=== PATIENT | female | born 1935 | race Caucasian/White ===

== ENCOUNTER → 2016-03-03 | Outpatient (CLI) | payer OTHER ==
--- NOTE | 2016-03-03 15:45 | CT ---
EXAMINATION TYPE: CT brain wo con DATE OF EXAM: 03/03/2016 2:44 PM COMPARISON: NONE HISTORY: 80-year-old female with frequent falls TECHNIQUE: Examination was done in axial plane without intravenous contrast. Coronal and sagittal reconstructio ns performed. CT DLP: 1091 mGycm Automated exposure control for dose reduction was used. FINDINGS: There is no evidence of acute intracranial hemorrhage, acute ischemic changes, mass, mass-effect, or extra-axial fluid collection. There is no effacement of cerebral sulci or basal subarachnoid cister ns. There is no midline shift. Deleon-white matter distinction is preserved. There appears to be some chronic right parietal calvarial deformity probably on a postsurgical basis. Normal variant persistent cavum septum pellucidum. There is mild ventricular prominence from mild tay tral cerebral volume loss and moderate patchy and confluent white matter hypodensities in both cerebr al hemispheres. More prominent hypodensity in the right occipital lobe benign basal ganglia calcifica tions are noted. Evidence of prior sinonasal surgery with moderate mucosal thickening throughout the left ethmoid air cells, left maxillary sinus, and within air-fluid level in the left maxillary sinus. Visualized orbit s and globes are intact. Minimal partial opacification of the inferior left mastoid air cells. IMPRESSION: 1. No acute intracranial abnormality seen. Mild atrophy and moderate patchy and confluent changes of chronic small vessel ischemic disease. The 2 Some encephalomalacia within the right occipital lobe boles ggests sequela of prior traumatic or vascular insult. 3. Some deformity to the right parietal calvarium could be on a posttraumatic or postsurgical basis. Clinically correlate. 4. Moderate ethmoid and left maxillary sinus disease. Correlate for superimposed acute sinusitis give n air-fluid level. 5. Subtle opacification in the inferior left mastoid air cells could represent retained secretions. C orrelate for any pain in this area to exclude mastoiditis.
== END | disposition home or self-care (01) ==
LOC: RADCTMAIN 13:55
PROVIDERS: ATTEND Psychiatry & Neurology Neurology
DX: G31.9 Degenerative disease of nervous system, unspecified (principal); I67.82 Cerebral ischemia
CPT/HCPCS: 70450

== ENCOUNTER → 2016-09-24 | Outpatient (CLI) | payer OTHER ==
[2016-09-24 16:58] LABS: CH 29.1; CHCM 32.5; HCT 40.6 % (34.0-46.0); HDW 2.34; HGB 13.5 gm/dL (11.4-16.0); MCH 29.9 pg (25.0-35.0); MCHC 33.2 g/dL (31.0-37.0); MCV 89.9 fL (80.0-100.0); Mean Platelet Volume 7.3; RBC 4.52 m/uL (3.80-5.40); RDW 12.5 % (11.5-15.5); WBC 8.8 k/uL (3.8-10.6)
[2016-09-24 17:08] LABS: Anion Gap 12 mmol/L; Blood Urea Nitrogen 21 mg/dL (7-17); Carbon Dioxide 28 mmol/L (22-30); Chloride 105 mmol/L (98-107); Non-African American GFR(MDRD) 60 (>60 ml/min/1.73 sqM); Potassium 4.6 mmol/L (3.5-5.1); Sodium 145 mmol/L (137-145)
== END | disposition home or self-care (01) ==
LOC: LABPAT 16:12
PROVIDERS: ATTEND Internal Medicine Cardiovascular Disease
DX: Z01.812 Encounter for preprocedural laboratory examination (principal); I44.2 Atrioventricular block, complete
CPT/HCPCS: 80051; 82565; 84520; 85027

== ENCOUNTER 2016-09-27 13:51 | Day surgery (SDC) | payer OTHER ==
[2016-09-27 11:06] VITALS: RESP 18
--- NOTE | 2016-09-27 13:36 | P.PCN ---
Date of Procedure: 09/27/16 Preoperative Diagnosis: Battery depletion Postoperative Diagnosis: The same Procedure(s) Performed: Generator replacement Implants: Indications for Procedure: Operative Findings: Description of Procedure: HISTORY: This 81-year-old female was noted to have evidence of battery depletion on recent evaluation and patient has reached WINNIE. Patient is advised to have generator change. CONSENT: I have discussed the risks and benefits as related to the above mentioned procedure and both sedation/analgesia as well as necessary blood product administration. The patient has indicated understanding and acceptance of the risks of the procedure discussed. PROCEDURE: Patient was brought to the lab in a fasting state. Patient was given IV Versed and fentanyl for sedation. The skin over the existing pulse generator was infiltrated with lidocaine. An incision was made in the skin and was deepened until the pectoral fascia was exposed. Hemostasis was obtained. The existing pulse generator was pulled out of the pocket. The leads were disconnected and were checked for thresholds. Conscious Sedation: Versed : 0 mg Fentanyl : 25 g Duration : 27 minutes THRESHOLDS: ATRIAL: The minimal patient threshold is a 0.7 V at pulse width of 0.4 ms with impedance of 389 ohms P-wave:, 2.1 mV VENTRICULAR: 0.9 V at a pulse width of 0.4 ms with impedance of 6 and 40 ohms R-wave: 16.9 mV THE LEADS: ATRIAL: This is manufactured by [employer] model number is 5076. Serial number is [id number] VENTRICULAR: This is manufactured by [employer]. Model number is 5076. Serial number is [id number] THE EXPLANTED DEVICE: This is manufactured by [employer]. Model number is capital VDER 01 and the serial number is [id number] THE NEW DEVICE: . This is manufactured by [employer]. Model number is L101. Serial number is [id number] The leads were then connected to a new pulse generator. Pacemaker seems to function normally. The pocket was irrigated with antibiotics. The pocket was closed in the usual fashion. Pectoral fascia was closed with 2-0 Prolene, the subcutaneous tissue was closed with 3-0 Prolene and the skin was closed with 4- 0 Prolene. Patient tolerated the procedure well . Patient will be monitored on the telemetry unit for 2-3 hours. If stable patient be discharged home later today. PLAN: Patient will be monitored for the next several hours. If stable patient be discharged home. She'll continue prophylactic antibiotics and home medications. She'll keep the dressing dry for the one week. She will report if she had any significant pain, swelling, fever or chills. follow-up in the office in one week FALLOW UP: One week with Dr. Dia and also in the device clinic.
[~2016-09-27 13:51] MED LIST: ACETAMINOPHEN TAB 325 MG TAB PO PRN; HYDROcodone/APAP 5-325MG 1 EACH TAB PO PRN; LIDOCAINE 1% (PF) 10MG/ML VIAL SQ ONE; SODIUM CHLORIDE 0.9% 1,000 ML IV SCH; ceFAZolin 1,000 MG in SODIUM CHLORIDE 0.9% IRRIGATIO 250 ML IRRIGATION ONE; ceFAZolin 2 GM in SODIUM CHLORIDE 0.9% 100 ML IVPB ONE; fentaNYL (PF) 50 MCG/ML 2 ML AMP IVP ONE
[2016-09-27 14:43] VITALS: TEMP 97.7
[2016-09-27 17:40] VITALS: BP 138/70; PULSE 57
--- NOTE | 2016-09-30 08:00 | CDI ---
Documentation Clarification OP Dear Dr. Dia, Please provide clarification regarding the sedation provided. The Procedure note just states that Versed and Fentynal wer given. Please clarify if Moderate /Conscious sedation or GA/Unconscious sedation was provided to the patient. PLEASE RESPOND TO THIS QUERY BY DICTATING AN ADDENDUM TO YOUR PROCEDURE NOTE. Thank you for your assistance. Marta Soriano [facility] If you have any questions, please contact Cutting Room Supervisor, Nika Burton at . [facility]
== END 2016-09-27 18:50 | disposition home or self-care (01) ==
LOC: CATHEP 13:51 → 3OBS 13:52 → CATHEP 18:50
PROVIDERS: ATTEND Internal Medicine Cardiovascular Disease
DX: Z45.010 Encounter for checking and testing of cardiac pacemaker pulse generator [battery] (principal); I44.2 Atrioventricular block, complete; E78.5 Hyperlipidemia, unspecified; I10 Essential (primary) hypertension; Z79.82 Long term (current) use of aspirin; Z79.51 Long term (current) use of inhaled steroids; Z79.899 Other long term (current) drug therapy; Z91.018 Allergy to other foods; Z91.09 Other allergy status, other than to drugs and biological substances
CPT/HCPCS: 33228

== ENCOUNTER → 2016-11-11 | Outpatient (CLI) | payer OTHER ==
--- NOTE | 2016-11-12 10:55 | MM ---
Reason for exam: screening (asymptomatic). Last mammogram was performed 1 year and 2 months ago. History: Patient is postmenopausal and history of other cancer. Physical Findings: A clinical breast exam by your physician is recommended on an annual basis and results should be correlated with mammographic findings. MG Screening Mammo w CAD Bilateral CC and MLO view(s) were taken. Prior study comparison: September 15, 2015, bilateral MG 3d screening mammo w/cad. September 13, 2014, mammogram, performed at [facility]. There are scattered fibroglandular densities. No significant changes when compared with prior studies. ASSESSMENT: Benign, BI-RAD 2 RECOMMENDATION: Routine screening mammogram of both breasts in 1 year.
== END | disposition home or self-care (01) ==
LOC: RADMAMWWP 11:59
PROVIDERS: ATTEND Family Medicine
DX: Z12.31 Encounter for screening mammogram for malignant neoplasm of breast (principal)

== ENCOUNTER → 2016-11-11 | Outpatient (CLI) | payer OTHER ==
--- NOTE | 2016-11-11 16:22 | BD ---
EXAMINATION TYPE: MG DEXA axial skeleton. DATE OF EXAM: 11/11/2016 COMPARISON: NONE CLINICAL HISTORY: 81-year-old female osteoporosis Height: 5 FT 4 IN Weight: 172 FRAX RISK QUESTIONS: Alcohol (3 or more units per day): NO Family History (Parent hip fracture): NO Glucocorticoids (More than 3mos): NO (Ex: prednisone, prednisolone, methylprednisolone, dexamethasone, and hydrocortisone). History of Fracture in Adulthood: YES Secondary Osteoporosis: 1. Type 1 Diabetes: NO 2. Hyperthyroidism: NO 3. Menopause before 45: YES 4. Malnutrition: NO 5. Chronic liver disease: NO Rheumatoid Arthritis: NO Current Tobacco Use: NO RISK FACTORS HISTORY OF: Surgery to Spine/Hip(right/left)/Wrist (right/left): LUMBAR SURG When: 1982 Postmenopausal woman: PART HYST AGE 34 Lost more than 2 inches in height since high school: YES MEDICATIONS: Additional Medications: BLOOD PRESSURE MEDS X 2 , OMEPRAZOLE,BABY ASPIRIN,CALCIUM, VIT D, Additional History: BLADDER CANCER, BRAIN CANCER EXAM MEASUREMENTS: Bone mineral densitometry was performed using the [employer] System. Bone mineral density as measured about the Lumbar spine is: ----- L1-L4(G/cm2): LUMBAR SURG Bone mineral density about the R hip (g/cm2): 0.863 Bone mineral density about the L hip (g/cm2): 0.852 T Score values are as follows: -----R Neck: -1.3 -----L Neck: -1.3 -----R Total: -0.7 -----L Total: -1.3 BASELINE IMPRESSION: Osteopenia (T Score between -2.5 and -1 as noted by T score values There is slightly increased risk of fracture and the patient may be considered for treatment. Re-Scre en 2-5 years. NOTE: T-SCORE=SD OF THE YOUNG ADULT MEAN.
== END | disposition home or self-care (01) ==
LOC: RADBDWWP 12:05
PROVIDERS: ATTEND Family Medicine
DX: M85.88 Other specified disorders of bone density and structure, other site (principal)
CPT/HCPCS: 77080

== ENCOUNTER → 2019-02-01 | Outpatient (CLI) | payer OTHER ==
--- NOTE | 2019-02-02 15:02 | MM ---
Reason for exam: screening (asymptomatic). Last mammogram was performed 1 year and 1 month ago. History: Patient is postmenopausal and history of other cancer. Physical Findings: A clinical breast exam by your physician is recommended on an annual basis and results should be correlated with mammographic findings. MG 3D Screening Mammo W/Cad Bilateral CC and MLO view(s) were taken. Prior study comparison: January 12, 2018, bilateral MG screening mammo w CAD. November 11, 2016, bilateral MG screening mammo w CAD. The breast tissue is heterogeneously dense. This may lower the sensitivity of mammography. Focal asymmetry upper outer right breast posterior third position. ASSESSMENT: Incomplete: need additional imaging evaluation, BI-RAD 0 RECOMMENDATION: Special view mammogram of the right breast. If lesion persists on supplemental views, image directed ultrasound is recommended. [facility] will attempt to contact patient to return for supplemental views and ultrasound if indicated.
== END | disposition home or self-care (01) ==
LOC: RADMAMWWP 10:18
DX: Z12.31 Encounter for screening mammogram for malignant neoplasm of breast (principal)
CPT/HCPCS: 77063; 77067

== ENCOUNTER → 2019-02-16 | Outpatient (CLI) | payer OTHER ==
--- NOTE | 2019-02-19 08:45 | MM ---
Reason for exam: additional evaluation requested from abnormal screening. Last mammogram was performed less than 1 month ago. History: Patient is postmenopausal and history of other cancer. Physical Findings: Nurse did not find any significant physical abnormalities on exam. MG 3D Work Up W/Cad RT Spot compression CC, spot compression MLO, and ML view(s) were taken of the right breast. Prior study comparison: February 01, 2019, bilateral MG 3d screening mammo w/cad. January 12, 2018, bilateral MG screening mammo w CAD. There are scattered fibroglandular densities. No persisting abnormality on spot 3D views. These results were verbally communicated with the patient and result sheet given to the patient on 02/16/19. ASSESSMENT: Negative, BI-RAD 1 RECOMMENDATION: Return to routine screening mammogram schedule for both breasts.
== END | disposition home or self-care (01) ==
LOC: RADMAMWWP 13:51
DX: R92.8 Other abnormal and inconclusive findings on diagnostic imaging of breast (principal)
CPT/HCPCS: 77061; 77065

== ENCOUNTER → 2020-05-13 | Outpatient (CLI) | payer OTHER ==
--- NOTE | 2020-05-15 12:31 | MM ---
Reason for exam: screening (asymptomatic). Last mammogram was performed 1 year and 3 months ago. History: Patient is postmenopausal and history of other cancer. Physical Findings: A clinical breast exam by your physician is recommended on an annual basis and results should be correlated with mammographic findings. MG 3D Screening Mammo W/Cad Bilateral CC and MLO view(s) were taken. Prior study comparison: February 16, 2019, right breast MG 3d work up w/cad RT. February 01, 2019, bilateral MG 3d screening mammo w/cad. No significant changes when compared with prior studies. ASSESSMENT: Benign, BI-RAD 2 RECOMMENDATION: Routine screening mammogram of both breasts in 1 year.
== END | disposition home or self-care (01) ==
LOC: RADMAMWWP 12:30
DX: Z12.31 Encounter for screening mammogram for malignant neoplasm of breast (principal)
CPT/HCPCS: 77063; 77067

== ENCOUNTER 2020-06-26 13:05 | Emergency (ER) | payer OTHER ==
[2020-06-26 13:17] VITALS: BP 151/71; PULSE 68; RESP 18; TEMP 97.6
--- NOTE | 2020-06-26 14:38 | CT ---
EXAMINATION TYPE: CT brain amy wo con DATE OF EXAM: 06/26/2020 COMPARISON: CT brain 03/03/2016 HISTORY: Fall, right periorbital injury. CT DLP: 1027.9 mGycm Automated exposure control for dose reduction was used. There is cerebral cortical atrophy. There is no mass effect nor midline shift. There is no sign of in tracranial hemorrhage. 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 There is hypodensity right medial occipital lobe consistent with old infarct and encephaloma lacia. There is patchy hypodensity throughout the periventricular white matter. There is mucosal thickening in the maxillary ethmoid frontal and sphenoid sinuses. Cervical vertebra have normal alignment. There is no evidence of a fracture. There is mild cervical d isc space narrowing. Facet joints are intact. There is multilevel mild facet arthropathy. There is no rmal aeration of the mastoid sinuses. Skull base is intact. IMPRESSION: Cerebral atrophy and chronic small vessel ischemia. Old right occipital lobe infarct. No acute intrac ranial abnormality. No significant change. Mild spondylotic changes in the cervical spine. No fracture. Pansinusitis that appears slightly worse than old exam.
--- NOTE | 2020-06-26 14:44 | CT ---
EXAMINATION TYPE: CT facial bones wo con DATE OF EXAM: 06/26/2020 COMPARISON: None HISTORY: Fall, right periorbital injury. CT DLP: mGycm Automated exposure control for dose reduction was used. Images obtained from the bottom of the mandible to the top of the frontal sinuses without contrast. There is comminuted fractures of the nasal bone which is deviated slightly to the left side. There is some loss of bone on the anterior right side of the nasal bone in this is unchanged compared to old brain CT scan of 03/03/2016. Fractures could also be old. There is extensive mucosal thickening in the paranasal sinuses. There is significant opacification ri ght maxillary sinus. There is previous surgery and osteotomy of the medial wall of the maxillary sinu ses. There is intact zygomatic arches. I see no evidence of a blowout fracture. Orbital margins are i ntact. I see no sign of a fracture of the maxilla. The mandibular ring is intact. Temporomandibular joints appear intact. There is no evidence of orbita l mass. The globes are symmetric. IMPRESSION: There is pansinusitis that is increased compared to CT scan of 03/03/2016. Nasal bone fracture is probably not changed compared to the old CT scan which only includes partial v isualization of the nasal bone. No evidence of orbital fracture.
--- NOTE | 2020-06-26 14:49 | XR ---
EXAMINATION TYPE: XR ribs LT w pa chest xray DATE OF EXAM: 06/26/2020 COMPARISON: 06/21/1949 HISTORY: Pain TECHNIQUE: Single view of the chest 4 views of the ribs are submitted. FINDINGS: The lungs are clear. No Evidence for pneumothorax. No evidence for focal contusion. Medi astinal structures are midline. Evaluation of the ribs fails to demonstrate evidence for displaced r ib fracture or secondary sign of rib fracture. IMPRESSION: Negative study
--- NOTE | 2020-06-26 14:50 | XR ---
EXAMINATION TYPE: XR hand complete LT DATE OF EXAM: 06/26/2020 CLINICAL HISTORY: pain TECHNIQUE: Frontal, lateral and oblique images of the left hand are obtained. COMPARISON: None. FINDINGS: There is no acute fracture/dislocation evident. The joint spaces appear within normal limi ts. The overlying soft tissue appears unremarkable. IMPRESSION: There is no acute fracture or dislocation. ICD 10 NO FRACTURE, INITIAL EVALUATION
--- NOTE | 2020-06-26 14:52 | XR ---
EXAMINATION TYPE: XR foot complete LT DATE OF EXAM: 06/26/2020 CLINICAL HISTORY: pain TECHNIQUE: Frontal, lateral and oblique images of the left foot are obtained. COMPARISON: None. FINDINGS: There is cortical lucency overlying the neck region of the proximal phalanx left great toe. Nondisplaced fractures difficult to exclude. The joint spaces appear within normal limits. The ove rlying soft tissue appears unremarkable. IMPRESSION: There is cortical lucency overlying the neck region of the proximal phalanx left great toe. Nondispla nilsa fractures difficult to exclude.
--- NOTE | 2020-06-26 15:18 | ED ---
Fall HPI - General Chief Complaint: Fall Stated Complaint: fall Time Seen by Provider: 06/26/20 13:28 Source: patient Mode of arrival: ambulatory - History of Present Illness Initial Comments: Patient is an 85-year-old female presenting to emergency Department with complaints of some pain after she fell this morning. She states that about 8 AM this morning she tripped over her feet and fell forward landing mostly on her left side also hitting the right side of her face. She denies loss of consciousness, she is not on blood thinners. She is complaining of pain around her right eye, her left finger, left side of her chest as well as her left big toe. Into her doctor's office however was unable to so she decided to come into the ER for further evaluation. She states her pain is minimal about a 3/10, she did not take anything for pain yet. She denies any abdominal pain, no nausea or vomiting, no lightheadedness or dizziness. She denies any headaches other than around her left eye. She has no further complaints at this time. Upon arrival to the ER, her vitals are stable. - Related Data Home Medications Medication Instructions Recorded Confirmed Ammonium Lactate Cream [Lac-Hydrin 1 applic TOPICAL DAILY 09/27/16 09/27/16 12% Cream] Aspirin [Adult Low Dose Aspirin EC] 81 mg PO DAILY 09/27/16 09/27/16 Atorvastatin [Lipitor] 40 mg PO HS 09/27/16 09/27/16 Calcium Carbonate 500 mg PO DAILY 09/27/16 09/27/16 Cholecalciferol [Vitamin D3] 1,000 unit PO DAILY 09/27/16 09/27/16 Diltiazem HCl [Diltiazem ER] 180 mg PO Q24HR 09/27/16 09/27/16 FLUoxetine HCL [Sarafem] 20 mg PO DAILY 09/27/16 09/27/16 Pantoprazole Sodium 40 mg PO BID 09/27/16 09/27/16 Propranolol HCl 20 mg PO BID 09/27/16 09/27/16 diazePAM [Diazepam] 10 mg PO DIRECTED PRN 09/27/16 09/27/16 Previous Rx's Medication Instructions Recorded Cephalexin [Keflex] 500 mg PO Q8HR #10 cap 09/27/16 Allergies Allergy/AdvReac Type Severity Reaction Status Date / Time Fish Containing Products Allergy Unknown Verified 06/26/20 13:17 Iodine and Iodide Containing Allergy Unknown Verified 06/26/20 13:17 Produc Review of Systems ROS Statement: Those systems with pertinent positive or pertinent negative responses have been documented in the HPI. ROS Other: All systems not noted in ROS Statement are negative. Past Medical History Past Medical History: Cancer Additional Past Medical History / Comment(s): brain and bladder CA History of Any Multi-Drug Resistant Organisms: None Reported Past Surgical History: Pacemaker Smoking Status: Never smoker Past Alcohol Use History: None Reported Past Drug Use History: None Reported General Exam - General Exam Comments Initial Comments: GENERAL: Patient is well-developed and well-nourished. Patient is nontoxic and in no acute distress. HEAD: Atraumatic, normocephalic. There are no hematomas, no signs of basilar skull fracture. EYES: Pupils equal round and reactive to light, extraocular movements intact, sclera anicteric, conjunctiva are normal. Eyelids were unremarkable. Patient has some mild bruising and mild swelling noted around her right thigh, some mild tenderness on inferior orbital bone ENT: TMs normal, nares patent, oropharynx clear without exudates. Moist mucous membranes. NECK: Normal range of motion, supple without lymphadenopathy or JVD. No midline tenderness. LUNGS: Unlabored respirations. Breath sounds clear to auscultation bilaterally and equal. No wheezes rales or rhonchi. HEART: Regular rate and rhythm without murmurs, rubs or gallops. ABDOMEN: Soft, nontender, normoactive bowel sounds. No guarding, no rebound. No masses appreciated. : Deferred MUSCULOSKELETAL: Normal extremities with adequate strength and normal range of motion. No clubbing or cyanosis. Patient has pain with palpation of the left great toe, she has bruising and swelling to this area, she does have active range of motion, neurovascular intact. She also has some bruising noted to the left breast, some mild tenderness with palpation left side of the ribs. NEUROLOGICAL: Patient is alert and oriented x 3. Motor and sensory are also intact. Cranial nerves II through XII grossly intact. Symmetrical smile. Normal speech, normal gait. PSYCH: Normal mood, normal affect. SKIN: Warm, Dry, normal turgor, no rashes. Patient has a small superficial abrasion noted to the left index finger, no active bleeding, no sutures indicated. Limitations: no limitations Course Vital Signs 06/26/20 13:13 Temperature 97.6 F Pulse Rate 68 Respiratory 18 Rate Blood Pressure 151/71 O2 Sat by Pulse 100 Oximetry Procedures - Orthopedic Splinting/Casting Injury #1 Side: left Lower Extremity Injury Location: toe Lower Extremity Immobilizer: post-op shoe Medical Decision Making - Medical Decision Making Patient is an 85-year-old female here after a fall at her place for a BM this morning. No loss of consciousness, she is not on blood thinners. She hit the right side of her eye, complaining of left sided chest pain, left index finger pain and pain of the left great toe. CT of the brain and C-spine showed no acute fractures, CT of the facial bones shows an old nasal bone fracture, no fracture of the orbits. X-rays of the left hand is normal, chest x-ray relaxers are also normal. X-rays of the left foot show a cortical lucency over the neck region and the proximal phalanx of the left great toe, nondisplaced fracture is difficult to exclude. I will send patient home and a surgical boot. She will follow up with orthopedics through the [facility]. She inclined anything for pain today. I recommended Tylenol for any discomfort at home. Patient is stable for discharge. Patient is in agreement with this plan of care. Return parameters were discussed with the patient and they verbalized understanding. Case discussed with Dr. Ferraro. Disposition Clinical Impression: Fall, Closed fracture of left great toe Disposition: HOME SELF-CARE Condition: Stable Instructions (If sedation given, give patient instructions): Toe Fracture (ED) Additional Instructions: Please return to the Emergency Department if symptoms worsen or any other concerns. Recommend surgical boot as discussed. Please follow up with orthopedics to the [facility]. May take Tylenol for any discomfort. May also apply ice to the area for pain and swelling. Is patient prescribed a controlled substance at d/c from ED?: No Referrals: [facility],Clinic [Primary Care Provider] - 1-2 days Time of Disposition: 15:17
== END 2020-06-26 15:32 | disposition home or self-care (01) ==
LOC: EC 13:05
DX: S92.412A Displaced fracture of proximal phalanx of left great toe, initial encounter for closed fracture (principal); S20.02XA Contusion of left breast, initial encounter; R51.9 Headache, unspecified; M79.645 Pain in left finger(s); Z79.82 Long term (current) use of aspirin; W01.10XA Fall on same level from slipping, tripping and stumbling with subsequent striking against unspecified object, initial encounter
CPT/HCPCS: 70450; 70486; 72125; 99284

== ENCOUNTER 2021-02-14 16:30 | Emergency (ER) | payer OTHER ==
[2021-02-14 17:36] VITALS: RESP 18
[2021-02-14] MEDS ORDERED: ONDANSETRON 4 MG/2 ML VIAL IVP STA (18:05)
[2021-02-14] MEDS ORDERED: TRANEXAMIC ACID 1,000 MG/10 ML VIAL IRRIGATION ONE (18:05)
[2021-02-14] MEDS ORDERED: SODIUM CHLORIDE 0.9% 1,000 ML IV STA (18:05)
--- NOTE | 2021-02-14 18:06 | ED ---
ENT HPI - General Chief complaint: ENT Stated complaint: bloody nose, vomitting blood Time Seen by Provider: 02/14/21 17:33 Source: patient Mode of arrival: ambulatory Limitations: no limitations - History of Present Illness Initial comments: 85 she'll female presents to the emergency departments with reported nausea, vomiting and dizziness after having a nosebleed all day. Reports that her nose began bleeding around 11:00 this morning. She does take a baby aspirin. States that she attempted to get it to stop with direct pressure however was unsu ccessful. She did end up swallowing a portion of the blood and had an upset stomach. She then ended up vomiting in the waiting room. Patient does not take any other blood thinners. Denies any nasal trauma. She denies any chest pain or abdominal pain. Does have a history of peptic ulcer however this was 30 years ago. She denies any abdominal pain. No other alleviating, precipitating or modifying factors - Related Data Home Medications Medication Instructions Recorded Confirmed Ammonium Lactate Cream [Lac-Hydrin 1 applic TOPICAL DAILY 09/27/16 09/27/16 12% Cream] Aspirin [Adult Low Dose Aspirin EC] 81 mg PO DAILY 09/27/16 09/27/16 Atorvastatin [Lipitor] 40 mg PO HS 09/27/16 09/27/16 Calcium Carbonate 500 mg PO DAILY 09/27/16 09/27/16 Cholecalciferol [Vitamin D3] 1,000 unit PO DAILY 09/27/16 09/27/16 Diltiazem HCl [Diltiazem ER] 180 mg PO Q24HR 09/27/16 09/27/16 FLUoxetine HCL [Sarafem] 20 mg PO DAILY 09/27/16 09/27/16 Pantoprazole Sodium 40 mg PO BID 09/27/16 09/27/16 Propranolol HCl 20 mg PO BID 09/27/16 09/27/16 diazePAM [Diazepam] 10 mg PO DIRECTED PRN 09/27/16 09/27/16 Previous Rx's Medication Instructions Recorded Cephalexin [Keflex] 500 mg PO Q8HR #10 cap 09/27/16 Cephalexin [Keflex] 500 mg PO Q6HR 1 Days #12 cap 02/14/21 Allergies Allergy/AdvReac Type Severity Reaction Status Date / Time Fish Containing Products Allergy Unknown Verified 06/26/20 13:17 Iodine and Iodide Containing Allergy Unknown Verified 06/26/20 13:17 Produc Review of Systems ROS Statement: Those systems with pertinent positive or pertinent negative responses have been documented in the HPI. ROS Other: All systems not noted in ROS Statement are negative. Past Medical History Past Medical History: Cancer Additional Past Medical History / Comment(s): brain and bladder CA History of Any Multi-Drug Resistant Organisms: None Reported Past Surgical History: Pacemaker Past Psychological History: No Psychological Hx Reported Smoking Status: Never smoker Past Alcohol Use History: None Reported Past Drug Use History: None Reported General Exam Limitations: no limitations General appearance: alert, in no apparent distress Head exam: Present: atraumatic, normocephalic, normal inspection Eye exam: Present: normal appearance, PERRL, EOMI. Absent: scleral icterus, conjunctival injection, periorbital swelling ENT exam: Present: other (epistaxsis left nare - red, abradded nasal septum with pinpoint areas of active blood oozing. No masses. No septal hematoma. No posterior nasal bleeding. No blood in the posterior pharynx) Neck exam: Present: normal inspection. Absent: tenderness, meningismus, lym phadenopathy Respiratory exam: Present: normal lung sounds bilaterally. Absent: respiratory distress, wheezes, rales, rhonchi, stridor Cardiovascular Exam: Present: regular rate, normal rhythm, normal heart sounds. Absent: systolic murmur, diastolic murmur, rubs, gallop, clicks GI/Abdominal exam: Present: soft, normal bowel sounds. Absent: distended, tenderness, guarding, rebound, rigid Extremities exam: Present: normal inspection, full ROM, normal capillary refill. Absent: tenderness, pedal edema, joint swelling, calf tenderness Back exam: Present: normal inspection Neurological exam: Present: alert, oriented X3, CN II-XII intact Psychiatric exam: Present: normal affect, normal mood Skin exam: Present: warm, dry, intact, normal color. Absent: rash Course Vital Signs 02/14/21 02/14/21 02/14/21 17:32 19:25 20:40 Temperature 98.6 F 98.8 F Pulse Rate 64 62 78 Respiratory 18 18 18 Rate Blood Pressure 96/63 118/77 124/82 O2 Sat by Pulse 97 94 L 94 L Oximetry Medical Decision Making - Medical Decision Making Upon arrival patient was placed into room 3. A thorough history and physical exam is performed. Patient has some oozing from the left nare. Laboratory studies are conducted as the patient does have lower blood pressures and is reporting that she feels dizzy. Hemoglobin is 11.3. I have a previous value from 2017 which was 13.5 but nothing in between. Patient was given a liter bolus of normal saline and formal grams of Zofran. I also ordered TX a however this does take over an hour to come up from pharmacy. It is placed on a cotton ball and this is placed in the patient's left nare for 15 minutes. The ball then removed and the patient continues to have some oozing. Because this the patient's nose is packed with an 8 cm Merocel. This was coated in bacitracin. Patient does not have any identifiable signs of a posterior nasal bleed. No bleeding inside the patient's mouth. I believe the patient is throwing up blood as she does have that identifiable epistaxis and she admits to swallowing some of the clots. Patient will be discharged home and is instructed to keep the packing in place for the next 48-72 hours. She needs to follow up with the ENT to have it removed. She will be placed on Keflex while the packing is in place. Instructed not to blow her nose. Return to the emergency room for any new or worsening symptoms. Patient was in agreement with the treatment plan and discharged home in stable condition - Lab Data Result diagrams: 02/14/21 18:11 02/14/21 18:11 Lab Results 02/14/21 02/14/21 02/14/21 Range/Units 18:11 18:11 18:11 WBC 11.8 H (3.8-10.6) k/uL RBC 3.71 L (3.80-5.40) m/uL Hgb 11.3 L (11.4-16.0) gm/dL Hct 34.3 (34.0-46.0) % MCV 92.5 (80.0-100.0) fL MCH 30.4 (25.0-35.0) pg MCHC 32.9 (31.0-37.0) g/dL RDW 12.2 (11.5-15.5) % Plt Count 280 (150-450) k/uL MPV 8.0 Neutrophils % 80 % Lymphocytes % 14 % Monocytes % 4 % Eosinophils % 2 % Basophils % 1 % Neutrophils # 9.4 H (1.3-7.7) k/uL Lymphocytes # 1.6 (1.0-4.8) k/uL Monocytes # 0.5 (0-1.0) k/uL Eosinophils # 0.2 (0-0.7) k/uL Basophils # 0.1 (0-0.2) k/uL PT 10.7 (9.0-12.0) sec INR 1.0 (<1.2) APTT 20.1 L (22.0-30.0) sec Sodium 139 (137-145) mmol/L Potassium 4.8 (3.5-5.1) mmol/L Chloride 104 (98-107) mmol/L Carbon Dioxide 24 (22-30) mmol/L Anion Gap 11 mmol/L BUN 27 H (7-17) mg/dL Creatinine 1.16 H (0.52-1.04) mg/dL Est GFR (CKD-EPI)AfAm 50 (>60 ml/min/1.73 sqM) Est GFR (CKD-EPI)NonAf 43 (>60 ml/min/1.73 sqM) Glucose 161 H (74-99) mg/dL Calcium 9.3 (8.4-10.2) mg/dL Total Bilirubin 0.7 (0.2-1.3) mg/dL AST 22 (14-36) U/L ALT 12 (4-34) U/L Alkaline Phosphatase 100 (38-126) U/L Total Protein 6.5 (6.3-8.2) g/dL Albumin 3.4 L (3.5-5.0) g/dL Disposition Clinical Impression: Nosebleed, Pre-syncope Disposition: HOME SELF-CARE Instructions (If sedation given, give patient instructions): Nosebleed (ED) Additional Instructions: Please follow-up with the ENT to have your nasal packing removed in 48-72 hours. You should be on antibiotics while this packing is in place. Return to the emergency room for any new or worsening symptoms Prescriptions: Cephalexin [Keflex] 500 mg PO Q6HR 1 Days #12 cap Is patient prescribed a controlled substance at d/c from ED?: No Referrals: [facility],Clinic [Primary Care Provider] - 1-2 days Agus Moore MD [STAFF PHYSICIAN] - 1-2 days Time of Disposition: 20:35
[2021-02-14 18:23] LABS: Basophils # (A) 0.1 k/uL (0-0.2); Basophils % (A) 1 %; Eosinophils # (A) 0.2 k/uL (0-0.7); Eosinophils % (A) 2 %; HCT 34.3 % (34.0-46.0); HGB 11.3 gm/dL (11.4-16.0); Lymphocytes # (A) 1.6 k/uL (1.0-4.8); Lymphocytes % (A) 14 %; MCH 30.4 pg (25.0-35.0); MCHC 32.9 g/dL (31.0-37.0); MCV 92.5 fL (80.0-100.0); Monocytes # (A) 0.5 k/uL (0-1.0); Monocytes % (A) 4 %; Neutrophils # (A) 9.4 k/uL (1.3-7.7); Neutrophils % (A) 80 %; Platelet Count 280 k/uL (150-450); RBC 3.71 m/uL (3.80-5.40); RDW 12.2 % (11.5-15.5); WBC 11.8 k/uL (3.8-10.6)
[2021-02-14 18:41] LABS: Albumin 3.4 g/dL (3.5-5.0); Calcium 9.3 mg/dL (8.4-10.2); Potassium 4.8 mmol/L (3.5-5.1); Total Bilirubin 0.7 mg/dL (0.2-1.3); Total Protein 6.5 g/dL (6.3-8.2)
[2021-02-14 19:09] LABS: Prothrombin Time 10.7 sec (9.0-12.0)
[2021-02-14 19:17] LABS: Partial Thromboplastin Time 20.1 sec (22.0-30.0)
[2021-02-14 19:37] VITALS: TEMP 98.8
[2021-02-14] MEDS ORDERED: BACITRACIN OINT 1 EACH PACKET TOPICAL ONE (20:11)
[2021-02-14 21:01] VITALS: BP 124/82; PULSE 78
== END 2021-02-14 20:42 | disposition home or self-care (01) ==
LOC: EC 16:30
DX: R04.0 Epistaxis (principal); R55 Syncope and collapse; R11.2 Nausea with vomiting, unspecified; Z91.013 Allergy to seafood; Z88.8 Allergy status to other drugs, medicaments and biological substances; Z79.82 Long term (current) use of aspirin
CPT/HCPCS: 36415; 80053; 85025; 85610; 85730; 99284; 96374; 96361; J2405

== ENCOUNTER 2021-06-05 10:53 | Emergency (ER) | payer OTHER ==
[2021-06-05 11:52] VITALS: TEMP 98.2
--- NOTE | 2021-06-05 12:36 | ED ---
General Adult HPI - General Chief complaint: Dizziness Stated complaint: Fall/Dizziness Time Seen by Provider: 06/05/21 12:04 Source: patient, family Mode of arrival: ambulatory Limitations: no limitations - History of Present Illness Initial comments: Dictation was produced using [employer] dictation software. please excuse any grammatical, word or spelling errors. Chief Complaint: 86-year-old female with past medical history of brain and bladder cancer presents emergency department for left-sided hip pain, frequent falls and episodes of vertigo History of Present Illness: Which is a 86-year-old female last several days she's been having worsening symptoms of frequent falls, left hip pain vertigo. Patient states she's been diagnosed with vertigo several years ago. Patient denies any numbness tingling weakness paresthesias to the extremities. She does complain of some mild left-sided hip pain. Patient states she feels a little dizzy. She does have paroxysms of vertigo whenever she lies her head back. Denies any vertiginous symptoms at the moment however he does complain of some mild dizziness. Denies any pain complex. No constitutional symptoms. The ROS documented in this emergency department record has been reviewed and confirmed by me. Those systems with pertinent positive or negative responses have been documented in the HPI. All other systems are other negative and/or noncontributory. PHYSICAL EXAM: General Impression: Alert and oriented x3, not in acute distress HEENT: Normocephalic atraumatic, extra-ocular movements intact, pupils equal and reactive to light bilaterally, mucous membranes moist. Cardiovascular: Heart regular rate and rhythm Chest: Able to complete full sentences, no retractions, no tachypnea Abdomen: abdomen soft, non-tender, non-distended, no organomegaly Musculoskeletal: Pulses present and equal in all extremities, no peripheral edema Motor: no focal deficits noted Neurological: CN II-XII grossly intact, no focal motor or sensory deficits noted Skin: Intact with no visualized rashes Psych: Normal affect and mood ED course: 86-year-old female presents to the emergency department for multiple falls, paroxysms of vertigo, left hip pain and dizziness. Vital signs upon arrival are within acceptable limits. Laboratory evaluation obtained. CBC, coag panel, metabolic panel is unremarkable. Urinalysis is negative. Imaging studies were obtained. Computed tomography scan of the head and C-spine shows no acute processes. 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 Chest x-ray is nonacute. Patient observed in emergency department for approximately 4 hours and 43 minutes. She is reevaluated at bedside at 3:30 PM on be stable medical condit ion. Patient's daughters at the bedside. Patient's daughter reports that she was at home however does not want to be placed in a senior living. Patient was given the option to be admitted however she refused. She lives by herself. She does have family. Daughter was told to follow-up with patient's primary care doctor to have home health care nursing arranged or to inquire about perhaps short-term rehab. EKG interpretation: Ventricular rate 60, atrial pacemaker, ME interval 150, QS 152, QTc 505. No ME prolongation, no QTC prolongation, no ST or T-wave changes noted. No old EKG for comparison. Overall, this EKG is unremarkable - Related Data Home Medications Medication Instructions Recorded Confirmed Ammonium Lactate Cream [Lac-Hydrin 1 applic TOPICAL DAILY 09/27/16 09/27/16 12% Cream] Aspirin [Adult Low Dose Aspirin EC] 81 mg PO DAILY 09/27/16 09/27/16 Atorvastatin [Lipitor] 40 mg PO HS 09/27/16 09/27/16 Calcium Carbonate 500 mg PO DAILY 09/27/16 09/27/16 Cholecalciferol [Vitamin D3] 1,000 unit PO DAILY 09/27/16 09/27/16 Diltiazem HCl [Diltiazem ER] 180 mg PO Q24HR 09/27/16 09/27/16 FLUoxetine HCL [Sarafem] 20 mg PO DAILY 09/27/16 09/27/16 Pantoprazole Sodium 40 mg PO BID 09/27/16 09/27/16 Propranolol HCl 20 mg PO BID 09/27/16 09/27/16 diazePAM 10 mg PO DIRECTED PRN 09/27/16 09/27/16 Previous Rx's Medication Instructions Recorded Cephalexin [Keflex] 500 mg PO Q8HR #10 cap 09/27/16 Cephalexin [Keflex] 500 mg PO Q6HR 1 Days #12 cap 02/14/21 Allergies Allergy/AdvReac Type Severity Reaction Status Date / Time Fish Containing Products Allergy Unknown Verified 06/26/20 13:17 Iodine and Iodide Containing Allergy Unknown Verified 06/05/21 11:52 Produc Review of Systems ROS Statement: Those systems with pertinent positive or pertinent negative responses have been documented in the HPI. ROS Other: All systems not noted in ROS Statement are negative. Past Medical History Past Medical History: Cancer Additional Past Medical History / Comment(s): brain and bladder CA History of Any Multi-Drug Resistant Organisms: None Reported Past Surgical History: Pacemaker Past Psychological History: No Psychological Hx Reported Smoking Status: Never smoker Past Alcohol Use History: None Reported Past Drug Use History: None Reported General Exam Limitations: no limitations Course Vital Signs 06/05/21 11:50 Temperature 98.2 F Pulse Rate 95 Respiratory 20 Rate Blood Pressure 124/81 O2 Sat by Pulse 97 Oximetry Medical Decision Making - Lab Data Result diagrams: 06/05/21 13:05 06/05/21 13:05 Lab Results 06/05/21 06/05/21 06/05/21 Range/Units 13:05 13:05 13:05 WBC 7.6 (3.8-10.6) k/uL RBC 4.28 (3.80-5.40) m/uL Hgb 12.5 (11.4-16.0) gm/dL Hct 38.3 (34.0-46.0) % MCV 89.3 (80.0-100.0) fL MCH 29.2 (25.0-35.0) pg MCHC 32.6 (31.0-37.0) g/dL RDW 13.3 (11.5-15.5) % Plt Count 302 (150-450) k/uL MPV 7.3 Neutrophils % 62 % Lymphocytes % 22 % Monocytes % 5 % Eosinophils % 6 % Basophils % 1 % Neutrophils # 4.7 (1.3-7.7) k/uL Lymphocytes # 1.7 (1.0-4.8) k/uL Monocytes # 0.4 (0-1.0) k/uL Eosinophils # 0.5 (0-0.7) k/uL Basophils # 0.1 (0-0.2) k/uL PT 10.4 (9.0-12.0) sec INR 0.9 (<1.2) APTT 21.1 L (22.0-30.0) sec Sodium (137-145) mmol/L Potassium (3.5-5.1) mmol/L Chloride (98-107) mmol/L Carbon Dioxide (22-30) mmol/L Anion Gap mmol/L BUN (7-17) mg/dL Creatinine (0.52-1.04) mg/dL Est GFR (CKD-EPI)AfAm (>60 ml/min/1.73 sqM) Est GFR (CKD-EPI)NonAf (>60 ml/min/1.73 sqM) Glucose (74-99) mg/dL Calcium (8.4-10.2) mg/dL Magnesium (1.6-2.3) mg/dL Total Bilirubin (0.2-1.3) mg/dL AST (14-36) U/L ALT (4-34) U/L Alkaline Phosphatase (38-126) U/L Total Protein (6.3-8.2) g/dL Albumin (3.5-5.0) g/dL Urine Color Urine Appearance (Clear) Urine pH (5.0-8.0) Ur Specific [place] (1.001-1.035) Urine Protein (Negative) Urine Glucose (UA) (Negative) Urine Ketones (Negative) Urine Blood (Negative) Urine Nitrite (Negative) Urine Bilirubin (Negative) Urine Urobilinogen (<2.0) mg/dL Ur Leukocyte Esterase (Negative) Urine RBC (0-5) /hpf Urine WBC (0-5) /hpf Ur Squamous Epith Cells (0-4) /hpf Hyaline Casts (0-2) /lpf Urine Mucus (None) /hpf Blood Type O Negative Blood Type Confirm Blood Type Recheck No Previous Record Bld Type Recheck Status CABO Indicated Antibody Screen NEGATIVE Spec Expiration Date 06/08/2021 - 230406/05/21 06/05/21 06/05/21 Range/Units 13:05 13:05 13:51 WBC (3.8-10.6) k/uL RBC (3.80-5.40) m/uL Hgb (11.4-16.0) gm/dL Hct (34.0-46.0) % MCV (80.0-100.0) fL MCH (25.0-35.0) pg MCHC (31.0-37.0) g/dL RDW (11.5-15.5) % Plt Count (150-450) k/uL MPV Neutrophils % % Lymphocytes % % Monocytes % % Eosinophils % % Basophils % % Neutrophils # (1.3-7.7) k/uL Lymphocytes # (1.0-4.8) k/uL Monocytes # (0-1.0) k/uL Eosinophils # (0-0.7) k/uL Basophils # (0-0.2) k/uL PT (9.0-12.0) sec INR (<1.2) APTT (22.0-30.0) sec Sodium 141 (137-145) mmol/L Potassium 4.4 (3.5-5.1) mmol/L Chloride 103 (98-107) mmol/L Carbon Dioxide 28 (22-30) mmol/L Anion Gap 10 mmol/L BUN 15 (7-17) mg/dL Creatinine 0.91 (0.52-1.04) mg/dL Est GFR (CKD-EPI)AfAm 66 (>60 ml/min/1.73 sqM) Est GFR (CKD-EPI)NonAf 57 (>60 ml/min/1.73 sqM) Glucose 129 H (74-99) mg/dL Calcium 9.3 (8.4-10.2) mg/dL Magnesium 1.8 (1.6-2.3) mg/dL Total Bilirubin 0.8 (0.2-1.3) mg/dL AST 24 (14-36) U/L ALT 12 (4-34) U/L Alkaline Phosphatase 108 (38-126) U/L Total Protein 7.6 (6.3-8.2) g/dL Albumin 3.8 (3.5-5.0) g/dL Urine Color Yellow Urine Appearance Clear (Clear) Urine pH 5.0 (5.0-8.0) Ur Specific [place] 1.022 (1.001-1.035) Urine Protein Trace H (Negative) Urine Glucose (UA) Negative (Negative) Urine Ketones Negative (Negative) Urine Blood Trace H (Negative) Urine Nitrite Negative (Negative) Urine Bilirubin Negative (Negative) Urine Urobilinogen <2.0 (<2.0) mg/dL Ur Leukocyte Esterase Trace H (Negative) Urine RBC 2 (0-5) /hpf Urine WBC 3 (0-5) /hpf Ur Squamous Epith Cells 2 (0-4) /hpf Hyaline Casts 3 H (0-2) /lpf Urine Mucus Few H (None) /hpf Blood Type Blood Type Confirm O Negative Blood Type Recheck Bld Type Recheck Status Antibody Screen Spec Expiration Date Disposition Clinical Impression: Dizziness Disposition: HOME SELF-CARE Condition: Fair Instructions (If sedation given, give patient instructions): Dizziness (ED), Fall Prevention for Older Adults (ED) Is patient prescribed a controlled substance at d/c from ED?: No Referrals: Alen Em DO [Primary Care Provider] - 1-2 days
--- NOTE | 2021-06-05 12:57 | XR ---
EXAMINATION TYPE: XR chest 2V DATE OF EXAM: 06/05/2021 COMPARISON: NONE TECHNIQUE: PA and lateral views submitted. HISTORY: Pain FINDINGS: The lungs are clear and there is no pneumothorax, pleural effusion, or focal pneumonia. Cardiac marialuisa ce seen. Heart size normal. Patient rotated with biapical pleural thickening and arthropathy of the s houlders. Diffuse osteopenia. Ectasia of the aorta. Hyperinflation suggests COPD and there is degener ative changes of the spine. IMPRESSION: 1. No definite acute process. Correlate for COPD.
--- NOTE | 2021-06-05 13:01 | XR ---
EXAMINATION TYPE: XR Hip LT and AP Pelvis DATE OF EXAM: 06/05/2021 COMPARISON: NONE HISTORY: Pain TECHNIQUE: A single AP view of the pelvis is obtained. Two views of the left hip are obtained. FINDINGS: There is degenerative change lower lumbar spine. Calcifications are seen which are likely vascular. SI joints symmetric. There is narrowing of the hip joints bilaterally with mild diffuse ost eopenia. No definite acute fracture. IMPRESSION: 1. Arthropathy of the hips. 2. No acute fracture.
[2021-06-05 13:23] LABS: Basophils # (A) 0.1 k/uL (0-0.2); Basophils % (A) 1 %; Eosinophils # (A) 0.5 k/uL (0-0.7); Eosinophils % (A) 6 %; HCT 38.3 % (34.0-46.0); HGB 12.5 gm/dL (11.4-16.0); Lymphocytes # (A) 1.7 k/uL (1.0-4.8); Lymphocytes % (A) 22 %; MCH 29.2 pg (25.0-35.0); MCHC 32.6 g/dL (31.0-37.0); MCV 89.3 fL (80.0-100.0); Mean Platelet Volume 7.3; Monocytes # (A) 0.4 k/uL (0-1.0); Monocytes % (A) 5 %; Neutrophils # (A) 4.7 k/uL (1.3-7.7); Neutrophils % (A) 62 %; Platelet Count 302 k/uL (150-450); RBC 4.28 m/uL (3.80-5.40); RDW 13.3 % (11.5-15.5); WBC 7.6 k/uL (3.8-10.6)
[2021-06-05 13:34] LABS: Albumin 3.8 g/dL (3.5-5.0); Calcium 9.3 mg/dL (8.4-10.2); Magnesium 1.8 mg/dL (1.6-2.3); Potassium 4.4 mmol/L (3.5-5.1); Total Bilirubin 0.8 mg/dL (0.2-1.3); Total Protein 7.6 g/dL (6.3-8.2)
[2021-06-05 13:45] LABS: INR 0.9 (<1.2); Prothrombin Time 10.4 sec (9.0-12.0)
[2021-06-05 13:52] LABS: Partial Thromboplastin Time 21.1 sec (22.0-30.0)
--- NOTE | 2021-06-05 14:13 | CT ---
EXAMINATION TYPE: CT brain cspine wo con DATE OF EXAM: 06/05/2021 COMPARISON: CT dated 06/26/2020 HISTORY: Frequent falls, trauma and pain CT DLP: 85683.4 mGycm Automated exposure control for dose reduction was used. TECHNIQUE: CT scan of the head and cervical spine are performed without contrast. FINDINGS: There is no acute intracranial hemorrhage, mass effect, or midline shift identified. The ventricles and sulci are stable in size. The globes are intact and the visualized sinuses are showi ng inflammatory change similar to prior consistent with pansinusitis. Craniotomy change is stable. Wh ite matter low-attenuation is again seen, there is cortical atrophy, cerebral vascular calcifications are noted Cervical spine is visualized in its entirety from C1 through upper thoracic levels and demonstrates s atisfactory alignment without evidence of acute fracture or dislocation. Prevertebral soft tissue ap pears within normal limits. The C1-C2 articulation is unremarkable. Interstitial changes are present in the upper lobes. Multilevel facet arthropathy again noted, degenerative disc changes, multilevel foraminal encroachment again seen IMPRESSION: 1. There is no acute fracture or dislocation evident in the cervical spine. 2. No acute intracranial hemorrhage, mass effect, or midline shift is seen.
[2021-06-05] MEDS ORDERED: METOCLOPRAMIDE 5 MG/ML 2 ML VIAL IVP STA (14:27)
[2021-06-05] MEDS ORDERED: MECLIZINE 12.5 MG TAB PO STA (14:27)
[2021-06-05 15:14] LABS: Appearance,Urine Clear (Clear); Bilirubin,Urine Negative (Negative); Blood,Urine Trace (Negative); Color,Urine Yellow; Glucose,Urine (UA) Negative (Negative); Hyaline Casts,Urine 3 /lpf (0-2); Ketones,Urine Negative (Negative); Leukocyte Esterase,Urine Trace (Negative); Mucus,Urine Few /hpf; Nitrite,Urine Negative (Negative); Protein,Urine Trace (Negative); RBC,Urine 2 /hpf (0-5); Specific Gravity,Urine 1.022 (1.001-1.035); Squamous Epithelial Cell,Urine 2 /hpf (0-4); Urobilinogen,Urine <2.0 mg/dL (<2.0); WBC,Urine 3 /hpf (0-5)
[2021-06-05 16:15] VITALS: BP 120/78; PULSE 80; RESP 18
== END 2021-06-05 16:00 | disposition home or self-care (01) ==
LOC: EC 10:53
DX: R42 Dizziness and giddiness (principal); Z79.82 Long term (current) use of aspirin; Z95.0 Presence of cardiac pacemaker; Z85.51 Personal history of malignant neoplasm of bladder
CPT/HCPCS: 99284; 96374; 36415; 93005; 86900; 86901; 80053; 83735; 85025; 85610; 85730; 86850; 81001; 73502; 71046; 72125; 70450; J2765

== ENCOUNTER 2021-07-17 12:28 | Inpatient (IN) | payer OTHER, MEDICARE ==
--- NOTE | 2021-07-17 12:57 | ED ---
General Adult HPI - General Chief complaint: Fall Stated complaint: Fall Time Seen by Provider: 07/17/21 12:30 Source: patient, EMS, RN notes reviewed, old records reviewed Mode of arrival: EMS Limitations: no limitations - History of Present Illness Initial comments: This is an 86-year-old female presents emergency Department complaining that she tripped over walker fell onto her left side. Patient complains of left hip pain. Patient states she hit her head on the way down and denies any neck pain. Patient however was given [address] of f[address] on the way and so her history is somewhat unreliable at this time. Patient did not lose consciousness was not days per patient denies any back pain. Patient denies any abdominal pain. Patient denies any upper extremity pain. Patient's only complaint is left hip pain. - Related Data Home Medications Medication Instructions Recorded Confirmed Ammonium Lactate Cream [Lac-Hydrin 1 applic TOPICAL DAILY 09/27/16 07/17/21 12% Cream] Atorvastatin [Lipitor] 20 mg PO HS 09/27/16 07/17/21 Calcium Carbonate 2,000 mg PO DAILY 09/27/16 07/17/21 Diltiazem HCl [Diltiazem ER] 180 mg PO DAILY 09/27/16 07/17/21 FLUoxetine HCL [Sarafem] 40 mg PO DAILY 09/27/16 07/17/21 Pantoprazole Sodium 40 mg PO BID 09/27/16 07/17/21 Propranolol HCl 20 mg PO BID 09/27/16 07/17/21 Cholecalciferol [Vitamin D3 (25 50 mcg PO DAILY 07/17/21 07/17/21 Mcg = 1000 Iu)] Lidocaine 5% Patch [Lidoderm] 1 patch TOPICAL DAILY 07/17/21 07/17/21 Meclizine [Antivert] 12.5 mg PO BID PRN 07/17/21 07/17/21 Allergies Allergy/AdvReac Type Severity Reaction Status Date / Time Fish Containing Products Allergy Unknown Verified 07/17/21 13:56 Iodine and Iodide Containing Allergy Unknown Verified 07/17/21 13:56 Produc Review of Systems ROS Statement: Those systems with pertinent positive or pertinent negative responses have been documented in the HPI. ROS Other: All systems not noted in ROS Statement are negative. Past Medical History Past Medical History: Cancer Additional Past Medical History / Comment(s): brain and bladder CA History of Any Multi-Drug Resistant Organisms: None Reported Past Surgical History: Pacemaker Past Psychological History: No Psychological Hx Reported Smoking Status: Never smoker Past Alcohol Use History: None Reported Past Drug Use History: None Reported General Exam - General Exam Comments Initial Comments: GENERAL: Patient is well-developed and well-nourished. Patient is nontoxic and well- hydrated and is in mild distress. ENT: Neck is soft and supple. No significant lymphadenopathy is noted. Oropharynx is clear. Moist mucous membranes. Neck has full range of motion without eliciting any pain. EYES: The sclera were anicteric and conjunctiva were pink and moist. Extraocular movements were intact and pupils were equal round and reactive to light. Eyelids were unremarkable. PULMONARY: Unlabored respirations. Good breath sounds bilaterally. No audible rales rhonchi or wheezing was noted. CARDIOVASCULAR: There is a regular rate and rhythm without any murmurs gallops or rubs. ABDOMEN: Soft and nontender with normal bowel sounds. SKIN: Skin is clear with no lesions or rashes and otherwise unremarkable. NEUROLOGIC: Patient is alert and oriented x3. Cranial nerves II through XII are grossly intact. Motor and sensory are also intact. Normal speech, volume and content. Symmetrical smile. MUSCULOSKELETAL: Patient has left lateral hip pain especially with flexion and external rotation. LYMPHATICS: No significant lymphadenopathy is noted PSYCHIATRIC: Normal psychiatric evaluation. Limitations: no limitations Course Vital Signs 07/17/21 07/17/21 12:31 12:36 Temperature 98.6 F Pulse Rate 61 Respiratory 18 Rate Blood Pressure 174/91 O2 Sat by Pulse 88 L 97 Oximetry Medical Decision Making - Medical Decision Making Patient's CT of the brain and C-spine showed no acute normalities. Patient's x-ray of the hip shows a nondisplaced intertrochanteric hip fracture on the left. I spoke with Dr. Cruz he agreed to admit the patient admitted the patient I wrote admitting orders. EKG shows paced rhythm at 81 bpm NM interval is 177 QRS is 174 QT interval 491 QTC is 528. Patient's EKG shows no ST segment elevation or depression. Patient has frequent PVCs. Disposition Clinical Impression: Fall, Intertrochanteric fracture of left hip Disposition: ADMITTED IP TO THIS [facility] Time of Disposition: 13:58
--- NOTE | 2021-07-17 13:19 | CT ---
EXAMINATION TYPE: CT brain cspine wo con DATE OF EXAM: 07/17/2021 COMPARISON: CT brain and cervical spine June 05, 2021 HISTORY: Trauma Fall injury with headache and neck pain. CT DLP: 1409.7 mGycm. Automated Exposure Control for Dose Reduction was Utilized. TECHNIQUE: CT scan of the head and cervical spine are performed without contrast. FINDINGS: There is no acute intracranial hemorrhage or midline shift identified. Mild to moderate v entricular and sulcal prominence with septum pellucidum vergae. Moderate to severe low attenuation i n the deep and periventricular white matter redemonstrated. The globes are intact and the visualized sinuses are clear. Persistent thickening of the calvarium along the right parietal level superiorly. Visualized paranasal sinuses redemonstrate opacification throughout the ethmoid sinuses bilaterally a nd mucosal thickening and dependent fluid in the left maxillary sinus. Globes are intact bilaterally. Osseous structures are demineralized. Cervical spine is visualized in its entirety from C1 through up per thoracic levels and demonstrates satisfactory alignment without evidence of acute fracture or dis location. Prevertebral soft tissue appears within normal limits. The C1-C2 articulation is within n ormal limits on the coronal images. Vertebral body heights are maintained. Mild to moderate disc spa ce narrowing C6-C7 level. Posterior disc herniation C4-C5 level effaces the anterior thecal sac. Spin al canal grossly preserved. Review of axial images redemonstrate multilevel uncovertebral and facet d egenerative changes causing multilevel bilateral neural foraminal narrowing. There is partial visuali zation of left sided pacemaker leads. There is 1.0 cm hypodense right thyroid nodule anteriorly coron al image 19. Consider thyroid ultrasound follow-up if this is not known finding. Lung apices show no pneumothorax. IMPRESSION: 1. There is no acute fracture or dislocation evident in the cervical spine. 2. No acute intracranial hemorrhage or midline shift is seen. [id number] diffuse cerebral atrop hy and moderate to advanced chronic small vessel ischemic changes redemonstrated. Acute on chronic pa ranasal sinus disease redemonstrated.
--- NOTE | 2021-07-17 13:51 | XR ---
EXAMINATION TYPE: XR Hip LT and AP Pelvis DATE OF EXAM: 07/17/2021 COMPARISON: Prior pelvic and left hip x-ray June 05, 2021 HISTORY: Pain from fall injury. TECHNIQUE: A single AP view of the pelvis is obtained. Two views of the left hip are obtained. FINDINGS: Seen best on frog leg image there is acute nondisplaced intertrochanteric fracture through the left proximal femur. No hip joint dislocation. Mild to moderate joint space loss redemonstrated. Remainder of pelvis shows no additional acute displaced fracture. Pubic symphysis remains intact. He aling fracture of the left inferior pelvic ramus is noted with new callus formation. Scattered bilate ral pelvic phleboliths including larger phleboliths left lower abdomen just above the sacrum. IMPRESSION: There is acute nondisplaced intertrochanteric fracture of the left proximal femur.
[2021-07-17] MEDS ORDERED: SODIUM CHLORIDE 0.9% 1,000 ML IV ONE (14:09)
--- NOTE | 2021-07-17 14:15 | XR ---
EXAMINATION TYPE: XR chest 1V DATE OF EXAM: 07/17/2021 COMPARISON: Chest x-ray 06/05/2021 HISTORY: Difficulty breathing TECHNIQUE: Single frontal view of the chest is obtained. FINDINGS: There is no focal air space opacity, pleural effusion, or pneumothorax seen. Patient is ro tated. There is a generator in left pectoral region, leads are present in the right atrium and ventri josue. Cardiac mediastinal silhouette is stable accounting for differences in technique. There are over lying artifacts. Suspect eventration of the left hemidiaphragm. The osseous structures are intact. IMPRESSION: Rotated exam. No acute abnormalities evident, follow-up as indicated
[2021-07-17 14:55] LABS: Basophils # (A) 0.1 k/uL (0-0.2); Basophils % (A) 0 %; Eosinophils # (A) 0.4 k/uL (0-0.7); Eosinophils % (A) 2 %; HCT 36.7 % (34.0-46.0); HGB 11.6 gm/dL (11.4-16.0); Lymphocytes # (A) 1.3 k/uL (1.0-4.8); Lymphocytes % (A) 8 %; MCH 28.4 pg (25.0-35.0); MCHC 31.7 g/dL (31.0-37.0); MCV 89.7 fL (80.0-100.0); Mean Platelet Volume 7.7; Monocytes # (A) 0.6 k/uL (0-1.0); Monocytes % (A) 4 %; Neutrophils # (A) 13.3 k/uL (1.3-7.7); Neutrophils % (A) 85 %; Platelet Count 271 k/uL (150-450); RBC 4.09 m/uL (3.80-5.40); WBC 15.7 k/uL (3.8-10.6)
[2021-07-17 15:14] LABS: Prothrombin Time 10.7 sec (9.0-12.0)
[2021-07-17 15:16] LABS: Albumin 3.7 g/dL (3.5-5.0); Calcium 9.1 mg/dL (8.4-10.2); Total Bilirubin 0.5 mg/dL (0.2-1.3); Total Protein 7.1 g/dL (6.3-8.2)
[2021-07-17 15:56] LABS: Partial Thromboplastin Time 21.4 sec (22.0-30.0)
--- NOTE | 2021-07-17 16:55 | P.HPOR ---
History of Present Illness H&P Date: 07/17/21 This is an 86-year-old female who is admitted after a fall at home. Patient is seen and evaluated at bedside today in the emergency room. Patient states that she tripped and fell and hit her head. Patient's family is present at bedside today and states that the patient has difficulty ambulating and has been working with in home physical therapy for upper body strength and ambulation. Patient's past medical history significant for brain and bladder cancer. Patient has a pacemaker. Patient denies any fever/chills, numbness, weakness, tingling, abdominal pain, shortness of breath or chest pain. Review of Systems See HPI. Past Medical History Past Medical History: Cancer Additional Past Medical History / Comment(s): brain and bladder CA History of Any Multi-Drug Resistant Organisms: None Reported Past Surgical History: Pacemaker Past Psychological History: No Psychological Hx Reported Smoking Status: Never smoker Past Alcohol Use History: None Reported Past Drug Use History: None Reported Medications and Allergies Home Medications Medication Instructions Recorded Confirmed Type Ammonium Lactate Cream [Lac-Hydrin 1 applic TOPICAL DAILY 09/27/16 07/17/21 His tory 12% Cream] Atorvastatin [Lipitor] 20 mg PO HS 09/27/16 07/17/21 History Calcium Carbonate 2,000 mg PO DAILY 09/27/16 07/17/21 History Diltiazem HCl [Diltiazem ER] 180 mg PO DAILY 09/27/16 07/17/21 History FLUoxetine HCL [Sarafem] 40 mg PO DAILY 09/27/16 07/17/21 History Pantoprazole Sodium 40 mg PO BID 09/27/16 07/17/21 History Propranolol HCl 20 mg PO BID 09/27/16 07/17/21 History Cholecalciferol [Vitamin D3 (25 50 mcg PO DAILY 07/17/21 07/17/21 History Mcg = 1000 Iu)] Lidocaine 5% Patch [Lidoderm] 1 patch TOPICAL DAILY 07/17/21 07/17/21 History Meclizine [Antivert] 12.5 mg PO BID PRN 07/17/21 07/17/21 History Allergies Allergy/AdvReac Type Severity Reaction Status Date / Time Fish Containing Products Allergy Unknown Verified 07/17/21 13:56 Iodine and Iodide Containing Allergy Unknown Verified 07/17/21 13:56 Produc Physical Examination On exam patient is resting comfortably in bed in no acute distress. Patient is alert and oriented. Head is normocephalic and atraumatic. Patient freely moves the head and neck without pain or difficulty. On exam of the left lower extremity there is mild shortening and external rotation. There is minimal soft tissue swelling. Patient has limited range of motion secondary to pain. Calf is soft and nontender to palpation. Sensation intact. Dorsalis pedis pulse is 2+. Neurovascular status and circulatory status are intact. Exams of bilateral upper extremities and the right lower extremity are within normal limits. Results X-rays of the left hip and pelvis reveal an intertrochanteric fracture of the left femur. - Labs Labs: Abnormal Lab Results - Last 24 Hours (Table) 07/17/21 07/17/21 07/17/21 Range/Units 13:53 13:53 13:53 WBC 15.7 H (3.8-10.6) k/uL Neutrophils # 13.3 H (1.3-7.7) k/uL APTT 21.4 L (22.0-30.0) sec Glucose 182 H (74-99) mg/dL Alkaline Phosphatase 161 H (38-126) U/L H & H 07/17/21 Range/Units 13:53 Hgb 11.6 (11.4-16.0) gm/dL Hct 36.7 (34.0-46.0) % Coagulation 07/17/21 Range/Units 13:53 INR 1.0 (<1.2) Result Diagrams: 07/17/21 13:53 07/17/21 13:53 Assessment and Plan (1) Fall Current Visit: Yes Status: Acute Code(s): W19.XXXA - UNSPECIFIED FALL, INITIAL ENCOUNTER SNOMED Code(s): 5988579 (2) Intertrochanteric fracture of left hip Current Visit: Yes Status: Acute Code(s): S72.142A - DISPLACED INTERTROCHANTERIC FRACTURE OF LEFT FEMUR, INIT SNOMED Code(s): 940059099 Plan: 1. Patient is to be NPO after midnight. 2. Continue pain control and bed rest. 3. Appreciate input from medicine. 4. X-rays are reviewed and reveal an intertrochanteric fracture of the left femur. Options are discussed with the patient and family at bedside today. Planning for closed reduction and intramedullary rodding of the left femur on 07/18/2021 pending medical clearance and patient consent.
[2021-07-17] MEDS: HYDROmorphone 0.5 MG/0.5 ML SYRINGE IVP PRN ×2 (17:00→20:56)
[2021-07-17] MEDS ORDERED: ONDANSETRON 4 MG/2 ML VIAL IVP PRN (17:19)
[2021-07-17] MEDS ORDERED: HYDROcodone/APAP 5-325MG 1 EACH TAB PO PRN (18:18)
[2021-07-17] MEDS ORDERED: bisacodyL 5 MG TABLET.DR PO PRN (18:18)
[2021-07-17] MEDS ORDERED: ACETAMINOPHEN TAB 325 MG TAB PO PRN (18:18)
[2021-07-17] MEDS ORDERED: MELATONIN 3 MG TABLET PO PRN (18:18)
[2021-07-17] MEDS ORDERED: MORPHINE SULFATE 2 MG/ML SYRINGE IVP PRN (18:18)
[2021-07-17] MEDS ORDERED: NALOXONE 0.4 MG/ML 1 ML VIAL IV PRN (18:18)
--- NOTE | 2021-07-17 18:23 | P.CONS ---
History of Present Illness - Reason for Consult Consult date: 07/17/21 pre-op Requesting physician: Alen Cruz - Chief Complaint left hip pain - History of Present Illness Patient is an 86-year-old female with known hypertension, dy slipidemia, status post permanent pacemaker, benign brain tumor status post resection and bladder cancer who presented after a fall at home. In the ER she underwent an extensive evaluation. She was found to have an intertrochanteric left femur fracture and plan is for closed reduction and intramedullary lisa of left femur 07/18/21. We're asked to consult for preop clearance. Patient seen and examined at bedside. She complains of pain in her left hip. She reports that she was walking and then tripped over the wheel of her walker was unable to get up and called for her daughter. She denies any lightheadedness, dizziness, chest pain, or shortness of breath associated with the event. She did not have a syncopal event. In her typical state of health but has been getting physical therapy due to multiple falls in the past. She does her own dressing, bathing, self-care. She does all of her own cooking. She has some help with cleaning because other items by herself. She uses a cane or walker. She has not had any recent hospitalizations. Pertinent positives and negatives as discussed in HPI, a complete review of systems was performed and all other systems are negative. General: non toxic, no distress, appears younger than stated age Derm: warm, dry Head: atraumatic, normocephalic, symmetric Eyes: EOMI, no lid lag, anicteric sclera, pupils equal round reactive to light ENT: Nose and ears atraumatic, no thrush, no pharyngeal erythema Neck: No thyromegaly, no cervical lymphadenopathy, trachea midline, supple Mouth: no lip lesion, mucus membranes moist Cardiovascular: S1S2 reg, no murmur, positive posterior tibial pulse bilateral, no edema, capillary refill less than 2 seconds Lungs: clear to ascultation bilateral, no ronchi, no rales, no wheeze, no accessory muscle use Abdominal: soft, nontender to palpation, no guarding, no appreciable organomegaly, normal bowel sounds Ext: no gross muscle atrophy, muscle strength muscle strength 4 out of 5 in bilateral upper extremities, not tested in bilateral lower cavity secondary to fracture no contractures Neuro: CN II-XII grossly intact, poor finger to nose right, light touch intact in all 4 extremities Psych: Alert, oriented, appropriate affect Assessment/plan: Left femur fracture Surgical risk stratification using NSQIP score - Jazmyn is at below average risk for most complications compaired to like age patients, including cardiac, , VTE, and is at average risk for UTI and SNF on discharge - Medically optimized for discharge, no further testing need at this point in time - pain control - DVT prophylaxis per ortho Hypertension - follow BP - cardizem, propranolol 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 Do not hesitate to contact us with questions. Someone can be reached from the [facility] [place] [facility] [place] hospital[place] group all hours of the day at [phone] or via [employer]. Past Medical History Past Medical History: Cancer, Hyperlipidemia, Hypertension, Myocardial Infarction (MD) Additional Past Medical History / Comment(s): brain CA, bladder CA, heart block History of Any Multi-Drug Resistant Organisms: None Reported Past Surgical History: Back Surgery, Hysterectomy, Pacemaker Additional Past Surgical History / Comment(s): ablation Past Anesthesia/Blood Transfusion Reactions: No Reported Reaction Type of Cardiac Device: Unknown Device Placement Date:: 2007 Past Psychological History: No Psychological Hx Reported Smoking Status: Never smoker Past Alcohol Use History: None Reported Past Drug Use History: None Reported - Past Family History Mother Family Medical History: Myocardial Infarction (MD) Father Family Medical History: Cancer Medications and Allergies Home Medications Medication Instructions Recorded Confirmed Type Ammonium Lactate Cream [Lac-Hydrin 1 applic TOPICAL DAILY 09/27/16 07/17/21 History 12% Cream] Atorvastatin [Lipitor] 20 mg PO HS 09/27/16 07/17/21 History Calcium Carbonate 2,000 mg PO DAILY 09/27/16 07/17/21 History Diltiazem HCl [Diltiazem ER] 180 mg PO DAILY 09/27/16 07/17/21 History FLUoxetine HCL [Sarafem] 40 mg PO DAILY 09/27/16 07/17/21 History Pantoprazole Sodium 40 mg PO BID 09/27/16 07/17/21 History Propranolol HCl 20 mg PO BID 09/27/16 07/17/21 History Cholecalciferol [Vitamin D3 (25 50 mcg PO DAILY 07/17/21 07/17/21 History Mcg = 1000 Iu)] Lidocaine 5% Patch [Lidoderm] 1 patch TOPICAL DAILY 07/17/21 07/17/21 History Meclizine [Antivert] 12.5 mg PO BID PRN 07/17/21 07/17/21 History Allergies Allergy/AdvReac Type Severity Reaction Status Date / Time Fish Containing Products Allergy Unknown Verified 07/17/21 13:56 Iodine and Iodide Containing Allergy Unknown Verified 07/17/21 13:56 Produc Physical Exam Osteopathic Statement: *. No significant issues noted on an osteopathic structural exam other than those noted in the History and Physical/Consult. Vitals: Vital Signs Temp Pulse Resp BP Pulse Ox 07/17/21 16:58 60 18 142/77 96 07/17/21 14:36 97.7 F 63 16 135/78 96 07/17/21 12:36 97 07/17/21 12:31 98.6 F 61 18 174/91 88 L Intake and Output 07/17/21 07/17/21 07/17/21 06:59 14:59 22:59 Output Total 0 Balance 0 Output: Urine 0 Other: Weight 70.307 kg 70.307 kg Results CBC & Chem 7: 07/17/21 13:53 07/17/21 13:53 Labs: Abnormal Lab Results - Last 24 Hours (Table) 07/17/21 07/17/21 07/17/21 Range/Units 13:53 13:53 13:53 WBC 15.7 H (3.8-10.6) k/uL Neutrophils # 13.3 H (1.3-7.7) k/uL APTT 21.4 L (22.0-30.0) sec Glucose 182 H (74-99) mg/dL Alkaline Phosphatase 161 H (38-126) U/L
[2021-07-17] MEDS: SODIUM CHLORIDE 0.9% 1,000 ML IV SCH (20:55)
[2021-07-17] MEDS: ATORVASTATIN 20 MG TAB PO SCH (20:56)
[2021-07-17] MEDS: PANTOPRAZOLE 40 MG TABLET PO SCH (20:56)
[2021-07-17] MEDS: PROPRANOLOL 20 MG TAB PO SCH (21:49)
[2021-07-18 04:54] LABS: HCT 35.4 % (34.0-46.0); HGB 11.3 gm/dL (11.4-16.0); MCH 28.8 pg (25.0-35.0); MCHC 31.9 g/dL (31.0-37.0); MCV 90.4 fL (80.0-100.0); Mean Platelet Volume 7.9; Platelet Count 234 k/uL (150-450); RBC 3.92 m/uL (3.80-5.40); RDW 13.2 % (11.5-15.5); WBC 10.2 k/uL (3.8-10.6)
[2021-07-18 05:25] LABS: African American GFR (CKD) 79 (>60 ml/min/1.73 sqM); Anion Gap 9 mmol/L; Blood Urea Nitrogen 13 mg/dL (7-17); Calcium 8.7 mg/dL (8.4-10.2); Carbon Dioxide 26 mmol/L (22-30); Chloride 100 mmol/L (98-107); Glucose 126 mg/dL (74-99); Magnesium 1.6 mg/dL (1.6-2.3); Non-African American GFR(CKD) 69 (>60 ml/min/1.73 sqM); Potassium 3.8 mmol/L (3.5-5.1); Sodium 135 mmol/L (137-145)
[2021-07-18] MEDS ORDERED: LACTATED RINGERS 1,000 ML IV ONE (09:11)
[2021-07-18] MEDS ORDERED: SODIUM CHLORIDE 0.9% 100 ML with ceFAZolin 1 GM IV ONE ×2 (09:20)
[2021-07-18] MEDS ORDERED: NALOXONE 0.4 MG/ML 1 ML VIAL IV PRN (10:09)
[2021-07-18] MEDS ORDERED: HYDROmorphone 0.5 MG/0.5 ML SYRINGE IVP PRN ×3 (10:09)
[2021-07-18] MEDS ORDERED: MAGNESIUM HYDROXIDE 2,400 MG/10 ML CUP PO PRN (10:09)
--- NOTE | 2021-07-18 10:17 | P.OP ---
Date of Procedure: 07/18/21 Preoperative Diagnosis: Intertrochanteric fracture left hip Postoperative Diagnosis: Intertrochanteric fracture left hip Procedure(s) Performed: Closed intramedullary nailing left hip Implants: [employer] Intertan nail 125, 11.5 mm x 18 cm. [employer] Intertan integrated-interlocking lag screw, 95 mm lag screw, 90 mm compression screw. [employer] L-P screw, 5.0 mm x 30 mm. Anesthesia: spinal Surgeon: Alen Cruz Estimated Blood Loss (ml): 100 Pathology: none sent Condition: stable Disposition: PACU Indications for Procedure: This is an 86-year-old female who sustained a ground-level fall at home. X-rays demonstrate an intertrochanteric fracture of her left hip. After discussing the surgical and nonsurgical treatment options with her and her family at length, I recommended a close intramedullary nailing of her left hip. Informed consent was obtained. Operative Findings: The operative findings are consistent with a minimally displaced intertrochanter ic fracture of the left hip Description of Procedure: The patient was seen in the preoperative area, consent was reviewed, and the operative site was marked with a skin marker. The surgical procedure was discussed at length with both the patient and the family at the bedside. All questions were answered to the best of my ability. The patient was brought to the operating room and placed on the fracture table. Anesthesia was administered by the anesthesia department. 2 g of Ancef were administered intravenously. The patient was placed supine on the fracture table with the fractured extremity in traction boot. The other extremity was placed in a well leg blanchard and the bony prominences were well padded. A universal timeout was then performed which confirmed the patient's name, surgical site, ALLERGIES, and consent. Fracture reduction was performed with a traction and abduction maneuver which was confirmed with fluoroscopy, both AP and lateral views.. After reduction was performed, the extremity was then prepped with ChloraPrep solution and draped in the usual sterile fashion. Utilizing fluoroscopy to identify the tip of the greater trochanter, a 3 cm longitudinal incision was made just proximal to the greater trochanter. Incision was carried through the fascia to the tip of the greater trochanter. Utilizing a curved awl, the entry point was created at the tip of the greater trochanter and centralized in the AP and lateral planes. These locations were confirmed by fluoroscopy. A guidewire was then inserted down the medullary canal. Sequentially reaming of the femur was performed to 13 mm distally and 17 mm proximally with the channel reamer. After reaming, appropriate size nail was inserted over the guidewire. The nail was inserted to the appropriate depth and the guidewire was removed. Placement of the lisa was confirmed with both AP and lateral fluoroscopic views. The lag screw drill sleeve was placed in the jig and a small skin incision was made on the lateral aspect of the leg and the lag screw drill sleeve was locked into the guide. The 3.2 mm guide pin sleeve was inserted through the lag screw drill sleeve down to bone. A 3.2 mm distally threaded guidewire was inserted through the guide pin sleeve. The guidewire was inserted in the desired position in the femoral head, both anterior and posterior. The lag screw length cage was inserted over the guidepin to the back of the lag screw drill sleeve. Lag screw length was then measured from the cage. Next, the 7.0 mm compression screw starter drill was inserted in the lag screw drill sleeve beneath the guidepin. The compression screw starter drill was advanced under power until it abutted the back and of the lag screw drill sleeve. The 7.0 mm compression screw drill was inserted through the lag screw drill sleeve into the hole created by the compression screw starter drill. This was advanced under fluoroscopy to a depth 5 mm less and the measurement taken for the guidepin. The compression screw drill was removed and the antirotation bar was inserted into the same hole. The 3.2 mm guide pin sleeve was then removed from the drill guide. The lag screw drill was then inserted to a depth that was measured by the lag screw gauge. This was done under fluoroscopy. The lag screw was inserted over the guidewire to the appropriate depth using flu oroscopy. Traction was then released. The antirotation bar was then removed and the compression screw was advanced through the lag screw drill sleeve beneath the lag screw. This was advanced to the appropriate compression was achieved. The proximal drill guide was then removed and the distal drill guide was then inserted in the jig. Skin incision was made down to bone and the distal drill guide was then placed. Distal hole was then drilled with a 4.0 mm drill and measured to the appropriate depth. Distal screw was then placed. The entire assembly was then removed and final fluoroscopic x-rays were obtained. The wounds were then irrigated copiously with saline solution. Fascia was closed with 0-Vicryl. Subcutaneous tissues were closed with 2-0 Vicryl and the skin was closed with ashley. Sterile dressings were applied. The patient was transported to the recovery room in stable condition.
--- NOTE | 2021-07-18 10:38 | XR ---
EXAMINATION TYPE: XR Hip Limited LT, FL guidance operating room DATE OF EXAM: 07/18/2021 10:18 AM INDICATION: Patient age:Female; 86 years old; Reason for study: closed reduction pinning left hip; PHH. COMPARISON: None. Intraoperative fluoroscopic services were provided for internal fixation of a left femur. Total fluor oscopy time 46.5 seconds with a total of 3 submitted images to PACS. Please see the operative note fo r further details.
[2021-07-18 12:58] LABS: Basophils # (A) 0.1 k/uL (0-0.2); Basophils % (A) 0 %; Eosinophils # (A) 0.5 k/uL (0-0.7); Eosinophils % (A) 3 %; HCT 35.6 % (34.0-46.0); HGB 11.2 gm/dL (11.4-16.0); Lymphocytes # (A) 1.1 k/uL (1.0-4.8); Lymphocytes % (A) 7 %; MCH 28.6 pg (25.0-35.0); MCHC 31.6 g/dL (31.0-37.0); MCV 90.3 fL (80.0-100.0); Mean Platelet Volume 7.6; Monocytes # (A) 0.5 k/uL (0-1.0); Monocytes % (A) 4 %; Neutrophils # (A) 12.3 k/uL (1.3-7.7); Neutrophils % (A) 85 %; Platelet Count 231 k/uL (150-450); RBC 3.93 m/uL (3.80-5.40); RDW 13.2 % (11.5-15.5); WBC 14.5 k/uL (3.8-10.6)
[2021-07-18] MEDS: DILTIAZEM CD 180 MG CAP.ER.24H PO SCH (14:06)
[2021-07-18] MEDS: SODIUM CHLORIDE 0.9% 1,000 ML IV SCH ×4 (14:06→21:35)
[2021-07-18] MEDS: FLUoxetine HCL 20 MG CAP PO SCH (14:06)
[2021-07-18] MEDS: PANTOPRAZOLE 40 MG TABLET PO SCH ×2 (14:06→19:31)
[2021-07-18] MEDS: CHOLECALCIFEROL 25 MCG (1000 IU) TABLET PO SCH (14:06)
[2021-07-18] MEDS: CALCIUM CARBONATE 500 MG CHEWABLE PO SCH (14:06)
[2021-07-18] MEDS: PROPRANOLOL 20 MG TAB PO SCH ×2 (14:07→19:31)
[2021-07-18] MEDS: HYDROmorphone 0.5 MG/0.5 ML SYRINGE IVP PRN (14:08)
--- NOTE | 2021-07-18 14:32 | P.PN ---
Subjective Progress Note Date: 07/18/21 (delayed charting seen at 1055) Principal diagnosis: left hip pain Patient is an 86-year-old female with known hypertension, dyslipidemia, status post permanent pacemaker, benign brain tumor status post resection and bladder cancer who presented after a fall at home. In the ER she underwent an extensive evaluation. She was found to have an intertrochanteric left femur fracture and plan is for closed reduction and intramedullary lisa of left femur 07/18/21. Patient seen and examined at bedside. SHe juet returned form OR and is sleepy. She has some post op nausea and foggy feeling, no chest pain, sob. Daughter at bedside and all questions answered. General: non toxic, no distress, appears at stated age Derm: warm, dry Head: atraumatic, normocephalic, symmetric Eyes: EOMI, no lid lag, anicteric sclera Mouth: no lip lesion, mucus membranes moist Cardiovascular: S1S2 reg, no murmur, positive posterior tibial pulse bilateral, Lungs: CTA bilateral, no rhonchi, no rales , no accessory muscle use Ext: no gross muscle atrophy, no edema, no contractures Neuro: CN II-XI grossly intact, no focal neuro deficits Psych: Lethargic, oriented, appropriate affect Assessmnet/Plan: Left femur fracture - mangement per ortho - pain control - DVT prophylaxis per ortho Hypertension - follow BP - cardizem, propranolol 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 Do not hesitate to contact us with questions. Someone can be reached from the [facility] hospitalist group all hours of the day at [phone] or via perfect serve. Objective - Vital Signs Vital signs: Vital Signs Temp 97.8 F 07/18/21 11:02 Pulse 61 07/18/21 12:51 Resp 17 07/18/21 11:02 BP 177/84 07/18/21 12:51 Pulse Ox 94 L 07/18/21 12:51 FiO2 Intake & Output 07/17/21 07/18/21 07/18/21 18:59 06:59 18:59 Intake Total 750 Output Total 0 500 100 Balance 0 -500 650 Weight 70.307 kg Intake: IV 750 Output: Urine 0 500 Estimated Blood Loss 100 Other: Voiding Method External Catheter External Catheter - Labs CBC & Chem 7: 07/18/21 12:03 07/18/21 04:31 Labs: Abnormal Lab Results - Last 24 Hours (Table) 07/17/21 07/17/21 07/17/21 Range/Units 13:53 13:53 13:53 WBC 15.7 H (3.8-10.6) k/uL Hgb (11.4-16.0) gm/dL Neutrophils # 13.3 H (1.3-7.7) k/uL APTT 21.4 L (22.0-30.0) sec Sodium (137-145) mmol/L Glucose 182 H (74-99) mg/dL Alkaline Phosphatase 161 H (38-126) U/L 07/18/21 07/18/21 07/18/21 Range/Units 04:31 04:31 12:03 WBC 14.5 H (3.8-10.6) k/uL Hgb 11.3 L 11.2 L (11.4-16.0) gm/dL Neutrophils # 12.3 H (1.3-7.7) k/uL APTT (22.0-30.0) sec Sodium 135 L (137-145) mmol/L Glucose 126 H (74-99) mg/dL Alkaline Phosphatase (38-126) U/L
[2021-07-18] MEDS: SENNOSIDES-DOCUSATE SODIUM 1 EACH TAB PO SCH (19:31)
[2021-07-18] MEDS: ATORVASTATIN 20 MG TAB PO SCH (19:31)
[2021-07-19 06:43] LABS: HCT 32.9 % (34.0-46.0); HGB 10.9 gm/dL (11.4-16.0); MCH 29.3 pg (25.0-35.0); MCV 88.9 fL (80.0-100.0); Mean Platelet Volume 7.6; Platelet Count 217 k/uL (150-450); RDW 13.7 % (11.5-15.5); WBC 10.5 k/uL (3.8-10.6)
[2021-07-19 06:55] LABS: African American GFR (CKD) 72 (>60 ml/min/1.73 sqM); Anion Gap 5 mmol/L; Blood Urea Nitrogen 15 mg/dL (7-17); Calcium 8.3 mg/dL (8.4-10.2); Carbon Dioxide 28 mmol/L (22-30); Chloride 98 mmol/L (98-107); Glucose 131 mg/dL (74-99); Non-African American GFR(CKD) 63 (>60 ml/min/1.73 sqM); Potassium 3.7 mmol/L (3.5-5.1); Sodium 131 mmol/L (137-145)
[2021-07-19] MEDS: CHOLECALCIFEROL 25 MCG (1000 IU) TABLET PO SCH (08:35)
[2021-07-19] MEDS: PANTOPRAZOLE 40 MG TABLET PO SCH ×2 (08:35→20:48)
[2021-07-19] MEDS: FLUoxetine HCL 20 MG CAP PO SCH (08:35)
[2021-07-19] MEDS: CALCIUM CARBONATE 500 MG CHEWABLE PO SCH (08:35)
[2021-07-19] MEDS: DILTIAZEM CD 180 MG CAP.ER.24H PO SCH (08:36)
[2021-07-19] MEDS: PROPRANOLOL 20 MG TAB PO SCH ×2 (08:36→20:48)
[2021-07-19] MEDS: SODIUM CHLORIDE 0.9% 1,000 ML IV SCH (08:41)
[2021-07-19] MEDS ORDERED: KETOROLAC 15 MG/ML 1 ML VIAL IVP PRN (10:05)
[2021-07-19] MEDS ORDERED: ONDANSETRON 4 MG TAB PO PRN (10:07)
--- NOTE | 2021-07-19 10:09 | P.PN ---
Subjective Progress Note Date: 07/19/21 Principal diagnosis: Intertrochanteric fracture left hip. Status post close reduction with insertion of intertrochanteric fracture left hip. This is a pleasant 86-year-old female who is status post close reduction and insertion of intertrochanteric nail left hip. Today is postoperative day #1. The patient had some confusion last evening and is still confused this morning. She pulled her own wills out last night. She has some urinary retention after removing her own catheter. Vital signs are stable. Objective - Vital Signs Vital signs: Vital Signs Temp 99.7 F H 07/19/21 08:00 Pulse 74 07/19/21 08:00 Resp 16 07/19/21 08:00 BP 153/83 07/19/21 08:00 Pulse Ox 96 07/19/21 08:00 FiO2 Intake & Output 07/18/21 07/19/21 07/19/21 18:59 06:59 18:59 Intake Total 750 Output Total 1200 300 Balance -450 -300 Intake: IV 750 Output: Urine 1100 300 Uretheral (Wills) 550 Estimated Blood Loss 100 Other: Voiding Method External Catheter Indwelling Catheter - Exam This is a pleasantly confused 86-year-old female in no acute distress. She is alert but disoriented. Exam of the left hip reveals that her dressing is clean, dry and intact. She has full foot and ankle motion without difficulty or pain. Neurovascular status to the left lower extremity is intact. - Labs CBC & Chem 7: 07/19/21 06:22 07/19/21 06:22 Labs: Abnormal Lab Results - Last 24 Hours (Table) 07/18/21 07/19/21 07/19/21 Range/Units 12:03 06:22 06:22 WBC 14.5 H (3.8-10.6) k/uL RBC 3.70 L (3.80-5.40) m/uL Hgb 11.2 L 10.9 L (11.4-16.0) gm/dL Hct 32.9 L (34.0-46.0) % Neutrophils # 12.3 H (1.3-7.7) k/uL Sodium 131 L (137-145) mmol/L Glucose 131 H (74-99) mg/dL Calcium 8.3 L (8.4-10.2) mg/dL Assessment and Plan (1) Status post hip surgery Current Visit: Yes Status: Acute Code(s): Z98.890 - OTHER SPECIFIED POSTPROCEDURAL STATES SNOMED Code(s): 805428630 (2) Fall Current Visit: Yes Status: Acute Code(s): W19.XXXA - UNSPECIFIED FALL, INITIAL ENCOUNTER SNOMED Code(s): 2530910 (3) Intertrochanteric fracture of left hip Current Visit: Yes Status: Acute Code(s): S72.142A - DISPLACED INTERTROCHANTERIC FRACTURE OF LEFT FEMUR, INIT SNOMED Code(s): 182099929 Plan: The clinical findings are discussed with the patient and nursing staff. Continue current care. Begin physical therapy.
[2021-07-19] MEDS ORDERED: SODIUM CHLORIDE 0.9% 1,000 ML IV SCH (10:15)
--- NOTE | 2021-07-19 11:28 | P.PN ---
Subjective Progress Note Date: 07/19/21 Principal diagnosis: left hip pain Patient is an 86-year-old female with known hypertension, dyslipidemia, status post permanent pacemaker, benign brain tumor status post resection and bladder cancer who presented after a fall at home. In the ER she underwent an extensive evaluation. She was found to have an intertrochanteric left femur fracture and plan is for closed reduction and intramedullary lisa of left femur 07/18/21. She was agitated overnight on 07/18 and removed 2 IVS and her wills. Patient seen and examined at bedside. Very confused last night. Pain is better, having some nuasea, we discussed that I recommend her IV to be reinserted as she has not ate or drank much and had little urine output overnight. General: non toxic, no distress, appears at stated age Derm: warm, dry Head: atraumatic, normocephalic, symmetric Eyes: EOMI, no lid lag, anicteric sclera Mouth: no lip lesion, mucus membranes moist Cardiovascular: S1S2 reg, no murmur, positive posterior tibial pulse bilateral, Lungs: CTA bilateral, no rhonchi, no rales , no accessory muscle use Ext: no gross muscle atrophy, no edema, no contractures Neuro: CN II-XI grossly intact, no focal neuro deficits Psych: Lethargic, oriented, appropriate affect Assessmnet/Plan: Left femur fracture - management per ortho - pain control - DVT prophylaxis per ortho Hypertension - follow BP - cardizem, propranolol Acute metabolic encephalopathy - tylenol - dilaudid discontinue - monitor for rentention - pt refusing to have IV restarted, encourage oral fluids 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 Do not hesitate to contact us with questions. Someone can be reached from the [facility] hospitalist group all hours of the day at [phone] or via perfect serve. Objective - Vital Signs Vital signs: Vital Signs Temp 99.7 F H 07/19/21 08:00 Pulse 74 07/19/21 08:00 Resp 16 07/19/21 08:00 BP 153/83 07/19/21 08:00 Pulse Ox 96 07/19/21 08:00 FiO2 Intake & Output 07/18/21 07/19/21 07/19/21 18:59 06:59 18:59 Intake Total 750 Output Total 1200 300 Balance -450 -300 Intake: IV 750 Output: Urine 1100 300 Uretheral (Wills) 550 Estimated Blood Loss 100 Other: Voiding Method External Catheter Indwelling Catheter - Labs CBC & Chem 7: 07/19/21 06:22 07/19/21 06:22 Labs: Abnormal Lab Results - Last 24 Hours (Table) 07/18/21 07/19/21 07/19/21 Range/Units 12:03 06:22 06:22 WBC 14.5 H (3.8-10.6) k/uL RBC 3.70 L (3.80-5.40) m/uL Hgb 11.2 L 10.9 L (11.4-16.0) gm/dL Hct 32.9 L (34.0-46.0) % Neutrophils # 12.3 H (1.3-7.7) k/uL Sodium 131 L (137-145) mmol/L Glucose 131 H (74-99) mg/dL Calcium 8.3 L (8.4-10.2) mg/dL
[2021-07-19] MEDS: ASPIRIN 325 MG TAB PO SCH ×2 (17:22→20:48)
[2021-07-19] MEDS: ATORVASTATIN 20 MG TAB PO SCH (20:48)
[2021-07-19] MEDS: SENNOSIDES-DOCUSATE SODIUM 1 EACH TAB PO SCH (20:49)
[2021-07-20 05:41] LABS: HCT 29.9 % (34.0-46.0); HGB 9.5 gm/dL (11.4-16.0); MCH 28.6 pg (25.0-35.0); MCHC 31.6 g/dL (31.0-37.0); MCV 90.4 fL (80.0-100.0); Mean Platelet Volume 8.2; Platelet Count 187 k/uL (150-450); RBC 3.31 m/uL (3.80-5.40); RDW 13.2 % (11.5-15.5); WBC 8.7 k/uL (3.8-10.6)
[2021-07-20 05:58] LABS: African American GFR (CKD) 61 (>60 ml/min/1.73 sqM); Anion Gap 4 mmol/L; Blood Urea Nitrogen 24 mg/dL (7-17); Calcium 7.9 mg/dL (8.4-10.2); Carbon Dioxide 28 mmol/L (22-30); Chloride 100 mmol/L (98-107); Glucose 105 mg/dL (74-99); Non-African American GFR(CKD) 53 (>60 ml/min/1.73 sqM); Potassium 3.9 mmol/L (3.5-5.1); Sodium 132 mmol/L (137-145)
[2021-07-20] MEDS: DILTIAZEM CD 180 MG CAP.ER.24H PO SCH (07:34)
[2021-07-20] MEDS: CHOLECALCIFEROL 25 MCG (1000 IU) TABLET PO SCH (07:34)
[2021-07-20] MEDS: PANTOPRAZOLE 40 MG TABLET PO SCH ×2 (07:34→22:35)
[2021-07-20] MEDS: ASPIRIN 325 MG TAB PO SCH ×2 (07:34→22:35)
[2021-07-20] MEDS: FLUoxetine HCL 20 MG CAP PO SCH (07:35)
[2021-07-20] MEDS: CALCIUM CARBONATE 500 MG CHEWABLE PO SCH (07:35)
[2021-07-20] MEDS: PROPRANOLOL 20 MG TAB PO SCH ×2 (07:35→22:35)
[2021-07-20 12:24] LABS: Basophils % (A) 0 %; Eosinophils # (A) 0.4 k/uL (0-0.7); Eosinophils % (A) 4 %; HCT 32.3 % (34.0-46.0); HGB 10.2 gm/dL (11.4-16.0); Lymphocytes # (A) 1.1 k/uL (1.0-4.8); Lymphocytes % (A) 12 %; MCH 28.4 pg (25.0-35.0); MCHC 31.5 g/dL (31.0-37.0); MCV 90.2 fL (80.0-100.0); Mean Platelet Volume 8.1; Monocytes # (A) 0.5 k/uL (0-1.0); Monocytes % (A) 6 %; Neutrophils # (A) 7.1 k/uL (1.3-7.7); Neutrophils % (A) 77 %; Platelet Count 198 k/uL (150-450); RBC 3.58 m/uL (3.80-5.40); RDW 13.3 % (11.5-15.5); WBC 9.3 k/uL (3.8-10.6)
--- NOTE | 2021-07-20 13:05 | P.PN ---
Subjective Progress Note Date: 07/20/21 Hospital course: Patient is a very pleasant 86-year-old female with a past medical history of hypertension, dyslipidemia, status post permanent pacemaker, benign brain tumor status post resection and bladder cancer who presented to the ER on 07/17/21 after a fall at home. In the ER she underwent an extensive evaluation. She was found to have an intertrochanteric left femur fracture underwent closed reduction and intramedullary nailing of left hip on 07/18/21. She was agitated overnight on 07/18 and removed 2 IVS and her wills. Patient's mentation has since improved since discontinuation of Dilaudid and she is currently awaiting placement in SNF, [facility]. Physical examination: General: non toxic, no distress, appears at stated age Derm: warm, dry Head: atraumatic, normocephalic, symmetric Eyes: EOMI, no lid lag, anicteric sclera Mouth: no lip lesion, mucus membranes moist Cardiovascular: S1S2 reg, no murmur, positive posterior tibial pulse bilateral, Lungs: CTA bilateral, no rhonchi, no rales , no accessory muscle use Abdominal: soft, nontender to palpation, no guarding, no appreciable organome sixto Ext: no gross muscle atrophy, no edema, no contractures Neuro: CN II-XI grossly intact, no focal neuro deficits Psych: Alert, oriented, appropriate affect Assessmnet and plan of care: Left femur fracture, status post closed reduction and intramedullary nailing on 07/18/21 - management per primary admitting orthopedic team including DVT prophylaxis, p ain management, weightbearing, and PT/OT - pain control - DVT prophylaxis per ortho, aspirin Acute postoperative blood loss anemia - no indication for transfusion, hemoglobin stable this morning and 10.2. - follow CBC Hypertension - follow BP - cardizem, propranolol Acute metabolic encephalopathy - tylenol - dilaudid discontinued due to confusion - monitor for rentention - pt refusing to have IV restarted, encourage oral fluids 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 Do not hesitate to contact us with questions. Someone can be reached from the [facility] hospitalist group all hours of the day at [phone] or via perfect serve. Objective - Vital Signs Vital signs: Vital Signs Temp 98 F 07/20/21 06:51 Pulse 60 07/20/21 06:51 Resp 18 07/20/21 06:51 BP 138/80 07/20/21 06:51 Pulse Ox 90 L 07/20/21 06:51 FiO2 Intake & Output 07/19/21 07/20/21 07/20/21 18:59 06:59 18:59 Output Total 100 Balance -100 Output: Urine 100 - Labs CBC & Chem 7: 07/20/21 04:50 07/20/21 04:50 Labs: Abnormal Lab Results - Last 24 Hours (Table) 07/20/21 07/20/21 Range/Units 04:50 04:50 RBC 3.31 L (3.80-5.40) m/uL Hgb 9.5 L (11.4-16.0) gm/dL Hct 29.9 L (34.0-46.0) % Sodium 132 L (137-145) mmol/L BUN 24 H (7-17) mg/dL Glucose 105 H (74-99) mg/dL Calcium 7.9 L (8.4-10.2) mg/dL
--- NOTE | 2021-07-20 20:31 | P.PN ---
Subjective Progress Note Date: 07/20/21 Principal diagnosis: Left hip fracture This is a pleasant 86-year-old female who is status post close reduction and insertion of intertrochanteric nail left hip. Today is postoperative day #2. She has no new complaints today and appears to be doing well. Vital signs are stable. Objective - Vital Signs Vital signs: Vital Signs Temp 98 F 07/20/21 06:51 Pulse 60 07/20/21 06:51 Resp 18 07/20/21 06:51 BP 138/80 07/20/21 06:51 Pulse Ox 90 L 07/20/21 06:51 FiO2 Intake & Output 07/19/21 07/20/21 07/20/21 18:59 06:59 18:59 Output Total 100 Balance -100 Output: Urine 100 Other: Voiding Method Toilet Incontinent # Voids 1 - Exam Inspection reveals a benign surgical wound. There is no active bleeding or drainage. Neurovascular status is intact throughout the lower extremity with motor and sensation fully intact. Calf is soft and nontender. 2+ dorsalis pedis pulse and less than 2 second cap refill is present. - Constitutional General appearance: Present: no acute distress - Labs CBC & Chem 7: 07/20/21 11:52 07/20/21 04:50 Labs: Abnormal Lab Results - Last 24 Hours (Table) 07/20/21 07/20/21 07/20/21 Range/Units 04:50 04:50 11:52 RBC 3.31 L 3.58 L (3.80-5.40) m/uL Hgb 9.5 L 10.2 L (11.4-16.0) gm/dL Hct 29.9 L 32.3 L (34.0-46.0) % Sodium 132 L (137-145) mmol/L BUN 24 H (7-17) mg/dL Glucose 105 H (74-99) mg/dL Calcium 7.9 L (8.4-10.2) mg/dL Assessment and Plan (1) Intertrochanteric fracture of left hip Narrative/Plan: She will continue with routine postop orthopedic protocol including pain management, wound care, PT, DVT prophylaxis and medical management. Expect that she will transfer to [facility] in next 1-2 days Current Visit: Yes Status: Acute Code(s): S72.142A - DISPLACED INTER TROCHANTERIC FRACTURE OF LEFT FEMUR, INIT SNOMED Code(s): 963785195 Time with Patient: Less than 30
[2021-07-20] MEDS: ATORVASTATIN 20 MG TAB PO SCH (22:35)
[2021-07-20] MEDS: SENNOSIDES-DOCUSATE SODIUM 1 EACH TAB PO SCH (22:35)
[2021-07-21] MEDS: ASPIRIN 325 MG TAB PO SCH (08:28)
[2021-07-21] MEDS: CHOLECALCIFEROL 25 MCG (1000 IU) TABLET PO SCH (08:29)
[2021-07-21] MEDS: PROPRANOLOL 20 MG TAB PO SCH (08:29)
[2021-07-21] MEDS: PANTOPRAZOLE 40 MG TABLET PO SCH (08:29)
[2021-07-21] MEDS: FLUoxetine HCL 20 MG CAP PO SCH (08:29)
[2021-07-21] MEDS: DILTIAZEM CD 180 MG CAP.ER.24H PO SCH (08:29)
[2021-07-21] MEDS: CALCIUM CARBONATE 500 MG CHEWABLE PO SCH (08:31)
--- NOTE | 2021-07-21 10:06 | P.DS ---
Providers Date of admission: 07/17/21 14:09 Expected date of discharge: 07/21/21 Attending physician: Alen Cruz Consults: 07/17/21 14:09 Consult Physician Urgent Consulting Provider: Jennie Amanda Consult Reason/Comments: Medical clearance for surgery Do you want consulting provider notified?: Yes Primary care physician: [facility] Course: This is an 86-year-old female who is admitted to [facility] on 07/17/21 after a ground-level fall and sustaining injury to the left hip. X-rays in the emergency department revealed a left intertrochanteric hip fracture. She is admitted to our service for surgical intervention and care. Patient was taken to surgery for closed rintramedullary nailing left hip on 07/18/[address] Alen Cruz. The procedure was performed without complication or sequelae. The patient is doing fairly well postoperatively. Vital signs and labs are stable on postoperative day #3. Patient was examined bedside today. Patient states she is doing well and her hip pain is well-controlled. She has no verbalized complaints when asked besides mild nausea. She denies chest pain, shortness of breath, vomiting, fevers, chills. No additional complaints or concerns on the day of discharge. On examination, the patient is sitting up in bed. She is alert and orientated x3. On inspection of the left hip, the incision is healing well with no signs of infection. No drainage. There is mild swelling of the thigh, thigh is soft and compressible. Patient has good strength and ROM of the left ankle and toes. Motor and sensory function is intact of the left lower extremity. Dorsalis pedis pulse +2, left lower extremity is warm and well perfused. Calf is soft and non- tender. Patient is discharged to [facility] today, pending medical clearance today. Patient will follow-up in the office in two weeks. Please see med rec for accurate list of discharge medication. Plan - Discharge Summary Discharge Rx Participant: No New Discharge Prescriptions: No Action Calcium Carbonate 2,000 mg PO DAILY Propranolol HCl 20 mg PO BID Pantoprazole Sodium 40 mg PO BID FLUoxetine HCL [Sarafem] 40 mg PO DAILY Diltiazem HCl [Diltiazem ER] 180 mg PO DAILY Atorvastatin [Lipitor] 20 mg PO HS Ammonium Lactate Cream [Lac-Hydrin 12% Cream] 1 applic TOPICAL DAILY Meclizine [Antivert] 12.5 mg PO BID PRN PRN Reason: DIZZINESS Cholecalciferol [Vitamin D3 (25 Mcg = 1000 Iu)] 50 mcg PO DAILY Lidocaine 5% Patch [Lidoderm] 1 patch TOPICAL DAILY Discharge Medication List Ammonium Lactate Cream [Lac-Hydrin 12% Cream] 1 applic TOPICAL DAILY 09/27/16 [History] Atorvastatin [Lipitor] 20 mg PO HS 09/27/16 [History] Calcium Carbonate 2,000 mg PO DAILY 09/27/16 [History] Diltiazem HCl [Diltiazem ER] 180 mg PO DAILY 09/27/16 [History] FLUoxetine HCL [Sarafem] 40 mg PO DAILY 09/27/16 [History] Pantoprazole Sodium 40 mg PO BID 09/27/16 [History] Propranolol HCl 20 mg PO BID 09/27/16 [History] Cholecalciferol [Vitamin D3 (25 Mcg = 1000 Iu)] 50 mcg PO DAILY 07/17/21 [History] Lidocaine 5% Patch [Lidoderm] 1 patch TOPICAL DAILY 07/17/21 [History] Meclizine [Antivert] 12.5 mg PO BID PRN 07/17/21 [History] Follow up Appointment(s)/Referral(s): Davon Bah, [NON-STAFF] - As Needed Alen Em DO [Primary Care Provider] - 1-2 days
--- NOTE | 2021-07-21 11:31 | P.PN ---
Subjective Progress Note Date: 07/21/21 Hospital course: Patient is a very pleasant 86-year-old female with a past medical history of hypertension, dyslipidemia, status post permanent pacemaker, benign brain tumor status post resection and bladder cancer who presented to the ER on 07/17/21 after a fall at home. In the ER she underwent an extensive evaluation. She was found to have an intertrochanteric left femur fracture underwent closed reduction and intramedullary nailing of left hip on 07/18/21. She was agitated overnight on 07/18 and removed 2 IVS and her wills. Patient's mentation has since improved since discontinuation of Dilaudid and she is currently awaiting placement in SNF, [facility]. Physical examination: Patient is postoperative day 3. Patient has received insurance authorization, and orthopedic surgeries plan is for discharge to [facility]. Patient is hemodynamically stable. Current blood pressure 118/68, heart rate 57, respi ratory rate 20, and SpO2 of 97% on 2 L O2. Patient reports mild discomfort left hip but otherwise denies any complaints including headache, lightheadedness, dizziness, chest pain, palpitations, shortness of breath, cough, nausea, or vomiting. RN reports patient urinating without difficulties with no reported post void residual. Patient is medically stable for transfer to SNF at this time, updated patient's daughter via telephone of plans for discharge to senior living facility. General: non toxic, no distress, appears at stated age Derm: warm, dry Head: atraumatic, normocephalic, symmetric Eyes: EOMI, no lid lag, anicteric sclera Mouth: no lip lesion, mucus membranes moist Cardiovascular: S1S2 reg, no murmur, positive posterior tibial pulse bilateral, Lungs: CTA bilateral, no rhonchi, no rales , no accessory muscle use Abdominal: soft, nontender to palpation, no guarding, no appreciable organomegaly Ext: no gross muscle atrophy, no edema, no contractures Neuro: CN II-XI grossly intact, no focal neuro deficits Psych: Alert, oriented, appropriate affect Assessmnet and plan of care: Left femur fracture, status post closed reduction and intramedullary nailing on 07/18/21 - management per primary admitting orthopedic team including DVT prophylaxis, pain management, weightbearing, and PT/OT - pain control - DVT prophylaxis per ortho, aspirin Acute postoperative blood loss anemia - no indication for transfusion, hemoglobin stable this morning and 10.2. - follow CBC Hypertension - follow BP - cardizem, propranolol Acute metabolic encephalopathy - tylenol - dilaudid discontinued due to confusion - monitor for rentention - pt refusing to have IV restarted, encourage oral fluids Complete heart block - status post permanent pacemaker Dyslipidemia -Continue daily medication regimen with atorvastatin 20 mg nightly. Thank you for allowing us to participate in the care of this pleasant patient. Do not hesitate to contact us with questions. Someone can be reached from the [facility] hospitalist group all hours of the day at [phone] or via [employer]. I reviewed the documentation as provided by the OMID above, who is the original author of this note. I agree with the documented assessment and plan, with the following changes: none Objective - Vital Signs Vital signs: Vital Signs Temp 97.5 F L 07/21/21 08:00 Pulse 65 07/21/21 08:00 Resp 21 07/21/21 08:00 BP 157/81 07/21/21 08:00 Pulse Ox 91 L 07/21/21 08:00 FiO2 Intake & Output 07/20/21 07/21/21 07/21/21 18:59 06:59 18:59 Intake Total 632 Balance 632 Intake: IV 132 Sodium Chloride 0.9% 1, 132 000 ml @ 11 mls/hr IV . Q24H MAU Rx#:[id number] Oral 500 Other: Voiding Method Toilet Diaper Incontinent # Voids 1 1 - Labs CBC & Chem 7: 07/20/21 11:52 07/20/21 04:50 Labs: Abnormal Lab Results - Last 24 Hours (Table) 07/20/21 Range/Units 11:52 RBC 3.58 L (3.80-5.40) m/uL Hgb 10.2 L (11.4-16.0) gm/dL Hct 32.3 L (34.0-46.0) %
[2021-07-21 14:22] VITALS: BP 118/68; PULSE 57; RESP 20; TEMP 97.6
== END 2021-07-21 17:27 | DRG 480 ==
LOC: EC 12:28 → 4SSUR 14:09
PROVIDERS: ADMIT Orthopaedic Surgery; ATTEND Orthopaedic Surgery
PROC: 0QS736Z Reposition Left Upper Femur with Intramedullary Internal Fixation Device, Percutaneous Approach (ICD-10-PCS; principal; 2021-07-18 07:30)
DX: S72.145A Nondisplaced intertrochanteric fracture of left femur, initial encounter for closed fracture (principal); G93.41 Metabolic encephalopathy; I44.2 Atrioventricular block, complete; D62 Acute posthemorrhagic anemia; W01.0XXA Fall on same level from slipping, tripping and stumbling without subsequent striking against object, initial encounter; Z20.822 Contact with and (suspected) exposure to COVID-19; I10 Essential (primary) hypertension; E78.5 Hyperlipidemia, unspecified; R29.6 Repeated falls; Y93.01 Activity, walking, marching and hiking; Y92.009 Unspecified place in unspecified non-institutional (private) residence as the place of occurrence of the external cause; I25.2 Old myocardial infarction; Z85.51 Personal history of malignant neoplasm of bladder; Z86.011 Personal history of benign neoplasm of the brain; Z79.899 Other long term (current) drug therapy; Z90.710 Acquired absence of both cervix and uterus; Z95.0 Presence of cardiac pacemaker; Z91.81 History of falling; Z88.8 Allergy status to other drugs, medicaments and biological substances; Z82.49 Family history of ischemic heart disease and other diseases of the circulatory system
CPT/HCPCS: 70450; 71045; 72125; 73501; 73502; 80048; 80053; 83735; 85025; 85027; 85610; 85730; 87635; 93005; 94760; 96361; 96374; 99285

== ENCOUNTER 2021-10-03 21:04 | Emergency (ER) | payer OTHER ==
[2021-10-03 21:18] VITALS: BP 160/81; TEMP 97.9
[2021-10-03] MEDS ORDERED: TOPICAL SKIN ADHESIVE 1 EACH AMP TOPICAL ONE (21:57)
--- NOTE | 2021-10-03 21:59 | ED ---
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 Fall Witnessed: no Place Fall Occurred: home Loss of Consciousness: none Prolonged Down Time?: no Symptoms Prior to Fall: dizziness Location: head Severity: mild Severity scale (1-10): 0 Context: history of frequent falls Associated Symptoms: headache - Related Data Home Medications Medication Instructions Recorded Confirmed Ammonium Lactate Cream [Lac-Hydrin 1 applic TOPICAL DAILY 09/27/16 07/17/21 12% Cream] Atorvastatin [Lipitor] 20 mg PO HS 09/27/16 07/17/21 Calcium Carbonate 2,000 mg PO DAILY 09/27/16 07/17/21 FLUoxetine HCL [Sarafem] 40 mg PO DAILY 09/27/16 07/17/21 Pantoprazole Sodium 40 mg PO BID 09/27/16 07/17/21 Propranolol HCl 20 mg PO BID 09/27/16 07/17/21 dilTIAZem HCL [dilTIAZem HCL 24Hr 180 mg PO DAILY 09/27/16 07/17/21 ER (LA)] Cholecalciferol [Vitamin D3 (25 50 mcg PO DAILY 07/17/21 07/17/21 Mcg = 1000 Iu)] Lidocaine 5% Patch [Lidoderm 5% 1 patch TOPICAL DAILY 07/17/21 07/17/21 Patch] Meclizine [Antivert] 12.5 mg PO BID PRN 07/17/21 07/17/21 Previous Rx's Medication Instructions Recorded Acetaminophen Tab [Tylenol] 650 mg PO Q6HR PRN tab 07/21/21 Aspirin 325 mg PO BID 30 Days #60 tab 07/21/21 Melatonin 3 mg PO HS PRN tab 07/21/21 Allergies Allergy/AdvReac Type Severity Reaction Status Date / Time Fish Containing Products Allergy Unknown Verified 07/17/21 13:56 Iodine and Iodide Containing Allergy Unknown Verified 07/17/21 13:56 Produc Review of Systems ROS Statement: Those systems with pertinent positive or pertinent negative responses have been documented in the HPI. ROS Other: All systems not noted in ROS Statement are negative. Constitutional: Denies: fever, chills, weakness Eyes: Reports: eye pain Respiratory: Denies: cough, dyspnea Cardiovascular: Denies: chest pain, palpitations, syncope Gastrointestinal: Denies: abdominal pain, vomiting, diarrhea Neurological: Reports: headache, vertigo. Denies: weakness, numbness, paresthesias, confusion Hematological/Lymphatic: Denies: easy bleeding Past Medical History Past Medical History: Cancer, Hyperlipidemia, Hypertension, Myocardial Infarction (ID) Additional Past Medical History / Comment(s): brain CA, bladder CA, heart block History of Any Multi-Drug Resistant Organisms: None Reported Past Surgical History: Back Surgery, Hysterectomy, Pacemaker Additional Past Surgical History / Comment(s): ablation Past Anesthesia/Blood Transfusion Reactions: No Reported Reaction Type of Cardiac Device: Unknown Device Placement Date:: 2007 Past Psychological History: No Psychological Hx Reported Smoking Status: Never smoker Past Alcohol Use History: None Reported Past Drug Use History: None Reported - Past Family History Mother Family Medical History: Myocardial Infarction (ID) Father Family Medical History: Cancer Course Vital Signs 10/03/21 10/03/21 21:14 23:47 Temperature 97.9 F Pulse Rate 78 72 Respiratory 15 16 Rate Blood Pressure 160/81 O2 Sat by Pulse 98 Oximetry Procedures - Laceration Laceration #1 Consent Obtained: verbal consent Indication: laceration Site: scalp Description: linear Depth: simple, single layer Type of Sutures: other (Skin adhesive) Size of Sutures: other (Skin adhesive) Patient Tolerated Procedure: well, no complications Disposition Clinical Impression: Fall, Scalp laceration Disposition: HOME SELF-CARE Condition: Good Instructions (If sedation given, give patient instructions): Fall Prevention for Older Adults (ED), Skin Adhesive Care (ED) Is patient prescribed a controlled substance at d/c from ED?: No Referrals: Alen Em DO [Primary Care Provider] - 1-2 days
--- NOTE | 2021-10-03 22:48 | CT ---
EXAMINATION TYPE: CT brain amy wo con DATE OF EXAM: 10/03/2021 COMPARISON: 07/17/2021 HISTORY: fall CT DLP: 1381.6 mGycm Automated exposure control for dose reduction was used. There is cerebral cortical atrophy. There is no mass effect or midline shift. There is no evidence of intracranial hemorrhage. There is extensive white matter patchy hypodensity. The calvarium is intact . Skull base is intact. There is mucosal thickening in the maxillary sinuses. There is previous sinus surgery. There is some ethmoid and frontal sinus mucosal thickening. The skull base is intact. There is multilevel cervical spondylotic changes. There is disc space narrowing at C5-6 and C6-7. Fac et joints are intact. There is mild hypertrophic facet arthropathy. No subluxation. No compression fr acture. No cervical paraspinal mass. IMPRESSION: Mild cervical spondylotic changes. No fracture. No change compared to the old exam. Cerebral atrophy and extensive chronic small vessel ischemia. No acute intracranial abnormality. No c hange.
[2021-10-03] MEDS ORDERED: DIPH,PERTUS(ACELL)TETVAC-LF 0.5 ML VIAL IM ONE (23:24)
[2021-10-03 23:48] VITALS: PULSE 72; RESP 16
== END 2021-10-03 23:51 | disposition home or self-care (01) ==
LOC: EC 21:04
DX: S01.01XA Laceration without foreign body of scalp, initial encounter (principal); I10 Essential (primary) hypertension; I25.2 Old myocardial infarction; E78.5 Hyperlipidemia, unspecified; Z91.013 Allergy to seafood; Z91.041 Radiographic dye allergy status; Z79.899 Other long term (current) drug therapy; Z23 Encounter for immunization; W19.XXXA Unspecified fall, initial encounter; Y92.009 Unspecified place in unspecified non-institutional (private) residence as the place of occurrence of the external cause
CPT/HCPCS: 12001; 70450; 72125; 90471; 90715; 99284

== ENCOUNTER 2022-01-24 09:35 | Emergency (ER) | payer OTHER ==
[2022-01-24 09:42] VITALS: TEMP 98
[2022-01-24] MEDS ORDERED: IPRATROPIUM-ALBUTEROL 3 ML NEB INHALATION STA (10:10)
--- NOTE | 2022-01-24 10:12 | ED ---
General Adult HPI - General Chief complaint: Shortness of Breath Stated complaint: Pneumonia,JAVIER Time Seen by Provider: 01/24/22 09:52 Source: patient, RN notes reviewed Mode of arrival: ambulatory Limitations: no limitations - History of Present Illness Initial comments: Patient is a pleasant 86-year-old female presenting to the emergency Department with cough and dyspnea. Symptoms have been present over a week now. Patient did go to urgent care and was given antibiotics for possible pneumonia, no chest x-ray was done. Patient has continued symptoms. Cough does have occasional yellow sputum. Patient does have some mild leg swelling which is somewhat new for her. No calf pain. No history of chronic lung disease however did have asthma as a child. - Related Data Home Medications Medication Instructions Recorded Confirmed Ammonium Lactate Cream [Lac-Hydrin 1 applic TOPICAL DAILY 09/27/16 07/17/21 12% Cream] Atorvastatin [Lipitor] 20 mg PO HS 09/27/16 07/17/21 Calcium Carbonate 2,000 mg PO DAILY 09/27/16 07/17/21 FLUoxetine HCL [Sarafem] 40 mg PO DAILY 09/27/16 07/17/21 Pantoprazole Sodium 40 mg PO BID 09/27/16 07/17/21 Propranolol HCl 20 mg PO BID 09/27/16 07/17/21 dilTIAZem HCL [dilTIAZem HCL 24Hr 180 mg PO DAILY 09/27/16 07/17/21 ER ([place])] Cholecalciferol [Vitamin D3 (25 50 mcg PO DAILY 07/17/21 07/17/21 Mcg = 1000 Iu)] Lidocaine 5% Patch [Lidoderm 5% 1 patch TOPICAL DAILY 07/17/21 07/17/21 Patch] Meclizine [Antivert] 12.5 mg PO BID PRN 07/17/21 07/17/21 Previous Rx's Medication Instructions Recorded Acetaminophen Tab [Tylenol] 650 mg PO Q6HR PRN tab 07/21/21 Aspirin 325 mg PO BID 30 Days #60 tab 07/21/21 Melatonin 3 mg PO HS PRN tab 07/21/21 Albuterol Inhaler [Ventolin Hfa 2 puff INHALATION Q4HR PRN #1 each 01/24/22 Inhaler] predniSONE [Deltasone] 20 mg PO BID #8 tab 01/24/22 Allergies Allergy/AdvReac Type Severity Reaction Status Date / Time Fish Containing Products Allergy Unknown Verified 01/24/22 09:42 Iodine and Iodide Containing Allergy Unknown Verified 01/24/22 09:42 Produc Review of Systems ROS Statement: Those systems with pertinent positive or pertinent negative responses have been documented in the HPI. ROS Other: All systems not noted in ROS Statement are negative. Constitutional: Reports: fever (Her family told her she had low-grade fever) Eyes: Denies: eye pain ENT: Denies: ear pain Respiratory: Reports: as per HPI, cough, dyspnea Cardiovascular: Denies: chest pain Endocrine: Denies: fatigue Gastrointestinal: Denies: abdominal pain Genitourinary: Denies: dysuria Musculoskeletal: Denies: back pain Skin: Denies: rash Neurological: Denies: weakness Past Medical History Past Medical History: Cancer, Hyperlipidemia, Hypertension, Myocardial In farction ([place]) Additional Past Medical History / Comment(s): brain CA, bladder CA, heart block History of Any Multi-Drug Resistant Organisms: None Reported Past Surgical History: Back Surgery, Hysterectomy, Joint Replacement, Pacemaker Additional Past Surgical History / Comment(s): ablation Past Anesthesia/Blood Transfusion Reactions: No Reported Reaction Type of Cardiac Device: Unknown Device Placement Date:: 2007 Past Psychological History: No Psychological Hx Reported Smoking Status: Never smoker Past Alcohol Use History: None Reported Past Drug Use History: None Reported - Past Family History Mother Family Medical History: Myocardial Infarction ([place]) Father Family Medical History: Cancer General Exam Limitations: no limitations General appearance: alert, in no apparent distress Eye exam: Present: normal appearance Neck exam: Present: normal inspection Respiratory exam: Present: rhonchi Cardiovascular Exam: Present: regular rate, normal rhythm GI/Abdominal exam: Present: soft. Absent: tenderness Extremities exam: Present: pedal edema (+1 bilateral). Absent: calf tenderness Neurological exam: Present: alert Psychiatric exam: Present: normal affect, normal mood Skin exam: Present: normal color Course Vital Signs 01/24/22 01/24/22 01/24/22 09:39 09:48 11:15 Temperature 98 F Pulse Rate 60 70 Respiratory 18 22 Rate Blood Pressure 137/74 O2 Sat by Pulse 96 Oximetry 01/24/22 11:22 Temperature Pulse Rate 74 Respiratory Rate Blood Pressure O2 Sat by Pulse Oximetry EKG Findings - EKG Results: EKG: interpreted by ERMD (paced rhythm rate 65. Left axis. Wide-complex QRS. Nonspecific ST-T.) Medical Decision Making - Medical Decision Making patient reevaluated and resting comfortably in bed. Patient still has some rhonchi on exam. Patient and family updated on results and need for follow-up. - Lab Data Result diagrams: 01/24/22 10:19 01/24/22 10:19 Lab Results 01/24/22 01/24/22 01/24/22 Range/Units 10:19 10:19 10:19 WBC 8.4 (3.8-10.6) k/uL RBC 3.84 (3.80-5.40) m/uL Hgb 11.4 (11.4-16.0) gm/dL Hct 34.3 (34.0-46.0) % MCV 89.3 (80.0-100.0) fL MCH 29.6 (25.0-35.0) pg MCHC 33.2 (31.0-37.0) g/dL RDW 12.4 (11.5-15.5) % Plt Count 333 (150-450) k/uL MPV 8.5 Neutrophils % 66 % Lymphocytes % 21 % Monocytes % 5 % Eosinophils % 6 % Basophils % 1 % Neutrophils # 5.5 (1.3-7.7) k/uL Lymphocytes # 1.8 (1.0-4.8) k/uL Monocytes # 0.4 (0-1.0) k/uL Eosinophils # 0.5 (0-0.7) k/uL Basophils # 0.0 (0-0.2) k/uL PT 11.2 (9.0-12.0) sec INR 1.1 (<1.2) APTT 23.3 (22.0-30.0) sec D-Dimer 4.55 H (<0.60) mg/L FEU Sodium 141 (137-145) mmol/L Potassium 3.3 L (3.5-5.1) mmol/L Chloride 104 (98-107) mmol/L Carbon Dioxide 31 H (22-30) mmol/L Anion Gap 6 mmol/L BUN 14 (7-17) mg/dL Creatinine 0.77 (0.52-1.04) mg/dL Est GFR (CKD-EPI)AfAm 80 (>60 ml/min/1.73 sqM) Est GFR (CKD-EPI)NonAf 70 (>60 ml/min/1.73 sqM) Glucose 110 H (74-99) mg/dL Plasma Lactic Acid [place] (0.7-2.0) mmol/L Calcium 8.2 L (8.4-10.2) mg/dL Total Bilirubin 0.7 (0.2-1.3) mg/dL AST 25 (14-36) U/L ALT 14 (4-34) U/L Alkaline Phosphatase 121 (38-126) U/L Troponin I (0.000-0.034) ng/mL NT-Pro-B Natriuret Pep pg/mL Total Protein 6.4 (6.3-8.2) g/dL Albumin 3.0 L (3.5-5.0) g/dL Influenza Type A (PCR) (Not Detectd) Influenza Type B (PCR) (Not Detectd) RSV (PCR) (Not Detectd) SARS-CoV-2 (PCR) (Not Detectd) 01/24/22 01/24/22 01/24/22 Range/Units 10:19 10:19 10:19 WBC (3.8-10.6) k/uL RBC (3.80-5.40) m/uL Hgb (11.4-16.0) gm/dL Hct (34.0-46.0) % MCV (80.0-100.0) fL MCH (25.0-35.0) pg MCHC (31.0-37.0) g/dL RDW (11.5-15.5) % Plt Count (150-450) k/uL MPV Neutrophils % % Lymphocytes % % Monocytes % % Eosinophils % % Basophils % % Neutrophils # (1.3-7.7) k/uL Lymphocytes # (1.0-4.8) k/uL Monocytes # (0-1.0) k/uL Eosinophils # (0-0.7) k/uL Basophils # (0-0.2) k/uL PT (9.0-12.0) sec INR (<1.2) APTT (22.0-30.0) sec D-Dimer (<0.60) mg/L FEU Sodium (137-145) mmol/L Potassium (3.5-5.1) mmol/L Chloride (98-107) mmol/L Carbon Dioxide (22-30) mmol/L Anion Gap mmol/L BUN (7-17) mg/dL Creatinine (0.52-1.04) mg/dL Est GFR (CKD-EPI)AfAm (>60 ml/min/1.73 sqM) Est GFR (CKD-EPI)NonAf (>60 ml/min/1.73 sqM) Glucose (74-99) mg/dL Plasma Lactic Acid [place] 1.0 (0.7-2.0) mmol/L Calcium (8.4-10.2) mg/dL Total Bilirubin (0.2-1.3) mg/dL AST (14-36) U/L ALT (4-34) U/L Alkaline Phosphatase (38-126) U/L Troponin I <0.012 (0.000-0.034) ng/mL NT-Pro-B Natriuret Pep 1650 pg/mL Total Protein (6.3-8.2) g/dL Albumin (3.5-5.0) g/dL Influenza Type A (PCR) (Not Detectd) Influenza Type B (PCR) (Not Detectd) RSV (PCR) (Not Detectd) SARS-CoV-2 (PCR) (Not Detectd) 01/24/22 Range/Units 10:19 WBC (3.8-10.6) k/uL RBC (3.80-5.40) m/uL Hgb (11.4-16.0) gm/dL Hct (34.0-46.0) % MCV (80.0-100.0) fL MCH (25.0-35.0) pg MCHC (31.0-37.0) g/dL RDW (11.5-15.5) % Plt Count (150-450) k/uL MPV Neutrophils % % Lymphocytes % % Monocytes % % Eosinophils % % Basophils % % Neutrophils # (1.3-7.7) k/uL Lymphocytes # (1.0-4.8) k/uL Monocytes # (0-1.0) k/uL Eosinophils # (0-0.7) k/uL Basophils # (0-0.2) k/uL PT (9.0-12.0) sec INR (<1.2) APTT (22.0-30.0) sec D-Dimer (<0.60) mg/L FEU Sodium (137-145) mmol/L Potassium (3.5-5.1) mmol/L Chloride (98-107) mmol/L Carbon Dioxide (22-30) mmol/L Anion Gap mmol/L BUN (7-17) mg/dL Creatinine (0.52-1.04) mg/dL Est GFR (CKD-EPI)AfAm (>60 ml/min/1.73 sqM) Est GFR (CKD-EPI)NonAf (>60 ml/min/1.73 sqM) Glucose (74-99) mg/dL Plasma Lactic Acid [place] (0.7-2.0) mmol/L Calcium (8.4-10.2) mg/dL Total Bilirubin (0.2-1.3) mg/dL AST (14-36) U/L ALT (4-34) U/L Alkaline Phosphatase (38-126) U/L Troponin I (0.000-0.034) ng/mL NT-Pro-B Natriuret Pep pg/mL Total Protein (6.3-8.2) g/dL Albumin (3.5-5.0) g/dL Influenza Type A (PCR) Not Detected (Not Detectd) Influenza Type B (PCR) Not Detected (Not Detectd) RSV (PCR) Not Detected (Not Detectd) SARS-CoV-2 (PCR) Not Detected (Not Detectd) - Radiology Data Radiology results: report reviewed (CT angios negative for pulmonary embolism. Bronchitis.) Interpreted by me: Chest x-ray shows no acute process Disposition Clinical Impression: Bronchitis Disposition: HOME SELF-CARE Condition: Stable Instructions (If sedation given, give patient instructions): Acute Bronchitis (ED) Additional Instructions: please do follow-up with primary care physician in the next day or 2 for recheck. Return for difficulty breathing, fevers, worsening symptoms, or any other concerns. Prescriptions have been sent to pharmacy. Prescriptions: predniSONE [Deltasone] 20 mg PO BID #8 tab Albuterol Inhaler [Ventolin Hfa Inhaler] 2 puff INHALATION Q4HR PRN #1 each PRN Reason: Dyspnea Is patient prescribed a controlled substance at d/c from ED?: No Referrals: [facility] [Primary Care Provider] - 1-2 days Time of Disposition: 13:58
--- NOTE | 2022-01-24 10:33 | XR ---
EXAMINATION TYPE: XR chest 2V DATE OF EXAM: 01/24/2022 COMPARISON: 07/17/21 HISTORY: Shortness of breath TECHNIQUE: Frontal and lateral views of the chest are obtained. FINDINGS: Scattered senescent parenchymal changes noted. Hyperinflation compatible with COPD. No evidence for infiltrate. No evidence for atelectasis. Heart size is stable. Mediastinal structures are stable and grossly unremarkable. No evidence for hilar prominence. Degenerative changes dorsal spine. IMPRESSION: 1. No evidence for acute pulmonary disease.
[2022-01-24 11:30] LABS: Calcium 8.2 mg/dL (8.4-10.2); Potassium 3.3 mmol/L (3.5-5.1); Total Bilirubin 0.7 mg/dL (0.2-1.3); Total Protein 6.4 g/dL (6.3-8.2)
[2022-01-24 11:34] LABS: Basophils % (A) 1 %; Eosinophils # (A) 0.5 k/uL (0-0.7); Eosinophils % (A) 6 %; HCT 34.3 % (34.0-46.0); HGB 11.4 gm/dL (11.4-16.0); Lymphocytes # (A) 1.8 k/uL (1.0-4.8); Lymphocytes % (A) 21 %; MCH 29.6 pg (25.0-35.0); MCHC 33.2 g/dL (31.0-37.0); MCV 89.3 fL (80.0-100.0); Mean Platelet Volume 8.5; Monocytes # (A) 0.4 k/uL (0-1.0); Monocytes % (A) 5 %; Neutrophils # (A) 5.5 k/uL (1.3-7.7); Neutrophils % (A) 66 %; Platelet Count 333 k/uL (150-450); RBC 3.84 m/uL (3.80-5.40); RDW 12.4 % (11.5-15.5); WBC 8.4 k/uL (3.8-10.6)
[2022-01-24 11:55] LABS: INR 1.1 (<1.2); Partial Thromboplastin Time 23.3 sec (22.0-30.0); Prothrombin Time 11.2 sec (9.0-12.0)
[2022-01-24] MEDS ORDERED: FAMOTIDINE 20 MG/2 ML VIAL IV STA (12:27)
[2022-01-24] MEDS ORDERED: methylPREDNISolone SOD SUCCI 125 MG/2 ML VIAL IV STA (12:27)
[2022-01-24] MEDS ORDERED: diphenhydrAMINE 50 MG/ML 1 ML VIAL IVP STA (12:27)
--- NOTE | 2022-01-24 13:13 | CT ---
EXAMINATION TYPE: CT angio chest DATE OF EXAM: 01/24/2022 COMPARISON: None HISTORY: dyspnea CT DLP: 233.4 mGycm CONTRAST: CT chest with contrast and 3D reconstruction with MIP imaging is performed with IV Contrast, patient injected with 100ML mL of Isovue 370. Contrast-enhanced CT of the chest was performed through the course of the pulmonary arteries with vanessa g and mediastinal window settings submitted. 3D reconstruction with MIP imaging was also performed. PULMONARY ARTERIES: The pulmonary arteries and their major tributaries are patent. I do not see mony dence for sizable filling defect to suggest pulmonary embolic process. LUNGS: The lungs are clear and free of infiltrate. There is lower lobe bronchial wall thickening whic h can be seen in patients with bronchitis. No evidence for atelectasis. No pulmonary nodule or mass is detected. No pleural effusion. MEDIASTINUM: Thoracic aorta is of normal caliber,however, evaluation is limited given timing of the contrast bolus. If there is concern for thoracic aortic pathology consider TESSA. Correlate clinicall y . The heart is not enlarged. No evidence for mediastinal mass. No mediastinal lymph nodes greater than 1cm. HILAR STRUCTURES: No evidence for mass. No hilar lymph nodes greater than 1 cm. UPPER ABDOMEN: No significant abnormality is seen. IMPRESSION: 1. No evidence for Pulmonary embolism at this time. 2.There is lower lobe bronchial wall thickening which can be seen in patients with bronchitis.
[2022-01-24 14:18] VITALS: BP 128/76; PULSE 87; RESP 16
== END 2022-01-24 14:18 | disposition home or self-care (01) ==
LOC: EC 09:35
DX: J40 Bronchitis, not specified as acute or chronic (principal); E78.5 Hyperlipidemia, unspecified; I10 Essential (primary) hypertension; I25.2 Old myocardial infarction; Z79.899 Other long term (current) drug therapy; Z20.822 Contact with and (suspected) exposure to COVID-19; Z91.013 Allergy to seafood; Z88.8 Allergy status to other drugs, medicaments and biological substances
CPT/HCPCS: 99285; 96374; 96375 ×2; 36415; 94640; 93005; 85379; 83880; 80053; 83605; 84484; 85025; 85610; 85730; 87636; 71046; 71275; J1200; J2930; Q9967

== ENCOUNTER → 2023-01-18 | Outpatient (CLI) | payer OTHER ==
--- NOTE | 2023-01-20 12:04 | MM ---
Reason for Exam: Screening (asymptomatic). Last mammogram was performed 2 year(s) and 9 month(s) ago. Patient History: Menarche at age 14. First Full-Term at age 22. Hysterectomy at age 34. Postmenopausal. Prior Study Comparison: 02/01/2019 Bilateral Screening Mammogram, [facility]. 02/16/2019 Right Diagnostic Mammogram, [facility]. 05/13/2020 Bilateral Screening Mammogram, [facility]. Tissue Density: The breast tissue is heterogeneously dense. This may lower the sensitivity of mammography. Findings: Analyzed By CAD. There is no suspicious group of microcalcifications or new suspicious mass in either breast. Overall Assessment: Negative, BI-RAD 1 Management: Screening Mammogram of both breasts in 1 year. . Patient should continue monthly self-breast exams. A clinical breast exam by your physician is recommended on an annual basis. This exam should not preclude additional follow-up of suspicious palpable abnormalities. Note on Essie scores and lifetime risk: 1. A Essie score greater than 3% is considered moderate risk. If this is the case, consider specialist referral to assess eligibility for a risk reducing agent. 2. If overall lifetime risk for the development of breast cancer is 20% or higher, the patient may qualify for future screening with alternating mammogram and breast MRI. Electronically signed and approved by: Blade Urbina M.D. Radiologis
== END | disposition home or self-care (01) ==
LOC: RADMAMWWP 09:51
DX: Z12.31 Encounter for screening mammogram for malignant neoplasm of breast (principal); Z78.0 Asymptomatic menopausal state
CPT/HCPCS: 77063; 77067

== ENCOUNTER 2023-05-31 14:25 | Inpatient (IN) | payer OTHER, MEDICARE ==
--- NOTE | 2023-05-31 14:44 | ED ---
Nausea/Vomiting/Diarrhea HPI - General Source: patient, family, RN notes reviewed Mode of arrival: wheelchair Limitations: no limitations <Renuka Baltazar - Last Filed: 05/31/23 14:43> - History of Present Illness MD complaint: nausea, vomiting, diarrhea Onset/Timin -: days(s) Description of Vomiting: food contents Description of Diarrhea: water Associated Abdominal Pain: No Severity: moderate Severity scale (1-10): 0 Consistency: constant Improves with: none Worsens with: none Associated Symptoms: denies other symptoms <Tony Rdz - Last Filed: 06/05/23 20:18> - General Stated complaint: Vomitting, Diarrhea, dehydration Time Seen by Provider: 05/31/23 14:43 - History of Present Illness Initial comments: Quick note: 88-year-old female presenting to the ER with a chief complaint of diarrhea and vomiting. Family states this has been since , 05/26/23. Denies fevers or abdominal pain. (Renuka Baltazar) This patient is an 88-year-old woman with some underlying dementia who is brought by family to have evaluation of vomiting and diarrhea. The patient has been having symptoms since . The patient denies abdominal pains. She states she had probably over 5 episodes of vomiting and of diarrhea yesterday. The patient had not noticed any bloody or dark material. No fever or chills. (Tony Rdz) - Related Data Home Medications Medication Instructions Recorded Confirmed Ammonium Lactate Cream [Lac-Hydrin 1 applic TOPICAL DAILY 09/27/16 05/31/23 12% Cream] Atorvastatin [Lipitor] 20 mg PO HS 09/27/16 05/31/23 Calcium Carbonate 2,000 mg PO DAILY 09/27/16 05/31/23 Pantoprazole Sodium 40 mg PO BID 09/27/16 05/31/23 dilTIAZem HCL [dilTIAZem HCL 24Hr 180 mg PO DAILY 09/27/16 05/31/23 ER ([place])] Cholecalciferol [Vitamin D3 (25 50 mcg PO DAILY 07/17/21 05/31/23 Mcg = 1000 Iu)] Lidocaine 5% Patch [Lidoderm 5% 1 patch TOPICAL DAILY 07/17/21 05/31/23 Patch] Meclizine [Antivert] 12.5 mg PO BID PRN 07/17/21 05/31/23 FLUoxetine HCL [PROzac] 40 mg PO DAILY 05/31/23 05/31/23 Previous Rx's Medication Instructions Recorded Acetaminophen Tab [Tylenol] 650 mg PO Q6HR PRN tab 06/03/23 Allergies Allergy/AdvReac Type Severity Reaction Status Date / Time Fish Containing Products Allergy Unknown Verified 05/31/23 17:36 Iodine and Iodide Containing Allergy Unknown Verified 05/31/23 17:36 Produc Review of Systems ROS Other: All systems not noted in ROS Statement are negative. <Renuka Baltazar - Last Filed: 05/31/23 14:43> ROS Other: All systems not noted in ROS Statement are negative. Constitutional: Reports: weakness. Denies: fever, chills Respiratory: Denies: cough, dyspnea Cardiovascular: Denies: chest pain, palpitations Gastrointestinal: Reports: nausea, vomiting, diarrhea. Denies: abdominal pain, constipation, hematemesis, melena, hematochezia Genitourinary: Denies: dysuria, hematuria Musculoskeletal: Denies: back pain Skin: Denies: rash Neurological: Denies: headache, weakness <Tony Rdz - Last Filed: 06/05/23 20:18> ROS Statement: Those systems with pertinent positive or pertinent negative responses have been documented in the HPI. Past Medical History Past Medical History: Cancer, Hyperlipidemia, Hypertension, Myocardial Infarction ([place]) Additional Past Medical History / Comment(s): brain CA, bladder CA, heart block History of Any Multi-Drug Resistant Organisms: None Reported Past Surgical History: Back Surgery, Hysterectomy, Joint Replacement, Pacemaker Additional Past Surgical History / Comment(s): ablation Past Anesthesia/Blood Transfusion Reactions: No Reported Reaction Type of Cardiac Device: Unknown Device Placement Date:: 2007 Past Psychological History: No Psychological Hx Reported Smoking Status: Never smoker Past Alcohol Use History: None Reported Past Drug Use History: None Reported - Past Family History Mother Family Medical History: Myocardial Infarction ([place]) Father Family Medical History: Cancer <Renuka Baltazar - Last Filed: 05/31/23 14:43> General Exam <Renuka Baltazar - Last Filed: 05/31/23 14:43> General appearance: alert, in no apparent distress, cachectic Head exam: Present: atraumatic, normocephalic Eye exam: Present: normal appearance. Absent: scleral icterus, conjunctival injection ENT exam: Present: mucous membranes dry Neck exam: Present: normal inspection Respiratory exam: Present: normal lung sounds bilaterally. Absent: respiratory distress, wheezes, rales, rhonchi, stridor Cardiovascular Exam: Present: regular rate, normal rhythm, normal heart sounds. Absent: systolic murmur, diastolic murmur, rubs, gallop GI/Abdominal exam: Present: soft. Absent: distended, tenderness, guarding, rebound, mass Extremities exam: Present: normal inspection, normal capillary refill. Absent: pedal edema, calf tenderness Back exam: Present: normal inspection. Absent: CVA tenderness (R), CVA tenderness (L) Neurological exam: Present: alert Skin exam: Present: warm, dry, intact, normal color. Absent: rash <Tony Rdz - Last Filed: 06/05/23 20:18> - General Exam Comments Initial Comments: Visual Physical Exam General: Well-appearing, nontoxic, no acute distress. Head: Normocephalic, atraumatic Eyes: PERRLA, EOMI ENT: Airway patent Chest: Nonlabored breathing Skin: No visual rash, normal skin tone Neuro: Alert and oriented 3 Musculoskeletal: No gross abnormalities (StarihaRenuka) Course Vital Signs 05/31/23 05/31/23 05/31/23 15:17 16:52 20:17 Temperature 98.2 F Pulse Rate 81 78 86 Pulse Rate [ Pulse Oximetery ] Respiratory 16 20 18 Rate Blood Pressure 115/64 151/88 146/88 Blood Pressure [Left Arm] O2 Sat by Pulse 96 99 98 Oximetry 05/31/23 06/01/23 06/01/23 21:32 00:00 04:00 Temperature 98.0 F Pulse Rate 69 77 64 Pulse Rate [ Pulse Oximetery ] Respiratory 16 16 15 Rate Blood Pressure 138/92 126/88 151/76 Blood Pressure [Left Arm] O2 Sat by Pulse 96 97 96 Oximetry 06/01/23 06/01/23 06/01/23 06:02 07:54 09:15 Temperature Pulse Rate 64 71 Pulse Rate [ Pulse Oximetery ] Respiratory 18 18 Rate Blood Pressure 144/77 146/76 Blood Pressure [Left Arm] O2 Sat by Pulse 96 98 Oximetry 06/01/23 06/01/23 06/01/23 15:02 16:37 18:35 Temperature 98.7 F 98.1 F Pulse Rate 60 78 76 Pulse Rate [ Pulse Oximetery ] Respiratory 18 18 18 Rate Blood Pressure 131/70 131/73 131/75 Blood Pressure [Left Arm] O2 Sat by Pulse 94 L 96 98 Oximetry 06/01/23 06/02/23 06/02/23 23:57 00:08 00:12 Temperature 98.1 F 98.1 F Pulse Rate 65 Pulse Rate [ 72 72 Pulse Oximetery ] Respiratory 18 15 16 Rate Blood Pressure 120/69 Blood Pressure 156/89 156/89 [Left Arm] O2 Sat by Pulse 95 96 96 Oximetry Medical Decision Making <Renuka Baltazar - Last Filed: 05/31/23 14:43> - Lab Data Result diagrams: 06/02/23 07:24 06/02/23 07:24 <oTny Rdz - Last Filed: 06/05/23 20:18> - Medical Decision Making I performed the quick note portion of this chart. Electronically signed by Renuka Baltazar PA-C (Renuka Baltazar) Was pt. sent in by a medical professional or institution (KALIA Rutledge, PROFESSOR OF VOICE, urgent care, hospital, or assisted...) When possible be specific @ -[No] Did you speak to anyone other than the patient for history (EMS, parent, family, police, friend...)? What history was obtained from this source @ -[Patient's family did provide history Did you review nursing and triage notes (agree or disagree)? Why? @ -[I reviewed and agree with nursing and triage notes] Were old charts reviewed (outside hosp., previous admission, EMS record, old EKG, old radiological studies, urgent care reports/EKG's, assisted records)? Report findings @ -[No old charts were reviewed] Differential Diagnosis (chest pain, altered mental status, abdominal pain women, abdominal pain men, vaginal bleeding, weakness, fever, dyspnea, syncope, headache, dizziness, GI bleed, back pain, seizure, CVA, palpatations, mental health, musculoskeletal)? @ -[Differential Weakness: Hypoglycemia, shock, sepsis, hyponatremia, anemia, infection, [place], ETOH, adverse medicine reaction, overdose, stroke, this is not meant to be an all-inclusive list. EKG interpreted by me (3pts min.). @ -[As above] X-rays interpreted by me (1pt min.). @ -[None done] CT interpreted by me (1pt min.). @ -[None done] U/S interpreted by me (1pt. min.). @ -[None done] What testing was considered but not performed or refused? (CT, X-rays, U/S, labs)? Why? @ -[None] What meds were considered but not given or refused? Why? @ -[None] Did you discuss the management of the patient with other professionals (professionals i.e. DrSwati, PA, PROFESSOR OF VOICE, lab, RT, psych nurse, drug abuse social worker, investigator utility bill complaints, teacher, sales promotion officer, telephonic nurse case manager)? Give summary @ -[No] Was smoking cessation discussed for >3mins.? @ -[No] Was critical care preformed (if so, how long)? @ -[No] Were there social determinants of health that impacted care today? How? (Homelessness, low income, unemployed, alcoholism, drug addiction, transportation, low edu. Level, literacy, decrease access to med. care, long-term, rehab)? @ -[No] Was there de-escalation of care discussed even if they declined (Discuss DNR or withdrawal of care, Hospice)? DNR status @ -[No] What co-morbidities impacted this encounter? (DM, HTN, Smoking, COPD, CAD, Cancer, CVA, ARF, Chemo, Hep., AIDS, mental health diagnosis, sleep apnea, morbid obesity)? @ -[Hypertension, CAD, history of cancer Was patient admitted / discharged? Hospital course, mention meds given and route, prescriptions, significant lab abnormalities, going to OR and other pertinent info. @ -[Patient is an 88-year-old woman here with acute dehydration secondary to diarrhea. We did attempt to hydrate the patient and then see if she was able to ambulate and she promptly did fall. For this reason we will admit to have further hydration and possibility of requiring rehabilitation placement Undiagnosed new problem with uncertain prognosis? @ -[No] Drug Therapy requiring intensive monitoring for toxicity (Heparin, Nitro, Insulin, Cardizem)? @ -[No] Were any procedures done? @ -[No] Diagnosis/symptom? @ -[Acute generalized weakness Acute dehydration Acute, or Chronic, or Acute on Chronic? @ -[Acute Uncomplicated (without systemic symptoms) or Complicated (systemic symptoms)? @ -[Complicated by inability to ambulate Side effects of treatment? @ -[No] Exacerbation, Progression, or Severe Exacerbation? @ -[No] Poses a threat to life or bodily function? How? (Chest pain, [place], [place], pneumonia, PE, COPD, DKA, ARF, appy, cholecystitis, CVA, Diverticulitis, Homicidal, Suicidal, threat to staff... and all critical care pts) @ -[No] (Tony Rdz) - Lab Data Lab Results 05/31/23 05/31/23 05/31/23 Range/Units 15:14 15:14 15:14 WBC 7.7 (3.8-10.6) k/uL RBC 4.52 (3.80-5.40) m/uL Hgb 13.2 (11.4-16.0) gm/dL Hct 41.2 (34.0-46.0) % MCV 91.1 (80.0-100.0) fL MCH 29.1 (25.0-35.0) pg MCHC 31.9 (31.0-37.0) g/dL RDW 12.3 (11.5-15.5) % Plt Count 245 (150-450) k/uL MPV 7.9 Neutrophils % 69 % Lymphocytes % 19 % Monocytes % 7 % Eosinophils % 2 % Basophils % 1 % Neutrophils # 5.3 (1.3-7.7) k/uL Lymphocytes # 1.5 (1.0-4.8) k/uL Monocytes # 0.5 (0-1.0) k/uL Eosinophils # 0.2 (0-0.7) k/uL Basophils # 0.1 (0-0.2) k/uL Sodium 140 (137-145) mmol/L Potassium 4.1 (3.5-5.1) mmol/L Chloride 104 (98-107) mmol/L Carbon Dioxide 26 (22-30) mmol/L Anion Gap 10 mmol/L BUN 24 H (7-17) mg/dL Creatinine 1.13 H (0.52-1.04) mg/dL Est GFR (CKD-EPI)AfAm 50 (>60 ml/min/1.73 sqM) Est GFR (CKD-EPI)NonAf 43 (>60 ml/min/1.73 sqM) Glucose 111 H (74-99) mg/dL Plasma Lactic Acid [place] 1.5 (0.7-2.0) mmol/L Calcium 9.4 (8.4-10.2) mg/dL Total Bilirubin 0.5 (0.2-1.3) mg/dL AST 92 H (14-36) U/L ALT 48 H (4-34) U/L Alkaline Phosphatase 124 (38-126) U/L Total Protein 7.4 (6.3-8.2) g/dL Albumin 3.8 (3.5-5.0) g/dL Amylase 60 (30-110) U/L Lipase 79 (23-300) U/L Disposition <Renuka Baltazar - Last Filed: 05/31/23 14:43> Is patient prescribed a controlled substance at d/c from ED?: No <Tony Rdz - Last Filed: 06/05/23 20:18> Clinical Impression: Diarrhea, Dehydration, Inability to walk, Generalized weakness Disposition: ADMITTED IP TO THIS HOSP Condition: Fair
[2023-05-31 15:29] LABS: Basophils # (A) 0.1 k/uL (0-0.2); Basophils % (A) 1 %; Eosinophils # (A) 0.2 k/uL (0-0.7); Eosinophils % (A) 2 %; HCT 41.2 % (34.0-46.0); HGB 13.2 gm/dL (11.4-16.0); Lymphocytes # (A) 1.5 k/uL (1.0-4.8); Lymphocytes % (A) 19 %; MCH 29.1 pg (25.0-35.0); MCHC 31.9 g/dL (31.0-37.0); MCV 91.1 fL (80.0-100.0); Mean Platelet Volume 7.9; Monocytes # (A) 0.5 k/uL (0-1.0); Monocytes % (A) 7 %; Neutrophils # (A) 5.3 k/uL (1.3-7.7); Neutrophils % (A) 69 %; Platelet Count 245 k/uL (150-450); RBC 4.52 m/uL (3.80-5.40); RDW 12.3 % (11.5-15.5); WBC 7.7 k/uL (3.8-10.6)
[2023-05-31 15:40] LABS: ALT 48 U/L (4-34); AST 92 U/L (14-36); African American GFR (CKD) 50 (>60 ml/min/1.73 sqM); Albumin 3.8 g/dL (3.5-5.0); Alkaline Phosphatase 124 U/L (38-126); Amylase 60 U/L (30-110); Anion Gap 10 mmol/L; Blood Urea Nitrogen 24 mg/dL (7-17); Calcium 9.4 mg/dL (8.4-10.2); Carbon Dioxide 26 mmol/L (22-30); Chloride 104 mmol/L (98-107); Glucose 111 mg/dL (74-99); Lipase 79 U/L (23-300); Non-African American GFR(CKD) 43 (>60 ml/min/1.73 sqM); Potassium 4.1 mmol/L (3.5-5.1); Sodium 140 mmol/L (137-145); Total Bilirubin 0.5 mg/dL (0.2-1.3); Total Protein 7.4 g/dL (6.3-8.2)
[2023-05-31] MEDS: SODIUM CHLORIDE 0.9% 1,000 ML IV ONE (16:43)
[2023-05-31] MEDS: ONDANSETRON 4 MG/2 ML VIAL IVP STA (17:04)
[2023-05-31] MEDS ORDERED: NALOXONE 0.4 MG/ML 1 ML VIAL IV PRN (21:19)
[2023-05-31] MEDS: SODIUM CHLORIDE 0.9% 1,000 ML IV SCH (21:32)
--- NOTE | 2023-06-01 00:41 | P.HPIM ---
History of Present Illness H&P Date: 05/31/23 Chief Complaint: Nausea vomiting 88-year-old female with hypertension hyperlipidemia coronary artery disease Patient coming in for evaluation of diarrhea and vomiting that is been going on since last for about 5 days now patient denies any fevers or chills denies any abdominal pain nausea or vomiting denies any known sick contact denies recent travel or hospital stay denies any recent use of antibiotics. Denies anything similar happen before she has been visiting the bathroom multiple times throughout the day few days ago she lost her balance in the bathroom however she gets regular visiting nurse who can help her with her activities of daily living. Family brought her to the ED and discussed possible placement review of systems Pertinent positives as noted in HPI. All other systems were reviewed and are negative on exam Constitutional: No acute distress, conversant, pleasant Eyes: Anicteric sclerae, moist conjunctiva, Pupils equal round reactive to light ENMT: NC/AT Oropharynx clear, no erythema, or exudates Neck: Supple, no masses, or JVD No carotid bruits No thyromegaly Lungs: Clear to auscultation Clear to percussion Normal respiratory effort, no accessory muscle use Cardiovascular: Heart regular in rate and rhythm, Systolic murmur murmurs, gallops, or rubs No peripheral edema Abdominal: Soft Nontender, no guarding, rebound or rigidity Abdomen moving with respiration Normoactive bowel sounds Extremities: No digital cyanosis No clubbing Pedal pulses intact and symmetrical Radial pulses intact and symmetrical No calf tenderness Psychiatric: Alert and oriented to person, place bn Neuro Muscles Strength 5/5 in all 4 extremities Sensation to light touch grossly present throughout Cranial nerves II-XII grossly intact Past Medical History Past Medical History: Cancer, Hyperlipidemia, Hypertension, Myocardial Infarction ([place]) Additional Past Medical History / Comment(s): brain CA, bladder CA, heart block History of Any Multi-Drug Resistant Organisms: None Reported Past Surgical History: Back Surgery, Hysterectomy, Joint Replacement, Pacemaker Additional Past Surgical History / Comment(s): ablation Past Anesthesia/Blood Transfusion Reactions: No Reported Reaction Type of Cardiac Device: Unknown Device Placement Date:: 2007 Past Psychological History: No Psychological Hx Reported Smoking Status: Never smoker Past Alcohol Use History: None Reported Past Drug Use History: None Reported - Past Family History Mother Family Medical History: Myocardial Infarction ([place]) Father Family Medical History: Cancer Medications and Allergies Home Medications Medication Instructions Recorded Confirmed Type Ammonium Lactate Cream [Lac-Hydrin 1 applic TOPICAL DAILY 09/27/16 05/31/23 History 12% Cream] Atorvastatin [Lipitor] 20 mg PO HS 09/27/16 05/31/23 History Calcium Carbonate 2,000 mg PO DAILY 09/27/16 05/31/23 History Pantoprazole Sodium 40 mg PO BID 09/27/16 05/31/23 History dilTIAZem HCL [dilTIAZem HCL 24Hr 180 mg PO DAILY 09/27/16 05/31/23 History ER ([place])] Cholecalciferol [Vitamin D3 (25 50 mcg PO DAILY 07/17/21 05/31/23 History Mcg = 1000 Iu)] Lidocaine 5% Patch [Lidoderm 5% 1 patch TOPICAL DAILY 07/17/21 05/31/23 History Patch] Meclizine [Antivert] 12.5 mg PO BID PRN 07/17/21 05/31/23 History FLUoxetine HCL [PROzac] 40 mg PO DAILY 05/31/23 05/31/23 History Allergies Allergy/AdvReac Type Severity Reaction Status Date / Time Fish Containing Products Allergy Unknown Verified 05/31/23 17:36 Iodine and Iodide Containing Allergy Unknown Verified 05/31/23 17:36 Produc Physical Exam Vitals: Vital Signs Temp Pulse Resp BP Pulse Ox 05/31/23 21:32 69 16 138/92 96 05/31/23 20:17 86 18 146/88 98 05/31/23 16:52 78 20 151/88 99 05/31/23 15:17 98.2 F 81 16 115/64 96 Intake and Output 05/31/23 05/31/23 06/01/23 14:59 22:59 06:59 Other: Weight 55.792 kg Results CBC & Chem 7: 05/31/23 15:14 05/31/23 15:14 Labs: Abnormal Lab Results - Last 24 Hours (Table) 05/31/23 Range/Units 15:14 BUN 24 H (7-17) mg/dL Creatinine 1.13 H (0.52-1.04) mg/dL Glucose 111 H (74-99) mg/dL AST 92 H (14-36) U/L ALT 48 H (4-34) U/L Assessment and Plan Assessment: 88-year-old female with hypertension hyperlipidemia she gets a visiting nurse however she has been having repeated nausea vomiting over the past 5 days and getting worse for which her family brought her in for evaluation today with anticipated length of stay less than 2 midnights Generalized weakness with recurrent falls Fall precautions Neurochecks IV fluid hydration with normal saline status post 1 L bolus continue normal saline 75 cc/h Follow-up renal function patient requires saliva testing Monitor vital signs Monitor cardiac CKD 3 Renal function showing sodium 140 potassium 4.1 BUN 24 creatinine 1.13 Avoid nephrotoxic meds Very slightly mild elevated liver enzymes continue to monitor Check C. difficile Check stool cultures Full code DVT prophylaxis heparin subcu 3 times daily
[2023-06-01] MEDS: DILTIAZEM CD 180 MG CAP.ER.24H PO SCH (09:07)
[2023-06-01] MEDS: PANTOPRAZOLE 40 MG TABLET PO SCH (09:07)
[2023-06-01] MEDS: FLUoxetine HCL 20 MG CAP PO SCH (09:07)
--- NOTE | 2023-06-01 17:01 | P.PN ---
Subjective Progress Note Date: 06/01/23 Hospital course: Patient is a pleasant 88-year-old female with a past medical history of CAD status post previous GA and third-degree heart block status post permanent pacemaker placement, hypertension, hyperlipidemia, and bladder cancer. She presented to the emergency department on the evening of 05/31/2023 with a chief complaint of intractable nausea, vomiting, and diarrhea x 5 days. She denied having any hematemesis, hematochezia, or melena and denied experiencing any abdominal pain/discomfort, fevers or chills. She underwent evaluation in the emergency department. Upon arrival vital signs revealed blood pressure 115/64, heart rate 81, respiratory rate 16, temp 98.2 F, and SpO2 of 96% on room air. Labs were completed and reviewed. CBC unremarkable. BMP showing acute kidney injury with BUN of 24, creatinine 1.13, GFR 43 with baseline creatinine of 0.7. Blood glucose was 111. Lactic acid normal findings at 1.5. Liver profile showing elevated AST of 92 and ALT of 48. Amylase and lipase normal findings. Patient was admitted under our services to observation unit for dehydration and weakness. Physical exam: Patient seen and fully evaluated at bedside. Patient currently alert and oriented to person, place, time, and situation. Per documentation in chart patient does have a reported history of dementia but currently remains alert and oriented x 4. Patient reports persistent diarrhea remains throughout the night. She denies any further episodes of nausea or vomiting overnight or this morning. Patient adamantly denies having any abdominal pain or discomfort, she remains afebrile and is tolerating oral intake. Vital signs reviewed and stable. General: Nontoxic, no distress and appears stated age. Thin build, frail Derm: Skin warm and dry, normal coloration for ethnicity. Head: Atraumatic, normocephalic and symmetric. Eyes: EOMs intact, no lid lag, and anicteric sclera Mouth: no lip lesions, mucus membranes moist Cardiovascular: regular rate and rhythm with normal S1S2, systolic murmur, positive posterior tibial pulses bilaterally, and cap refill < 2 seconds. Lungs: Respirations even, regular, and unlabored on room air. Lungs CTA bilaterally, no rhonchi, no rales, no wheezing, and no accessory muscle usage. Abdominal: soft, nondistended abdomen nontender to palpation in all 4 quadrants, no guarding, no appreciable organomegaly Ext: ROM intact. No gross muscle atrophy, no edema, no contractures Neuro: Speech clear, face symmetrical and CN II-XII grossly intact with no noted focal neuro deficits Psych: Alert and oriented to person, place, time, and situation. Appropriate and pleasant affect. Assessment and Plan of Care: Dehydration secondary to persistant N/V/D Generalized weakness with recurrent falls Acute kidney injury Elevated liver enzymes, -Fall precautions -C. difficile negative awaiting stool cultures -Continue gentle IV fluid hydration with normal saline at 75 cc/h -Follow-up with morning labs to evaluate renal function and monitor for improvement of elevated liver enzymes. -Monitor vital signs -Telemetry monitoring -Physical therapy consulted. -GI prophylaxis with Protonix 40 mg twice daily. 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 -DVT prophylaxis with Lovenox. Data and imaging reviewed: -Labs were completed and reviewed. CBC unremarkable. BMP showing acute kidney injury with BUN of 24, creatinine 1.13, GFR 43 with baseline creatinine of 0.7. Blood glucose was 111. Lactic acid normal findings at 1.5. Liver profile showing elevated AST of 92 and ALT of 48. Amylase and lipase normal findings. -Vital signs reviewed. Blood pressure 144/77, heart rate 64, respiratory rate 18, temp 98.7 F, and SpO2 96% on room air. CODE STATUS: Full code DVT prophylaxis: Lovenox Anticipated discharge date: Clinical course to determine, likely 24 to [address]: Return home with home care versus SNF Patient was seen independently by Nurse Pracitioner. This document was prepared using [employer] dictation software. Please allow for errors in surveillance manager, while rare they do occur. I reviewed the documentation as provided by the [facility] above, who is the original author of this note. I agree with the documented assessment and plan, with the following changes: none Objective - Vital Signs Vital signs: Vital Signs Temp 98.0 F 06/01/23 04:00 Pulse 64 06/01/23 06:02 Resp 18 06/01/23 06:02 BP 146/76 06/01/23 07:54 Pulse Ox 96 06/01/23 06:02 FiO2 Intake & Output 05/31/23 06/01/23 06/01/23 18:59 06:59 18:59 Output Total 100 Balance -100 Weight 55.792 kg Output: Urine 100 Other: # Bowel Movements 3 - Labs CBC & Chem 7: 06/02/23 07:24 06/02/23 07:24 Labs: Abnormal Lab Results - Last 24 Hours (Table) 05/31/23 Range/Units 15:14 BUN 24 H (7-17) mg/dL Creatinine 1.13 H (0.52-1.04) mg/dL Glucose 111 H (74-99) mg/dL AST 92 H (14-36) U/L ALT 48 H (4-34) U/L
[2023-06-01] MEDS: LIDOCAINE 4% PATCH TOPICAL SCH (18:37)
[2023-06-01 19:38] LABS: Appearance,Urine Turbid (Clear); Bacteria,Urine Moderate /hpf; Bilirubin,Urine Negative (Negative); Blood,Urine Large (Negative); Color,Urine Yellow; Glucose,Urine (UA) Negative (Negative); Ketones,Urine Negative (Negative); Leukocyte Esterase,Urine Large (Negative); Mucus,Urine Moderate /hpf; Nitrite,Urine Positive (Negative); PH, Urine 5.5 (5.0-8.0); Protein,Urine 1+ (Negative); RBC,Urine >182 /hpf (0-5); Squamous Epithelial Cell,Urine 13 /hpf (0-4); Urobilinogen,Urine <2.0 mg/dL (<2.0); WBC,Urine >182 /hpf (0-5)
[2023-06-01] MEDS: ATORVASTATIN 20 MG TAB PO SCH (20:44)
[2023-06-02] MEDS: CHOLECALCIFEROL 25 MCG (1000 IU) TABLET PO SCH (09:04)
[2023-06-02] MEDS: CALCIUM CARBONATE 500 MG CHEWABLE PO SCH (09:04)
[2023-06-02] MEDS: ENOXAPARIN 30 MG/0.3 ML SYRINGE SQ SCH (09:04)
[2023-06-02] MEDS: MECLIZINE 12.5 MG TAB PO PRN (10:27)
[2023-06-02 11:16] LABS: HCT 35.4 % (37.2-46.3); HGB 11.5 g/dL (12.0-15.0); MCH 28.5 pg (27.0-32.0); MCHC 32.5 g/dL (32.0-37.0); MCV 87.8 FL (80.0-97.0); Mean Platelet Volume 9.9 FL (9.5-12.2); NRBC Per 100 WBC 0 X 10*3/uL (0.00-0.01); Platelet Count 220 X 10*3/uL (140-440); RBC 4.03 X 10*6/uL (4.10-5.20); WBC 7.09 X 10*3/uL (4.50-10.00)
[2023-06-02 11:21] LABS: ALT 30 U/L (8-44); AST 45 U/L (13-35); Albumin 3.2 g/dL (3.8-4.9); Albumin/Globulin Ratio 1.14 Ratio (1.60-3.17); Alkaline Phosphatase 100 U/L (41-126); BUN/Creat Ratio 14.78 Ratio (12.00-20.00); Blood Urea Nitrogen 13.3 mg/dL (9.0-27.0); Calcium 8.3 mg/dL (8.7-10.3); Carbon Dioxide 21.6 mmol/L (21.6-31.8); Chloride 108 mmol/L (96-109); Globulin 2.8 g/dL (1.6-3.3); Glucose 95 mg/dL (70-110); Magnesium 1.6 mg/dL (1.5-2.4); Potassium 3.6 mmol/L (3.5-5.5); Sodium 139 mmol/L (135-145); Total Bilirubin 0.3 mg/dL (0.3-1.2)
[2023-06-02 11:25] VITALS: BMI 19.8
--- NOTE | 2023-06-02 13:28 | P.PN ---
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 She presented to the emergency department on the evening of 05/31/2023 with a chief complaint of intractable nausea, vomiting, and diarrhea x 5 days. She denied having any hematemesis, hematochezia, or melena and denied experiencing any abdominal pain/discomfort, fevers or chills. She underwent evaluation in the emergency department. Upon arrival vital signs revealed blood pressure 115/64, heart rate 81, respiratory rate 16, temp 98.2 F, and SpO2 of 96% on room air. Labs were completed and reviewed. CBC unremarkable. BMP showing acute kidney injury with BUN of 24, creatinine 1.13, GFR 43 with baseline creatinine of 0.7. Blood glucose was 111. Lactic acid normal findings at 1.5. Liver profile showing elevated AST of 92 and ALT of 48. Amylase and lipase normal findings. Patient was admitted under our services to observation unit for dehydration and weakness. Subjective: No new complaints today. Denies diarrhea, abd pain, fevers, chills. Physical exam: Gen: In NAD, non-toxic HEENT: normocephalic, atraumatic, hearing acuity is intant, mucous membranes moist CVS: perfusing all extremities well, no pitting edema, Respiratory: symmetric chest expansion, no accessory muscle use, GI: soft, NTTP, ND, : no suprapubic tenderness, no CVA tenderness MSK/Derm: no rashes, cyanosis Neuro: CN II-XII intact, no motor weakness, Psych: cooperative, euthymic mood, judgment and insight is intact Assessment and Plan of Care: Dehydration secondary to persistant N/V/D Generalized weakness with recurrent falls Acute kidney injury Elevated liver enzymes, -Fall precautions -C. difficile negative awaiting stool cultures -Continue gentle IV fluid hydration with normal saline at 75 cc/h -Follow-up with morning labs to evaluate renal function and monitor for improvement of elevated liver enzymes. -Monitor vital signs -Telemetry monitoring -Physical therapy consulted. -GI prophylaxis with Protonix 40 mg twice daily. 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 -DVT prophylaxis with Lovenox. Data and imaging reviewed: -Labs were completed and reviewed. CBC unremarkable. BMP showing acute kidney injury with BUN of 24, creatinine 1.13, GFR 43 with baseline creatinine of 0.7. Blood glucose was 111. Lactic acid normal findings at 1.5. Liver profile showing elevated AST of 92 and ALT of 48. Amylase and lipase normal findings. -Vital signs reviewed. Blood pressure 144/77, heart rate 64, respiratory rate 18, temp 98.7 F, and SpO2 96% on room air. CODE STATUS: Full code DVT prophylaxis: Lovenox Anticipated discharge date: Clinical course to determine, likely 24 to [address]: Return home with home care versus SNF This document was prepared using [employer] dictation software. Please allow for errors in cork insulator, while rare they do occur. Objective - Vital Signs Vital signs: Vital Signs Temp 98.1 F 06/02/23 07:00 Pulse 65 06/02/23 07:00 Resp 15 06/02/23 07:00 BP 131/73 06/02/23 07:00 Pulse Ox 96 06/02/23 07:00 FiO2 Intake & Output 06/01/23 06/02/23 06/02/23 18:59 06:59 18:59 Weight 55.792 kg 55.792 kg Other: Voiding Method Diaper Diaper # Voids 1 1 # Bowel Movements 1 1 - Labs CBC & Chem 7: 06/02/23 07:24 06/02/23 07:24 Labs: Abnormal Lab Results - Last 24 Hours (Table) 06/01/23 06/02/23 06/02/23 Range/Units 19:00 07:24 07:24 RBC 4.03 L (4.10-5.20) X 10*6/uL Hgb 11.5 L (12.0-15.0) g/dL Hct 35.4 L (37.2-46.3) % Calcium 8.3 L (8.7-10.3) mg/dL AST 45 H (13-35) U/L Total Protein 6.0 L (6.2-8.2) g/dL Albumin 3.2 L (3.8-4.9) g/dL Albumin/Globulin Ratio 1.14 L (1.60-3.17) Ratio Urine Appearance Turbid H (Clear) Urine Protein 1+ H (Negative) Urine Blood Large H (Negative) Urine Nitrite Positive H (Negative) Ur Leukocyte Esterase Large H (Negative) Urine RBC >182 H (0-5) /hpf Urine WBC >182 H (0-5) /hpf Urine WBC Clumps Many H (None) /hpf Ur Squamous Epith Cells 13 H (0-4) /hpf Urine Bacteria Moderate H (None) /hpf Urine Mucus Moderate H (None) /hpf
--- NOTE | 2023-06-03 12:07 | P.DS ---
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 She presented to the emergency department on the evening of 05/31/2023 with a chief complaint of intractable nausea, vomiting, and diarrhea x 5 days. She denied having any hematemesis, hematochezia, or melena and denied experiencing any abdominal pain/discomfort, fevers or chills. She underwent evaluation in the emergency department. Upon arrival vital signs revealed blood pressure 115/64, heart rate 81, respiratory rate 16, temp 98.2 F, and SpO2 of 96% on room air. Labs were completed and reviewed. CBC unremarkable. BMP showing acute kidney injury with BUN of 24, creatinine 1.13, GFR 43 with baseline creatinine of 0.7. Blood glucose was 111. Lactic acid normal findings at 1.5. Liver profile showing elevated AST of 92 and ALT of 48. Amylase and lipase normal findings. Patient was admitted under our services to observation unit for dehydration and weakness. Pt was treated with IVF and noted to have improvement in her symptoms of nausea, vomiting. She was tolerating a diet and had no complaints of abd pain. Hep A/B/C were non-reactive. Discharged home with home care services, she refused rehab despite PT/OT eval/recs. Pt will f/u with PCP. Physical exam: Gen: In NAD, non-toxic HEENT: normocephalic, atraumatic, hearing acuity is intant, mucous membranes moist CVS: perfusing all extremities well, no pitting edema, Respiratory: symmetric chest expansion, no accessory muscle use, GI: soft, NTTP, ND, : no suprapubic tenderness, no CVA tenderness MSK/Derm: no rashes, cyanosis Neuro: CN II-XII intact, no motor weakness, Psych: cooperative, euthymic mood, judgment and insight is intact Patient Condition at Discharge: Good Plan - Discharge Summary Discharge Rx Participant: No New Discharge Prescriptions: New Acetaminophen Tab [Tylenol] 650 mg PO Q6HR PRN tab PRN Reason: Mild Pain Or Fever > 100.5 Continue Calcium Carbonate 2,000 mg PO DAILY Pantoprazole Sodium 40 mg PO BID dilTIAZem HCL [dilTIAZem HCL 24Hr ER (LA)] 180 mg PO DAILY Atorvastatin [Lipitor] 20 mg PO HS Ammonium Lactate Cream [Lac-Hydrin 12% Cream] 1 applic TOPICAL DAILY Meclizine [Antivert] 12.5 mg PO BID PRN PRN Reason: DIZZINESS Cholecalciferol [Vitamin D3 (25 Mcg = 1000 Iu)] 50 mcg PO DAILY Lidocaine 5% Patch [Lidoderm 5% Patch] 1 patch TOPICAL DAILY FLUoxetine HCL [PROzac] 40 mg PO DAILY Discharge Medication List Ammonium Lactate Cream [Lac-Hydrin 12% Cream] 1 applic TOPICAL DAILY 09/27/16 [History] Atorvastatin [Lipitor] 20 mg PO HS 09/27/16 [History] Calcium Carbonate 2,000 mg PO DAILY 09/27/16 [History] Pantoprazole Sodium 40 mg PO BID 09/27/16 [History] dilTIAZem HCL [dilTIAZem HCL 24Hr ER ([place])] 180 mg PO DAILY 09/27/16 [History] Cholecalciferol [Vitamin D3 (25 Mcg = 1000 Iu)] 50 mcg PO DAILY 07/17/21 [History] Lidocaine 5% Patch [Lidoderm 5% Patch] 1 patch TOPICAL DAILY 07/17/21 [History] Meclizine [Antivert] 12.5 mg PO BID PRN 07/17/21 [History] FLUoxetine HCL [PROzac] 40 mg PO DAILY 05/31/23 [History] Acetaminophen Tab [Tylenol] 650 mg PO Q6HR PRN tab 06/03/23 [Rx] Follow up Appointment(s)/Referral(s): None,Stated [REFERRING] - 1-2 days [facility],Clinic [Primary Care Provider] - 1-2 Days (Call if homecare provider does not contact you withiin 24 hours of discharge. ) Discharge Disposition: HOME WITH HOME HEALTH SERVICES
[2023-06-03] MEDS: ACETAMINOPHEN TAB 325 MG TAB PO PRN (20:57)
--- NOTE | 2023-06-04 10:18 | P.PN ---
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 She presented to the emergency department on the evening of 05/31/2023 with a chief complaint of intractable nausea, vomiting, and diarrhea x 5 days. She denied having any hematemesis, hematochezia, or melena and denied experiencing any abdominal pain/discomfort, fevers or chills. She underwent evaluation in the emergency department. Upon arrival vital signs revealed blood pressure 115/64, heart rate 81, respiratory rate 16, temp 98.2 F, and SpO2 of 96% on room air. Labs were completed and reviewed. CBC unremarkable. BMP showing acute kidney injury with BUN of 24, creatinine 1.13, GFR 43 with baseline creatinine of 0.7. Blood glucose was 111. Lactic acid normal findings at 1.5. Liver profile showing elevated AST of 92 and ALT of 48. Amylase and lipase normal findings. Patient was admitted under our services to observation unit for dehydration and weakness. Subjective: No new complaints today. Denies diarrhea, abd pain, fevers, chills. Placement pending. Physical exam: Gen: In NAD, non-toxic HEENT: normocephalic, atraumatic, hearing acuity is intant, mucous membranes moist CVS: perfusing all extremities well, no pitting edema, Respiratory: symmetric chest expansion, no accessory muscle use, GI: soft, NTTP, ND, : no suprapubic tenderness, no CVA tenderness MSK/Derm: no rashes, cyanosis Neuro: CN II-XII intact, no motor weakness, Psych: cooperative, euthymic mood, judgment and insight is intact Assessment and Plan of Care: Dehydration secondary to persistant N/V/D Generalized weakness with recurrent falls Acute kidney injury Elevated liver enzymes, -Fall precautions -C. difficile negative awaiting stool cultures -Continue gentle IV fluid hydration with normal saline at 75 cc/h -Follow-up with morning labs to evaluate renal function and monitor for improvement of elevated liver enzymes. -Monitor vital signs -Telemetry monitoring -Physical therapy consulted. -GI prophylaxis with Protonix 40 mg twice daily. 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 -DVT prophylaxis with Lovenox. Data and imaging reviewed: -Labs were completed and reviewed. CBC unremarkable. BMP showing acute kidney injury with BUN of 24, creatinine 1.13, GFR 43 with baseline creatinine of 0.7. Blood glucose was 111. Lactic acid normal findings at 1.5. Liver profile showing elevated AST of 92 and ALT of 48. Amylase and lipase normal findings. -Vital signs reviewed. Blood pressure 144/77, heart rate 64, respiratory rate 18, temp 98.7 F, and SpO2 96% on room air. CODE STATUS: Full code DVT prophylaxis: Lovenox Anticipated discharge date: Clinical course to determine, likely 24 to [address]: Return home with home care versus SNF This document was prepared using [employer] dictation software. Please allow for errors in student counsellor, while rare they do occur. Objective - Vital Signs Vital signs: Vital Signs Temp 97.7 F 06/04/23 06:47 Pulse 62 06/04/23 06:47 Resp 18 06/04/23 06:47 BP 133/73 06/04/23 06:47 Pulse Ox 97 06/04/23 06:47 FiO2 Intake & Output 06/03/23 06/04/23 06/04/23 18:59 06:59 18:59 Output Total 1999 -1999 Output: Urine 1999 Other: Voiding Method Diaper Diaper Incontinent External Catheter # Voids 3 # Bowel Movements 1 1 - Labs CBC & Chem 7: 06/02/23 07:24 06/02/23 07:24
--- NOTE | 2023-06-05 08:13 | P.PN ---
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 She presented to the emergency department on the evening of 05/31/2023 with a chief complaint of intractable nausea, vomiting, and diarrhea x 5 days. She denied having any hematemesis, hematochezia, or melena and denied experiencing any abdominal pain/discomfort, fevers or chills. She underwent evaluation in the emergency department. Upon arrival vital signs revealed blood pressure 115/64, heart rate 81, respiratory rate 16, temp 98.2 F, and SpO2 of 96% on room air. Labs were completed and reviewed. CBC unremarkable. BMP showing acute kidney injury with BUN of 24, creatinine 1.13, GFR 43 with baseline creatinine of 0.7. Blood glucose was 111. Lactic acid normal findings at 1.5. Liver profile showing elevated AST of 92 and ALT of 48. Amylase and lipase normal findings. Patient was admitted under our services to observation unit for dehydration and weakness. Subjective: No new complaints today. Denies diarrhea, abd pain, fevers, chills. Placement pending. Physical exam: Gen: In NAD, non-toxic HEENT: normocephalic, atraumatic, hearing acuity is intant, mucous membranes moist CVS: perfusing all extremities well, no pitting edema, Respiratory: symmetric chest expansion, no accessory muscle use, GI: soft, NTTP, ND, : no suprapubic tenderness, no CVA tenderness MSK/Derm: no rashes, cyanosis Neuro: CN II-XII intact, no motor weakness, Psych: cooperative, euthymic mood, judgment and insight is intact Assessment and Plan of Care: Dehydration secondary to persistant N/V/D Generalized weakness with recurrent falls Acute kidney injury Elevated liver enzymes, -Fall precautions -C. difficile negative awaiting stool cultures -Continue gentle IV fluid hydration with normal saline at 75 cc/h -Follow-up with morning labs to evaluate renal function and monitor for improvement of elevated liver enzymes. -Monitor vital signs -Telemetry monitoring -Physical therapy consulted. -GI prophylaxis with Protonix 40 mg twice daily. 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 -DVT prophylaxis with Lovenox. Data and imaging reviewed: -Labs were completed and reviewed. CBC unremarkable. BMP showing acute kidney injury with BUN of 24, creatinine 1.13, GFR 43 with baseline creatinine of 0.7. Blood glucose was 111. Lactic acid normal findings at 1.5. Liver profile showing elevated AST of 92 and ALT of 48. Amylase and lipase normal findings. -Vital signs reviewed. Blood pressure 144/77, heart rate 64, respiratory rate 18, temp 98.7 F, and SpO2 96% on room air. CODE STATUS: Full code DVT prophylaxis: Lovenox Anticipated discharge date: Clinical course to determine, likely 24 to [address]: Return home with home care versus SNF This document was prepared using [employer] dictation software. Please allow for errors in hotbed operator, while rare they do occur. Objective - Vital Signs Vital signs: Vital Signs Temp 98.6 F 06/05/23 07:03 Pulse 62 06/05/23 07:03 Resp 17 06/05/23 07:03 BP 116/65 06/05/23 07:03 Pulse Ox 97 06/05/23 07:03 FiO2 Intake & Output 06/04/23 06/05/23 06/05/23 18:59 06:59 18:59 Intake Total 480 Output Total 400 400 Balance 80 -400 Intake: Intake, IV Titration 0 Amount Sodium Chloride 0.9% 1, 0 000 ml @ 75 mls/hr IV . [id number] [facility] Rx#:[id number] Oral 480 Output: Urine 400 400 Other: Voiding Method Incontinent Diaper Incontinent External Catheter # Bowel Movements 1 - Labs CBC & Chem 7: 06/02/23 07:24 06/02/23 07:24
[2023-06-06 08:20] VITALS: PULSE 70
--- NOTE | 2023-06-06 11:59 | P.DS ---
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 She presented to the emergency department on the evening of 05/31/2023 with a chief complaint of intractable nausea, vomiting, and diarrhea x 5 days. She denied having any hematemesis, hematochezia, or melena and denied experiencing any abdominal pain/discomfort, fevers or chills. She underwent evaluation in the emergency department. Upon arrival vital signs revealed blood pressure 115/64, heart rate 81, respiratory rate 16, temp 98.2 F, and SpO2 of 96% on room air. Labs were completed and reviewed. CBC unremarkable. BMP showing acute kidney injury with BUN of 24, creatinine 1.13, GFR 43 with baseline creatinine of 0.7. Blood glucose was 111. Lactic acid normal findings at 1.5. Liver profile showing elevated AST of 92 and ALT of 48. Amylase and lipase normal findings. Patient was admitted under our services to observation unit for dehydration and weakness. Pt was treated with IVF and noted to have improvement in her symptoms of nausea, vomiting. She was tolerating a diet and had no complaints of abd pain. Hep A/B/C were non-reactive. Originally planned on discharge home with home care services because she refused rehab despite PT/OT eval/recs, however, upon further discussion with care team and family, patient was amenable to rehab, and was d/c'd to [facility]. Pt will f/u with PCP. Physical exam: Gen: In NAD, non-toxic HEENT: normocephalic, atraumatic, hearing acuity is intant, mucous membranes moist CVS: perfusing all extremities well, no pitting edema, Respiratory: symmetric chest expansion, no accessory muscle use, GI: soft, NTTP, ND, : no suprapubic tenderness, no CVA tenderness MSK/Derm: no rashes, cyanosis Neuro: CN II-XII intact, no motor weakness, Psych: cooperative, euthymic mood, judgment and insight is intact Patient Condition at Discharge: Good Plan - Discharge Summary Discharge Rx Participant: No New Discharge Prescriptions: New Acetaminophen Tab [Tylenol] 650 mg PO Q6HR PRN tab PRN Reason: Mild Pain Or Fever > 100.5 Continue Calcium Carbonate 2,000 mg PO DAILY Pantoprazole Sodium 40 mg PO BID dilTIAZem HCL [dilTIAZem HCL 24Hr ER (LA)] 180 mg PO DAILY Atorvastatin [Lipitor] 20 mg PO HS Ammonium Lactate Cream [Lac-Hydrin 12% Cream] 1 applic TOPICAL DAILY Meclizine [Antivert] 12.5 mg PO BID PRN PRN Reason: DIZZINESS Cholecalciferol [Vitamin D3 (25 Mcg = 1000 Iu)] 50 mcg PO DAILY Lidocaine 5% Patch [Lidoderm 5% Patch] 1 patch TOPICAL DAILY FLUoxetine HCL [PROzac] 40 mg PO DAILY Discharge Medication List Ammonium Lactate Cream [Lac-Hydrin 12% Cream] 1 applic TOPICAL DAILY 09/27/16 [History] Atorvastatin [Lipitor] 20 mg PO HS 09/27/16 [History] Calcium Carbonate 2,000 mg PO DAILY 09/27/16 [History] Pantoprazole Sodium 40 mg PO BID 09/27/16 [History] dilTIAZem HCL [dilTIAZem HCL 24Hr ER ([place])] 180 mg PO DAILY 09/27/16 [History] Cholecalciferol [Vitamin D3 (25 Mcg = 1000 Iu)] 50 mcg PO DAILY 07/17/21 [History] Lidocaine 5% Patch [Lidoderm 5% Patch] 1 patch TOPICAL DAILY 07/17/21 [History] Meclizine [Antivert] 12.5 mg PO BID PRN 07/17/21 [History] FLUoxetine HCL [PROzac] 40 mg PO DAILY 05/31/23 [History] Acetaminophen Tab [Tylenol] 650 mg PO Q6HR PRN tab 06/03/23 [Rx] Follow up Appointment(s)/Referral(s): None,Stated [REFERRING] - 1-2 days [facility],Clinic [Primary Care Provider] - 1-2 Days (Call if homecare provider does not contact you withiin 24 hours of discharge. ) Discharge Disposition: TRANSFER TO SNF/ECF
[2023-06-06 14:27] VITALS: BP 109/62; RESP 16; TEMP 98.5
== END 2023-06-06 16:17 | DRG 641 ==
LOC: EC 14:25 → 6NMEDSUR 21:22 → OBSVTOIN 21:22 → 6NMEDSUR 06-01 00:09 → 4SSUR 06-01 23:23
PROVIDERS: ADMIT Internal Medicine; ATTEND Internal Medicine
DX: E86.0 Dehydration (principal); N17.9 Acute kidney failure, unspecified; I12.9 Hypertensive chronic kidney disease with stage 1 through stage 4 chronic kidney disease, or unspecified chronic kidney disease; F03.90 Unspecified dementia, unspecified severity, without behavioral disturbance, psychotic disturbance, mood disturbance, and anxiety; E78.5 Hyperlipidemia, unspecified; N18.30 Chronic kidney disease, stage 3 unspecified; R29.6 Repeated falls; Z95.0 Presence of cardiac pacemaker; R11.2 Nausea with vomiting, unspecified; E11.22 Type 2 diabetes mellitus with diabetic chronic kidney disease; E11.649 Type 2 diabetes mellitus with hypoglycemia without coma; I25.10 Atherosclerotic heart disease of native coronary artery without angina pectoris; I25.2 Old myocardial infarction; R74.01 Elevation of levels of liver transaminase levels; Z79.899 Other long term (current) drug therapy; Z85.841 Personal history of malignant neoplasm of brain; Z82.49 Family history of ischemic heart disease and other diseases of the circulatory system; Z85.51 Personal history of malignant neoplasm of bladder; Z90.710 Acquired absence of both cervix and uterus; Z91.013 Allergy to seafood; Z91.041 Radiographic dye allergy status; Z91.81 History of falling
CPT/HCPCS: 36415; 80053; 81001; 82150; 83605; 83690; 83735; 85025; 85027; 87324; 87636; 96360; 96361; 99285

== ENCOUNTER 2023-07-01 21:09 | Inpatient (IN) | payer OTHER, MEDICARE ==
--- NOTE | 2023-07-01 21:22 | ED ---
General Adult HPI - General Stated complaint: Possible sepsis Time Seen by Provider: 07/01/23 21:11 - History of Present Illness Initial comments: Dictation was produced using [employer] dictation software. please excuse any grammatical, word or spelling errors. Chief Complaint: 88-year-old female presents to the ER for altered mental status and found down at home History of Present Illness: Patient is 88-year-old female. History present was obtained from EMS. EMS brought patient in from home. It is unclear when patient was last normal. Daughter is allegedly on her way to the emergency department to provide more history. According to EMS patient was found down at home on the ground. She was alert and oriented x 1. Apparently at her baseline she ambulates with a walker. Is unclear what patient's normal mentation is en route to the emergency department her mentation improved to ANO x 2. Patient has no complaints. Patient however is an unreliable historian. Unable to obtain detailed ROS secondary to patient's mental status - Related Data Home Medications Medication Instructions Recorded Confirmed Ammonium Lactate Cream [Lac-Hydrin 1 applic TOPICAL DAILY 09/27/16 05/31/23 12% Cream] Atorvastatin [Lipitor] 20 mg PO HS 09/27/16 05/31/23 Calcium Carbonate 2,000 mg PO DAILY 09/27/16 05/31/23 Pantoprazole Sodium 40 mg PO BID 09/27/16 05/31/23 dilTIAZem HCL [dilTIAZem HCL 24Hr 180 mg PO DAILY 09/27/16 05/31/23 ER ([place])] Cholecalciferol [Vitamin D3 (25 50 mcg PO DAILY 07/17/21 05/31/23 Mcg = 1000 Iu)] Lidocaine 5% Patch [Lidoderm 5% 1 patch TOPICAL DAILY 07/17/21 05/31/23 Patch] Meclizine [Antivert] 12.5 mg PO BID PRN 07/17/21 05/31/23 FLUoxetine HCL [PROzac] 40 mg PO DAILY 05/31/23 05/31/23 Previous Rx's Medication Instructions Recorded Acetaminophen Tab [Tylenol] 650 mg PO Q6HR PRN tab 06/03/23 Allergies Allergy/AdvReac Type Severity Reaction Status Date / Time Fish Containing Products Allergy Unknown Verified 05/31/23 17:36 Iodine and Iodide Containing Allergy Unknown Verified 05/31/23 17:36 Produc Review of Systems ROS Statement: Those systems with pertinent positive or pertinent negative responses have been documented in the HPI. ROS Other: All systems not noted in ROS Statement are negative. Past Medical History Past Medical History: Cancer, Hyperlipidemia, Hypertension, Myocardial Infarction ([place]) Additional Past Medical History / Comment(s): brain CA, bladder CA, heart block Last Myocardial Infarction Date:: pt can't remember History of Any Multi-Drug Resistant Organisms: None Reported Past Surgical History: Back Surgery, Hysterectomy, Joint Replacement, Pacemaker Additional Past Surgical History / Comment(s): ablation Past Anesthesia/Blood Transfusion Reactions: No Reported Reaction Type of Cardiac Device: Unknown Device Placement Date:: 2007 Past Psychological History: No Psychological Hx Reported Smoking Status: Never smoker Past Alcohol Use History: None Reported Past Drug Use History: None Reported - Past Family History Mother Family Medical History: Myocardial Infarction ([place]) Father Family Medical History: Cancer General Exam - General Exam Comments Initial Comments: PHYSICAL EXAM: General Impression: Alert and oriented x2, not in acute distress HEENT: Normocephalic atraumatic, extra-ocular movements intact, pupils equal and reactive to light bilaterally, mucous membranes moist. Cardiovascular: Heart regular rate and rhythm Chest: Able to complete full sentences, no retractions, no tachypnea Abdomen: abdomen soft, non-tender, non-distended, no organomegaly Musculoskeletal: Pulses present and equal in all extremities, no peripheral edema Motor: no focal deficits noted Neurological: CN II-XII grossly intact, reported following instructions, weak ness to all extremities, no facial asymmetry Skin: Intact with no visualized rashes Psych: Normal affect and mood Course Vital Signs 07/01/23 07/01/23 07/02/23 21:25 22:49 00:00 Temperature 101.6 F H 100.8 F H Pulse Rate 70 70 70 Respiratory 22 16 22 Rate Blood Pressure 154/75 147/78 153/78 O2 Sat by Pulse 95 97 96 Oximetry - Reevaluation(s) Reevaluation #1: 07/01/23 21:25 Patient seen and evaluated immediately in room #2 upon arrival. Patient vital signs shows temperature of 101. Patient has nonfocal altered mental status. There is also suspicion of rhabdomyolysis given that she was found on the ground for unknown period of time. Reevaluation #2: 07/02/23 00:59Infection was diagnosed at 12:57 PM when I was given the results for urinalysis. Patient has normal lactic acid level along with normal blood pressure. No concern for severe sepsis at this time. Patient did have a temperature initially one 1.6. She did not have any tachypnea or tachycardia.. White blood cell count is 11. Medical Decision Making - Medical Decision Making Was pt. sent in by a medical professional or institution (, PA, CANNED FOOD RECONDITIONING INSPECTOR, urgent care, hospital, or penitentiary...) When possible be specific @ -No Did you speak to anyone other than the patient for history (EMS, parent, family, police, friend...)? What history was obtained from this source @ -Above Did you review nursing and triage notes (agree or disagree)? Why? @ -I reviewed and agree with nursing and triage notes Were old charts reviewed (outside hosp., previous admission, EMS record, old EKG, old radiological studies, urgent care reports/EKG's, penitentiary records)? Report findings @ -No old charts were reviewed Differential Diagnosis (chest pain, altered mental status, abdominal pain women, abdominal pain men, vaginal bleeding, musculoskeletal, weakness, fever, dyspnea, syncope, headache, dizziness, GI bleed, back pain, seizure, CVA, palpatations, mental health)? @ -Differential Fever: Pneumonia, viral URI, endocarditis, myocarditis, pericarditis, otitis, sinusitis, peritonsillar Abscess, retropharyngeal Abscess, epiglottitis, peritonitis, appendicitis, Laura cystitis, diverticulitis, hepatitis, colitis, UTI, PID, TOA, pyelonephritis, prostatitis, epididymitis, meningitis, e ncephalitis, pulmonary embolism, CVA, thyroid storm, pancreatitis, adrenal crisis, cavernous sinus thrombosis, this is not meant to be an all-inclusive list. EKG interpreted by me (3pts min.). @ -See above X-rays interpreted by me (1pt min.). @ -This x-ray shows lung infiltrates, pelvis x-ray is unremarkable for acute traumatic processes CT interpreted by me (1pt min.). @ -CT scan the brain shows no acute processes U/S interpreted by me (1pt. min.). @ -None done What testing was considered but not performed or refused? (CT, X-rays, U/S, labs)? Why? @ -None What meds were considered but not given or refused? Why? @ -None Did you discuss the management of the patient with other professionals (professionals i.e. , PA, CANNED FOOD RECONDITIONING INSPECTOR, lab, RT, psych nurse, social service manager, director of orthopedics, teacher, toxics program officer, telephonic nurse case manager)? Give summary @ -Case discussed with hospitalist for admission Was smoking cessation discussed for >3mins.? @ -No Was critical care preformed (if so, how long)? @ -No Were there social determinants of health that impacted care today? How? (Homelessness, low income, unemployed, alcoholism, drug addiction, transportation, low edu. Level, literacy, decrease access to med. care, halfway, rehab)? @ -No Was there de-escalation of care discussed even if they declined (Discuss DNR or withdrawal of care, Hospice)? DNR status @ -No What co-morbidities impacted this encounter? (DM, HTN, Smoking, COPD, CAD, Cancer, CVA, ARF, Chemo, Hep., AIDS, mental health diagnosis, sleep apnea, morbid obesity)? @ -None Was patient admitted / discharged? Hospital course, mention meds given and route, prescriptions, significant lab abnormalities, going to OR and other pertinent info. @ -88-year-old female brought in from home after being found down. Vital signs upon arrival shows pyrexia one 1.6. Patient not hypotensive. Patient no acute distress at the bedside. Laboratory evaluation obtained. Mild leukocytosis 11.0. Coag panel is negative. Metabolic panel shows no lactic acidosis. Troponin 0.084. Urinalysis positive for UTI. X-ray shows pneumonia. Patient does not need 30 cc/kg bolus given that she has a lactic of less than 2 and no hypotension. Patient given antibiotics. Will be admitted Undiagnosed new problem with uncertain prognosis? @ -No Drug Therapy requiring intensive monitoring for toxicity (Heparin, Nitro, Insulin, Cardizem)? @ -No Were any procedures done? @ -No Diagnosis/symptom? Acute, or Chronic, or Acute on Chronic? Uncomplicated (without systemic symptoms) or Complicated (systemic symptoms)? @ -UTI Side effects of treatment? @ -No Exacerbation, Progression, or Severe Exacerbation? @ -No Poses a threat to life or bodily function? How? (Chest pain, [place], [place], pneumonia, PE, COPD, DKA, ARF, appy, cholecystitis, CVA, Diverticulitis, Homicidal, Suicidal, threat to staff... and all critical care pts) @ -Yes - Lab Data Result diagrams: 07/01/23 21:37 07/01/23 21:37 Lab Results 07/01/23 07/01/23 07/01/23 Range/Units 21:37 21:37 21:37 WBC 11.0 H (3.8-10.6) k/uL RBC 4.14 (3.80-5.40) m/uL Hgb 12.0 (11.4-16.0) gm/dL Hct 37.2 (34.0-46.0) % MCV 89.8 (80.0-100.0) fL MCH 29.0 (25.0-35.0) pg MCHC 32.3 (31.0-37.0) g/dL RDW 13.1 (11.5-15.5) % Plt Count 243 (150-450) k/uL MPV 7.6 Neutrophils % 85 % Lymphocytes % 6 % Monocytes % 7 % Eosinophils % 0 % Basophils % 0 % Neutrophils # 9.4 H (1.3-7.7) k/uL Lymphocytes # 0.7 L (1.0-4.8) k/uL Monocytes # 0.8 (0-1.0) k/uL Eosinophils # 0.0 (0-0.7) k/uL Basophils # 0.0 (0-0.2) k/uL PT (10.0-12.5) sec INR (<1.2) APTT (22.0-30.0) sec Sodium 136 L (137-145) mmol/L Potassium 3.7 (3.5-5.1) mmol/L Chloride 109 H (98-107) mmol/L Carbon Dioxide 21 L (22-30) mmol/L Anion Gap 6 mmol/L BUN 14 (7-17) mg/dL Creatinine 0.55 (0.52-1.04) mg/dL Est GFR (CKD-EPI)AfAm >90 (>60 ml/min/1.73 sqM) Est GFR (CKD-EPI)NonAf 84 (>60 ml/min/1.73 sqM) Glucose 147 H (74-99) mg/dL Plasma Lactic Acid [place] 1.3 (0.7-2.0) mmol/L Calcium 8.0 L (8.4-10.2) mg/dL Total Bilirubin 0.5 (0.2-1.3) mg/dL AST 27 (14-36) U/L ALT 12 (4-34) U/L Alkaline Phosphatase 127 H (38-126) U/L Ammonia <9 (<30) umol/L Creatine Kinase 36 (30-135) U/L Troponin I (0.000-0.034) ng/mL Total Protein 6.0 L (6.3-8.2) g/dL Albumin 2.8 L (3.5-5.0) g/dL Urine Color Urine Appearance (Clear) Urine pH (5.0-8.0) Ur Specific Ponce (1.001-1.035) Urine Protein (Negative) Urine Glucose (UA) (Negative) Urine Ketones (Negative) Urine Blood (Negative) Urine Nitrite (Negative) Urine Bilirubin (Negative) Urine Urobilinogen (<2.0) mg/dL Ur Leukocyte Esterase (Negative) Urine RBC (0-5) /hpf Urine WBC (0-5) /hpf Urine WBC Clumps (None) /hpf Ur Squamous Epith Cells (0-4) /hpf Urine Bacteria (None) /hpf Hyaline Casts (0-2) /lpf Urine Mucus (None) /hpf Influenza Type A (PCR) (Not Detectd) Influenza Type B (PCR) (Not Detectd) RSV (PCR) (Not Detectd) SARS-CoV-2 (PCR) (Not Detectd) 07/01/23 07/01/23 07/01/23 Range/Units 21:37 21:37 21:52 WBC (3.8-10.6) k/uL RBC (3.80-5.40) m/uL Hgb (11.4-16.0) gm/dL Hct (34.0-46.0) % MCV (80.0-100.0) fL MCH (25.0-35.0) pg MCHC (31.0-37.0) g/dL RDW (11.5-15.5) % Plt Count (150-450) k/uL MPV Neutrophils % % Lymphocytes % % Monocytes % % Eosinophils % % Basophils % % Neutrophils # (1.3-7.7) k/uL Lymphocytes # (1.0-4.8) k/uL Monocytes # (0-1.0) k/uL Eosinophils # (0-0.7) k/uL Basophils # (0-0.2) k/uL PT (10.0-12.5) sec INR (<1.2) APTT (22.0-30.0) sec Sodium (137-145) mmol/L Potassium (3.5-5.1) mmol/L Chloride (98-107) mmol/L Carbon Dioxide (22-30) mmol/L Anion Gap mmol/L BUN (7-17) mg/dL Creatinine (0.52-1.04) mg/dL Est GFR (CKD-EPI)AfAm (>60 ml/min/1.73 sqM) Est GFR (CKD-EPI)NonAf (>60 ml/min/1.73 sqM) Glucose (74-99) mg/dL Plasma Lactic Acid [place] (0.7-2.0) mmol/L Calcium (8.4-10.2) mg/dL Total Bilirubin (0.2-1.3) mg/dL AST (14-36) U/L ALT (4-34) U/L Alkaline Phosphatase (38-126) U/L Ammonia (<30) umol/L Creatine Kinase (30-135) U/L Troponin I 0.084 H* (0.000-0.034) ng/mL Total Protein (6.3-8.2) g/dL Albumin (3.5-5.0) g/dL Urine Color Colorless Urine Appearance Cloudy H (Clear) Urine pH 5.0 (5.0-8.0) Ur Specific Ponce 1.014 (1.001-1.035) Urine Protein Trace H (Negative) Urine Glucose (UA) Negative (Negative) Urine Ketones Negative (Negative) Urine Blood Small H (Negative) Urine Nitrite Positive H (Negative) Urine Bilirubin Negative (Negative) Urine Urobilinogen <2.0 (<2.0) mg/dL Ur Leukocyte Esterase Trace H (Negative) Urine RBC 2 (0-5) /hpf Urine WBC 9 H (0-5) /hpf Urine WBC Clumps Rare H (None) /hpf Ur Squamous Epith Cells 1 (0-4) /hpf Urine Bacteria Rare H (None) /hpf Hyaline Casts 1 (0-2) /lpf Urine Mucus Rare H (None) /hpf Influenza Type A (PCR) Not Detected (Not Detectd) Influenza Type B (PCR) Not Detected (Not Detectd) RSV (PCR) Not Detected (Not Detectd) SARS-CoV-2 (PCR) Not Detected (Not Detectd) 07/01/23 Range/Units 22:45 WBC (3.8-10.6) k/uL RBC (3.80-5.40) m/uL Hgb (11.4-16.0) gm/dL Hct (34.0-46.0) % MCV (80.0-100.0) fL MCH (25.0-35.0) pg MCHC (31.0-37.0) g/dL RDW (11.5-15.5) % Plt Count (150-450) k/uL MPV Neutrophils % % Lymphocytes % % Monocytes % % Eosinophils % % Basophils % % Neutrophils # (1.3-7.7) k/uL Lymphocytes # (1.0-4.8) k/uL Monocytes # (0-1.0) k/uL Eosinophils # (0-0.7) k/uL Basophils # (0-0.2) k/uL PT 11.5 (10.0-12.5) sec INR 1.1 (<1.2) APTT 20.1 L (22.0-30.0) sec Sodium (137-145) mmol/L Potassium (3.5-5.1) mmol/L Chloride (98-107) mmol/L Carbon Dioxide (22-30) mmol/L Anion Gap mmol/L BUN (7-17) mg/dL Creatinine (0.52-1.04) mg/dL Est GFR (CKD-EPI)AfAm (>60 ml/min/1.73 sqM) Est GFR (CKD-EPI)NonAf (>60 ml/min/1.73 sqM) Glucose (74-99) mg/dL Plasma Lactic Acid [place] (0.7-2.0) mmol/L Calcium (8.4-10.2) mg/dL Total Bilirubin (0.2-1.3) mg/dL AST (14-36) U/L ALT (4-34) U/L Alkaline Phosphatase (38-126) U/L Ammonia (<30) umol/L Creatine Kinase (30-135) U/L Troponin I (0.000-0.034) ng/mL Total Protein (6.3-8.2) g/dL Albumin (3.5-5.0) g/dL Urine Color Urine Appearance (Clear) Urine pH (5.0-8.0) Ur Specific Ponce (1.001-1.035) Urine Protein (Negative) Urine Glucose (UA) (Negative) Urine Ketones (Negative) Urine Blood (Negative) Urine Nitrite (Negative) Urine Bilirubin (Negative) Urine Urobilinogen (<2.0) mg/dL Ur Leukocyte Esterase (Negative) Urine RBC (0-5) /hpf Urine WBC (0-5) /hpf Urine WBC Clumps (None) /hpf Ur Squamous Epith Cells (0-4) /hpf Urine Bacteria (None) /hpf Hyaline Casts (0-2) /lpf Urine Mucus (None) /hpf Influenza Type A (PCR) (Not Detectd) Influenza Type B (PCR) (Not Detectd) RSV (PCR) (Not Detectd) SARS-CoV-2 (PCR) (Not Detectd) Disposition Clinical Impression: UTI (urinary tract infection) Disposition: ADMITTED IP TO THIS HOSP Condition: Fair Referrals: [facility],Clinic [Primary Care Provider] - 1-2 days Decision Time: 01:26
[2023-07-01 22:04] LABS: Basophils % (A) 0 %; Eosinophils % (A) 0 %; HCT 37.2 % (34.0-46.0); Lymphocytes # (A) 0.7 k/uL (1.0-4.8); Lymphocytes % (A) 6 %; MCHC 32.3 g/dL (31.0-37.0); MCV 89.8 fL (80.0-100.0); Mean Platelet Volume 7.6; Monocytes # (A) 0.8 k/uL (0-1.0); Monocytes % (A) 7 %; Neutrophils # (A) 9.4 k/uL (1.3-7.7); Neutrophils % (A) 85 %; Platelet Count 243 k/uL (150-450); RBC 4.14 m/uL (3.80-5.40); RDW 13.1 % (11.5-15.5)
[2023-07-01 22:24] LABS: Lactic Acid, Venous 1.3 mmol/L (0.7-2.0)
[2023-07-01 22:25] LABS: ALT 12 U/L (4-34); AST 27 U/L (14-36); African American GFR (CKD) >90 (>60 ml/min/1.73 sqM); Albumin 2.8 g/dL (3.5-5.0); Alkaline Phosphatase 127 U/L (38-126); Anion Gap 6 mmol/L; Blood Urea Nitrogen 14 mg/dL (7-17); Carbon Dioxide 21 mmol/L (22-30); Chloride 109 mmol/L (98-107); Creatine Kinase 36 U/L (30-135); Glucose 147 mg/dL (74-99); Non-African American GFR(CKD) 84 (>60 ml/min/1.73 sqM); Potassium 3.7 mmol/L (3.5-5.1); Sodium 136 mmol/L (137-145); Total Bilirubin 0.5 mg/dL (0.2-1.3)
[2023-07-01 23:18] LABS: INR 1.1 (<1.2); Prothrombin Time 11.5 sec (10.0-12.5)
[2023-07-01] MEDS: ACETAMINOPHEN TAB 500 MG TAB PO STA (23:18)
--- NOTE | 2023-07-01 23:23 | CT ---
EXAM: CT Head Without Intravenous Contrast CLINICAL HISTORY: ITS.REASON CT Reason: ams TECHNIQUE: Axial computed tomography images of the head/brain without intravenous contrast. CTDI is 49.2 mGy and DLP is 1154.3 mGy-cm. This CT exam was performed using one or more of the following dose reduction techniques: automated exposure control, adjustment of the mA and/or kV according to patient size, and/or use of iterative reconstruction technique. COMPARISON: No relevant prior studies available. FINDINGS: No acute intracranial hemorrhage. No midline shift or mass effect. Encephalomalacia6 in the RIGHT CUSHION STUFFER territory, consistent with old infarct. Age-related cerebral volume loss. Periventricular and subcortical white matter hypoattenuation, consistent with chronic microangiopathy. The visualized orbits appear grossly unremarkable. The calvarium is intact. Opacified paranasal sinuses. Bilateral maxillary sinus antrostomies. Mastoid air cells are clear. IMPRESSION: No acute intracranial hemorrhage, midline shift, or mass effect. Opacified paranasal sinuses. Bilateral maxillary sinus antrostomies.
[2023-07-01 23:36] LABS: Partial Thromboplastin Time 20.1 sec (22.0-30.0)
--- NOTE | 2023-07-01 23:36 | XR ---
EXAM: XR Chest, 1 View CLINICAL HISTORY: ITS.REASON XR Reason: ams TECHNIQUE: Frontal view of the chest. COMPARISON: No relevant prior studies available. FINDINGS: Lungs: Vascular congestion with more focal pulmonary opacities in the left lung base and right upper lobe. Pleural space: Unremarkable. No pneumothorax. No pleural effusions. Heart: Unremarkable. No cardiomegaly. Mediastinum: Unremarkable. Normal mediastinal contour. Bones/joints: No acute osseous abnormalities. Tubes, lines and devices: Left subclavian dual lead transvenous pacemaker/defibrillator in position.. IMPRESSION: Vascular congestion with more focal pulmonary opacities in the left lung base and right upper lobe.
--- NOTE | 2023-07-01 23:36 | XR ---
EXAM: XR Pelvis, 1 or 2 Views CLINICAL HISTORY: ITS.REASON XR Reason: ams TECHNIQUE: Frontal view of the pelvis. COMPARISON: No relevant prior studies available. FINDINGS: Bones/joints: Internal fixation with compression screws and intramedullary lisa of left intertrochanteric hip fracture with osseous fusion in anatomic position. Soft tissues: Unremarkable. IMPRESSION: No acute osseous abnormality of the pelvis.
[2023-07-02 00:48] LABS: Appearance,Urine Cloudy (Clear); Bacteria,Urine Rare /hpf; Bilirubin,Urine Negative (Negative); Blood,Urine Small (Negative); Color,Urine Colorless; Glucose,Urine (UA) Negative (Negative); Hyaline Casts,Urine 1 /lpf (0-2); Ketones,Urine Negative (Negative); Leukocyte Esterase,Urine Trace (Negative); Mucus,Urine Rare /hpf; Nitrite,Urine Positive (Negative); Protein,Urine Trace (Negative); RBC,Urine 2 /hpf (0-5); Specific Gravity,Urine 1.014 (1.001-1.035); Squamous Epithelial Cell,Urine 1 /hpf (0-4); Urobilinogen,Urine <2.0 mg/dL (<2.0); WBC,Urine 9 /hpf (0-5)
[2023-07-02] MEDS ORDERED: NALOXONE 0.4 MG/ML 1 ML VIAL IV PRN (01:22)
[2023-07-02] MEDS: PIPERACILLIN-TAZOBACTAM 3.375 GM in SODIUM CHLORIDE 0.9% 100 ML IVPB STA (02:04)
[2023-07-02] MEDS: SODIUM CHLORIDE 0.9% 1,000 ML IV SCH (02:05)
--- NOTE | 2023-07-02 07:12 | P.HPIM ---
History of Present Illness H&P Date: 07/02/23 Chief Complaint: Altered mental status 88-year-old female with hyperlipidemia hypertension, history of CAD Patient provides very limited history at time of my evaluation she was alert awake denies any medical complaints at this time eager to go home. By reviewing medical records seems like patient was here about a month ago for dehydration where she was discharged to [facility] after evaluation by PT OT Patient is coming from home by EMS where they found her on the ground confused and route she started to be more awake and by the time she got to the hospital she was alert oriented x 3. Again patient has no complaints. Patient does admit to frequent falling at home without going over details surrounding these episodes. In the ED initial workup showed fever and leukocytosis infectious workup was suggestive of opacities on the chest x-ray in the left lower lobe and right upper lobe. However there is no report of respiratory symptoms. Urine analysis was also positive for nitrite suggestive of infection patient was started on Zosyn and admitted for further care monitoring review of systems Pertinent positives as noted in HPI. All other systems were reviewed and are negative on exam Constitutional: No acute distress, conversant, pleasant Eyes: Anicteric sclerae, moist conjunctiva, Pupils equal round reactive to light ENMT: NC/AT Oropharynx clear, no erythema, or exudates Neck: Supple, no masses, or JVD No carotid bruits No thyromegaly Lungs: Clear to auscultation Clear to percussion Normal respiratory effort, no accessory muscle use Cardiovascular: Heart regular in rate and rhythm, No murmurs, gallops, or rubs No peripheral edema Abdominal: Soft Nontender, no guarding, rebound or rigidity Abdomen moving with respiration Normoactive bowel sounds Extremities: No digital cyanosis No clubbing Pedal pulses intact and symmetrical Radial pulses intact and symmetrical No calf tenderness Psychiatric: Alert and oriented to person, place and time Neuro Muscles Strength 4/5 in all 4 extremities Sensation to light touch grossly present throughout Cranial nerves II-XII grossly intact Past Medical History Past Medical History: Cancer, Hyperlipidemia, Hypertension, Myocardial Infarction ([place]) Additional Past Medical History / Comment(s): brain CA, bladder CA, heart block Last Myocardial Infarction Date:: pt can't remember History of Any Multi-Drug Resistant Organisms: None Reported Past Surgical History: Back Surgery, Hysterectomy, Joint Replacement, Pacemaker Additional Past Surgical History / Comment(s): ablation Past Anesthesia/Blood Transfusion Reactions: No Reported Reaction Type of Cardiac Device: Unknown Device Placement Date:: 2007 Past Psychological History: No Psychological Hx Reported Smoking Status: Never smoker Past Alcohol Use History: None Reported Past Drug Use History: None Reported - Past Family History Mother Family Medical History: Myocardial Infarction ([place]) Father Family Medical History: Cancer Medications and Allergies Home Medications Medication Instructions Recorded Confirmed Type Ammonium Lactate Cream [Lac-Hydrin 1 applic TOPICAL DAILY 09/27/16 05/31/23 History 12% Cream] Atorvastatin [Lipitor] 20 mg PO HS 09/27/16 05/31/23 History Calcium Carbonate 2,000 mg PO DAILY 09/27/16 05/31/23 History Pantoprazole Sodium 40 mg PO BID 09/27/16 05/31/23 History dilTIAZem HCL [dilTIAZem HCL 24Hr 180 mg PO DAILY 09/27/16 05/31/23 History ER ([place])] Cholecalciferol [Vitamin D3 (25 50 mcg PO DAILY 07/17/21 05/31/23 History Mcg = 1000 Iu)] Lidocaine 5% Patch [Lidoderm 5% 1 patch TOPICAL DAILY 07/17/21 05/31/23 History Patch] Meclizine [Antivert] 12.5 mg PO BID PRN 07/17/21 05/31/23 History FLUoxetine HCL [PROzac] 40 mg PO DAILY 05/31/23 05/31/23 History Acetaminophen Tab [Tylenol] 650 mg PO Q6HR PRN tab 06/03/23 Rx Allergies Allergy/AdvReac Type Severity Reaction Status Date / Time Fish Containing Products Allergy Unknown Verified 05/31/23 17:36 Iodine and Iodide Containing Allergy Unknown Verified 05/31/23 17:36 Produc Physical Exam Vitals: Vital Signs Temp Pulse Resp BP Pulse Ox 07/02/23 03:00 75 16 97 07/02/23 02:00 70 18 97 07/02/23 01:00 98.0 F 70 16 118/66 97 07/02/23 00:00 70 22 153/78 96 07/01/23 22:49 100.8 F H 70 16 147/78 97 07/01/23 21:25 101.6 F H 70 22 154/75 95 Intake and Output 07/01/23 07/01/23 07/02/23 14:59 22:59 06:59 Other: Weight 54.431 kg Results CBC & Chem 7: 07/01/23 21:37 07/01/23 21:37 Labs: Abnormal Lab Results - Last 24 Hours (Table) 07/01/23 07/01/23 07/01/23 Range/Units 21:37 21:37 21:37 WBC 11.0 H (3.8-10.6) k/uL Neutrophils # 9.4 H (1.3-7.7) k/uL Lymphocytes # 0.7 L (1.0-4.8) k/uL APTT (22.0-30.0) sec Sodium 136 L (137-145) mmol/L Chloride 109 H (98-107) mmol/L Carbon Dioxide 21 L (22-30) mmol/L Glucose 147 H (74-99) mg/dL Calcium 8.0 L (8.4-10.2) mg/dL Alkaline Phosphatase 127 H (38-126) U/L Troponin I 0.084 H* (0.000-0.034) ng/mL Total Protein 6.0 L (6.3-8.2) g/dL Albumin 2.8 L (3.5-5.0) g/dL Urine Appearance (Clear) Urine Protein (Negative) Urine Blood (Negative) Urine Nitrite (Negative) Ur Leukocyte Esterase (Negative) Urine WBC (0-5) /hpf Urine WBC Clumps (None) /hpf Urine Bacteria (None) /hpf Urine Mucus (None) /hpf 07/01/23 07/01/23 Range/Units 21:52 22:45 WBC (3.8-10.6) k/uL Neutrophils # (1.3-7.7) k/uL Lymphocytes # (1.0-4.8) k/uL APTT 20.1 L (22.0-30.0) sec Sodium (137-145) mmol/L Chloride (98-107) mmol/L Carbon Dioxide (22-30) mmol/L Glucose (74-99) mg/dL Calcium (8.4-10.2) mg/dL Alkaline Phosphatase (38-126) U/L Troponin I (0.000-0.034) ng/mL Total Protein (6.3-8.2) g/dL Albumin (3.5-5.0) g/dL Urine Appearance Cloudy H (Clear) Urine Protein Trace H (Negative) Urine Blood Small H (Negative) Urine Nitrite Positive H (Negative) Ur Leukocyte Esterase Trace H (Negative) Urine WBC 9 H (0-5) /hpf Urine WBC Clumps Rare H (None) /hpf Urine Bacteria Rare H (None) /hpf Urine Mucus Rare H (None) /hpf Assessment and Plan Assessment: 88-year-old female with hypertension hyperlipidemia third-degree heart block st atus post pacemaker was found on the ground at home was brought in by EMS initially confused then became more oriented at baseline she uses a walker to ambulate admits to multiple falls infectious workup in the ED was suggestive of sepsis secondary to UTI discussed the case with ED doctor and accepted the admission for sepsis secondary to UTI with anticipated length of stay more than 2 midnights Sepsis secondary to UTI Febrile with temps 101.6, white count elevated 11, respiratory rate elevated 22 Follow-up cultures Urine analysis positive for nitrite Chest x-ray showed opacities left lower lobe and right upper lobe Patient started on Zosyn 3.375 g IV piggyback every 8 hours Tylenol for fever as needed IV fluid hydration normal saline 75 cc/h Lactic acid unremarkable 1.3 Renal function unremarkable sodium 136 potassium 3.7 BUN 14 creatinine 0.5 Acute respiratory viral panel negative for RSV COVID and influenza AB Slightly elevated troponin 0.08 EKG showed ventricular trace rhythm Patient denies any chest pain or trouble breathing Recheck troponin Fall precautions Hypertension controlled Continue with diltiazem Hyperlipidemia Continue with Lipitor 20 mg p.o. nightly Full code DVT prophylaxis heparin subcu 3 times daily 5000 units GI prophylaxis continue with Protonix 40 mg p.o. twice daily
[2023-07-02] MEDS: PANTOPRAZOLE 40 MG TABLET PO SCH (08:19)
[2023-07-02] MEDS: DILTIAZEM CD 180 MG CAP.ER.24H PO SCH (08:19)
[2023-07-02] MEDS: FLUoxetine HCL 20 MG CAP PO SCH (08:19)
[2023-07-02] MEDS: HEPARIN SODIUM,PORCINE 5,000 UNIT/ML 1 ML VIAL SQ SCH (08:22)
[2023-07-02] MEDS: PIPERACILLIN-TAZOBACTAM 3.375 GM in SODIUM CHLORIDE 0.9% 100 ML IVPB SCH (11:38)
[2023-07-02] MEDS ORDERED: HEPARIN SODIUM 1,000 UN/ML (10ML VL) IV PRN (13:45)
[2023-07-02] MEDS: ASPIRIN 81 MG PO STA (14:29)
[2023-07-02] MEDS: HEPARIN SODIUM 1,000 UN/ML (10ML VL) IV ONE (14:51)
[2023-07-02] MEDS: HEPARIN SOD,PORK IN 0.45% NACL 25,000 UNIT in 0.45% NACL 1 250ML.BAG IV SCH (14:53)
[2023-07-02 16:44] LABS: Glucose,Whole Blood 104 mg/dL (70-110)
[2023-07-02] MEDS: ATORVASTATIN 20 MG TAB PO SCH (20:06)
[2023-07-02] MEDS: ACETAMINOPHEN TAB 325 MG TAB PO PRN (23:12)
--- NOTE | 2023-07-03 05:42 | P.CRDCN ---
History of Present Illness Consult date: 07/03/23 History of present illness: HISTORY OF PRESENTING ILLNESS 88-year-old female with past medical history of hypertension, hyperlipidemia, prior history of CAD, third-degree AV block s/p PPM History is very limited. Patient is alert and awake but denies any major medical complaints, he is not able to provide detailed past medical history or cardiac history, eagerness to go home Apparently patient was admitted to the hospital a month ago for dehydration and discharged tomorrow would after getting evaluated by PT and OT This time patient presented to hospital because of confusion and increased fatigue. Patient does report frequent falls at home prior to coming to the hospital. She is not able to provide details of her falls. She is not able to tell if it was related to lightheadedness or because of gait instability. She reports that she has never passed out in recent past EKG showed paced rhythm Chest x-ray shows mild pulm congestion with small left-sided pleural effusion Hemoglobin 12, sodium 136, BUN 14, creatinine 0.5, troponin 0.08, 0.18, 0.15. U rinalysis positive for esterase and nitrates REVIEW OF SYSTEMS Detailed review of system could not be obtained because of limited history provided by the patient PHYSICAL EXAMINATION Vital signs reviewed. Head: Normocephalic. Eyes: Sclerae nonicteric. Neck: Brisk carotid upstroke, no jugular venous distention. Lungs: Clear to auscultation. Heart: Regular rate and rhythm, S1-S2, no S3, no murmur or rub. Abdomen: Soft nontender, positive bowel sounds. Extremities: No edema, intact distal pulses. Neuro: Alert, oritented, no focal deficits. Detailed neuro exam was not performed. ASSESSMENT NSTEMI, likely type II from underlying sepsis Sepsis, possible UTI as a source Debility and frailty Stable gait PLAN Continue IV heparin for 48 hours Aspirin, Lipitor Obtain echocardiogram Jose Monroe MD, FACC, RPVI Thank you for allowing [facility] to participate in thi s patient's care. Feel free to reach out in case of any followup questions. Past Medical History Past Medical History: Cancer, Hyperlipidemia, Hypertension, Myocardial Infarction ([place]) Additional Past Medical History / Comment(s): brain CA, bladder CA, heart block Last Myocardial Infarction Date:: pt can't remember History of Any Multi-Drug Resistant Organisms: None Reported Past Surgical History: Back Surgery, Hysterectomy, Joint Replacement, Pacemaker Additional Past Surgical History / Comment(s): ablation Past Anesthesia/Blood Transfusion Reactions: No Reported Reaction Type of Cardiac Device: Unknown Device Placement Date:: 2007 Smoking Status: Never smoker - Past Family History Mother Family Medical History: Myocardial Infarction ([place]) Father Family Medical History: Cancer Medications and Allergies Home Medications Medication Instructions Recorded Confirmed Type Ammonium Lactate Cream [Lac-Hydrin 1 applic TOPICAL DAILY 09/27/16 07/02/23 History 12% Cream] Atorvastatin [Lipitor] 20 mg PO HS 09/27/16 07/02/23 History Calcium Carbonate 2,000 mg PO DAILY 09/27/16 07/02/23 History Pantoprazole Sodium 40 mg PO BID 09/27/16 07/02/23 History dilTIAZem HCL [dilTIAZem HCL 24Hr 180 mg PO DAILY 09/27/16 07/02/23 History ER ([place])] Cholecalciferol [Vitamin D3 (25 50 mcg PO DAILY 07/17/21 07/02/23 History Mcg = 1000 Iu)] Lidocaine 5% Patch [Lidoderm 5% 1 patch TRANSDERM DAILY 07/17/21 07/02/23 History Patch] Meclizine [Antivert] 12.5 mg PO BID PRN 07/17/21 07/02/23 History FLUoxetine HCL [PROzac] 40 mg PO DAILY 05/31/23 07/02/23 History Acetaminophen Tab [Tylenol] 650 mg PO Q6HR PRN tab 06/03/23 07/02/23 Rx Allergies Allergy/AdvReac Type Severity Reaction Status Date / Time Fish Containing Products Allergy Unknown Verified 07/02/23 11:21 Iodine and Iodide Containing Allergy Unknown Verified 07/02/23 11:21 Produc Physical Exam Vitals: Vital Signs Temp Pulse Pulse Resp BP BP Pulse Ox 07/03/23 04:00 97.7 F 70 18 127/71 92 L 07/03/23 02:00 68 16 07/03/23 00:00 98.1 F 68 16 138/77 96 07/02/23 20:00 98.1 F 70 16 162/72 95 07/02/23 18:19 70 20 147/74 97 07/02/23 14:57 70 20 156/74 97 07/02/23 11:45 70 20 149/70 93 L 07/02/23 08:18 98.3 F 70 18 147/78 96 07/02/23 07:43 70 18 137/72 96 07/02/23 06:27 70 16 123/71 98 Intake and Output 07/02/23 07/02/23 07/03/23 14:59 22:59 06:59 Other: Voiding Method Bedpan Bedpan Diaper Diaper # Voids 1 # Bowel Movements 1 Weight 54.431 kg Results 07/01/23 21:37 07/01/23 21:37 Cardiac Enzymes 07/02/23 07/02/23 Range/Units 07:49 20:39 Troponin I 0.187 H* 0.157 H* (0.000-0.034) ng/mL Coagulation 07/02/23 Range/Units 20:39 APTT 69.5 H (22.0-30.0) sec Current Medications Generic Name Dose Route Start Last Admin Trade Name Freq PRN Reason Stop Dose Admin Acetaminophen 650 mg 07/02/23 06:58 07/02/23 23:12 Acetaminophen Tab 325 Mg Tab PO 650 mg Q6HR PRN Administration Mild Pain or Fever > 100.5 Aspirin 81 mg 07/03/23 09:00 Aspirin 81 Mg PO DAILY MAU Atorvastatin Calcium 20 mg 07/02/23 21:00 07/02/23 20:06 Atorvastatin 20 Mg Tab PO 20 mg HS MAU Administration Diltiazem HCl 180 mg 07/02/23 09:00 07/02/23 08:19 Diltiazem Cd 180 Mg Cap.Er.24h PO 180 mg DAILY MUA Administration Fluoxetine HCl 40 mg 07/02/23 09:00 07/02/23 08:19 Fluoxetine Hcl 20 Mg Cap PO 40 mg DAILY MAU Administration Heparin Sodium (Porcine) 0 unit 07/02/23 13:45 Heparin Sodium 1,000 Un/Ml (10ml Vl) IV PER PROTOCOL PRN Low PTT Protocol Piperacillin Sod/Tazobactam 100 mls @ 25 mls/hr 07/02/23 10:00 07/03/23 02:18 Sod 3.375 gm/ Sodium Chloride IVPB 25 mls/hr Q8H MAU Administration Protocol Sodium Chloride 1,000 mls @ 75 mls/hr 07/02/23 01:30 07/02/23 18:55 Saline 0.9% IV 75 mls/hr .[id number] MAU Administration Heparin Sodium/Sodium Chloride 250 mls @ 6.532 mls/hr 07/02/23 13:45 07/02/23 14:53 25,000 unit/ Sodium Chloride IV 12 units/kg/hr .Q24H MAU 6.532 mls/hr Administration Protocol 12 UNITS/KG/HR Naloxone HCl 0.2 mg 07/02/23 01:22 Naloxone 0.4 Mg/Ml 1 Ml Vial IV Q2M PRN Opioid Reversal Pantoprazole Sodium 40 mg 07/02/23 07:30 07/02/23 18:54 Pantoprazole 40 Mg Tablet PO 40 mg AC-BID MAU Administration Intake and Output 07/02/23 07/02/23 07/03/23 14:59 22:59 06:59 Other: Voiding Method Bedpan Bedpan Diaper Diaper # Voids 1 # Bowel Movements 1 Weight 54.431 kg Patient Weight 07/03/23 06:59 Weight 54.431 kg 07/01/23 21:37 07/01/23 21:37
[2023-07-03 06:52] LABS: Basophils % (A) 0 %; Eosinophils % (A) 0 %; HCT 32.4 % (34.0-46.0); HGB 10.5 gm/dL (11.4-16.0); Lymphocytes # (A) 1.3 k/uL (1.0-4.8); Lymphocytes % (A) 8 %; MCH 29.2 pg (25.0-35.0); MCHC 32.5 g/dL (31.0-37.0); MCV 89.7 fL (80.0-100.0); Mean Platelet Volume 8.7; Monocytes # (A) 0.8 k/uL (0-1.0); Monocytes % (A) 4 %; Neutrophils # (A) 15.5 k/uL (1.3-7.7); Neutrophils % (A) 87 %; Platelet Count 275 k/uL (150-450); RBC 3.61 m/uL (3.80-5.40); RDW 13.1 % (11.5-15.5); WBC 17.8 k/uL (3.8-10.6)
[2023-07-03 07:12] LABS: African American GFR (CKD) >90 (>60 ml/min/1.73 sqM); Anion Gap 4 mmol/L; Blood Urea Nitrogen 16 mg/dL (7-17); Calcium 8.2 mg/dL (8.4-10.2); Carbon Dioxide 25 mmol/L (22-30); Chloride 104 mmol/L (98-107); Glucose 102 mg/dL (74-99); Magnesium 1.2 mg/dL (1.6-2.3); Non-African American GFR(CKD) 79 (>60 ml/min/1.73 sqM); Potassium 3.4 mmol/L (3.5-5.1); Sodium 133 mmol/L (137-145)
[2023-07-03] MEDS: MAGNESIUM SULFATE-D5W PMX 1 GM in DEXTROSE/WATER 1 100ML.BAG IVPB SCH (09:27)
[2023-07-03] MEDS: ASPIRIN 81 MG PO SCH (09:27)
[2023-07-03] MEDS: POTASSIUM CHLORIDE ER 20 MEQ TAB.ER PO STA (09:27)
--- NOTE | 2023-07-03 13:17 | P.PN ---
Subjective Progress Note Date: 07/03/23 Hospital Course: 88-year-old female with history of hypertension, dyslipidemia, CAD, third-degree AV block status post pacemaker presenting with confusion. On initial presentation, temperature was 101.6, tachypneic, requiring 2 L nasal cannula, WBC 11, creatinine 0.55, troponin elevated to 0.084, urinalysis positive for nitrite and trace leukocyte esterase, respiratory viral panel negative. Chest x-ray showed focal pulmonary opacities in the left lung base and right upper lobe. Head CT showed no acute process. Pelvic x-ray negative for any fractures. EKG showed paced rhythm. Patient was started on IV antibiotics for likely bacterial pneumonia as well as possible urinary tract infection. Mental status improved. Troponin continued to trend up. No active chest pain. Cardiology was consulted, patient started on heparin drip. Subjective: Patient seen and examined at bedside. Complaining of some cough, nonproductive. Denies any other chest pain, abdominal pain, nausea, vomiting, urinary or bowel complaints. Pertinent positives and negatives as discussed above, a complete review of systems was performed and all other systems are negative. Vitals Signs Reviewed. General: Nontoxic, no distress, appears at stated age, chronically ill-appearing Derm: Warm, dry Head: Atraumatic, normocephalic, symmetric Eyes: EOMI, no lid lag, anicteric sclera Mouth: No lip lesion, mucus membranes moist Cardiovascular: S1S2 reg, no murmur Lungs: Bibasilar rales, no accessory muscle use, supplemental oxygen Abdominal: Soft, nontender to palpation, no guarding, no appreciable orga nomegaly Ext: No gross muscle atrophy, no edema, no contractures Neuro: CN II-XI grossly intact, no focal neuro deficits Psych: Alert, oriented, appropriate affect Data Reviewed Today: Pertinent Labs: WBC 17.8, hemoglobin 10.5, potassium 3.4, magnesium 1.2, creatinine 0.65, sodium 133, troponin peaked at 0.187. Imaging: EKG independently interpreted from this morning, shows ventricularly paced rhythm. Assessment and Plan: Patient is severely ill, needs close monitoring. Prognosis guarded. Active: Sepsis secondary to community-acquired pneumonia Suspected urinary tract infection Acute metabolic encephalopathy, resolved NSTEMI, likely type II in the setting of sepsis -Continue IV Zosyn 3.375 g every 8 hours -Speech therapy consulted for possible aspiration -Patient asymptomatic from urinary standpoint -Blood cultures, Legionella urine antigen, sputum cultures, urine cultures pending -Continue normal saline at 75 cc an hour -Cardiology following, patient maintained on heparin drip, monitor APTT -Echocardiogram pending -Continue telemetry monitoring -Started on aspirin 81 mg, continue home atorvastatin 20 mg Mild normocytic anemia, in the setting of acute illness -No active bleeding -Repeat CBC tomorrow Mild hyponatremia -Encourage oral intake Mild hypokalemia Hypomagnesemia -Given 20 mill equivalent oral potassium, 4 g of IV magnesium -Repeat BMP and magnesium tomorrow Chronic debility -PT/OT Chronic: History of CAD Dyslipidemia Hypertension GERD DVT ppx: Heparin drip Code status: Full code Anticipated discharge place: Pending clinical course Anticipated discharge time: Pending clinical course Objective - Vital Signs Vital signs: Vital Signs Temp 98.1 F 07/03/23 12:37 Pulse 71 07/03/23 12:37 Resp 18 07/03/23 12:37 BP 121/70 07/03/23 12:37 Pulse Ox 86 L 07/03/23 12:37 FiO2 Intake & Output 07/02/23 07/03/23 07/03/23 18:59 06:59 18:59 Intake Total 240 Balance 240 Weight 54.431 kg Intake: Oral 240 Other: Voiding Method Bedpan Bedside Commode Diaper Diaper # Voids 1 1 # Bowel Movements 1 1 - Labs CBC & Chem 7: 07/03/23 05:35 07/03/23 05:35 Labs: Abnormal Lab Results - Last 24 Hours (Table) 07/02/23 07/02/23 07/03/23 Range/Units 20:39 20:39 05:35 WBC 17.8 H (3.8-10.6) k/uL RBC 3.61 L (3.80-5.40) m/uL Hgb 10.5 L (11.4-16.0) gm/dL Hct 32.4 L (34.0-46.0) % Neutrophils # 15.5 H (1.3-7.7) k/uL APTT 69.5 H (22.0-30.0) sec Sodium (137-145) mmol/L Potassium (3.5-5.1) mmol/L Glucose (74-99) mg/dL Calcium (8.4-10.2) mg/dL Magnesium (1.6-2.3) mg/dL Troponin I 0.157 H* (0.000-0.034) ng/mL 07/03/23 07/03/23 Range/Units 05:35 05:35 WBC (3.8-10.6) k/uL RBC (3.80-5.40) m/uL Hgb (11.4-16.0) gm/dL Hct (34.0-46.0) % Neutrophils # (1.3-7.7) k/uL APTT 71.4 H (22.0-30.0) sec Sodium 133 L (137-145) mmol/L Potassium 3.4 L (3.5-5.1) mmol/L Glucose 102 H (74-99) mg/dL Calcium 8.2 L (8.4-10.2) mg/dL Magnesium 1.2 L (1.6-2.3) mg/dL Troponin I (0.000-0.034) ng/mL Microbiology - Last 24 Hours (Table) 07/01/23 22:00 Blood Culture - Preliminary Blood 07/01/23 21:45 Blood Culture - Preliminary Blood
[2023-07-04] MEDS: ONDANSETRON 4 MG/2 ML VIAL IVP PRN (08:23)
[2023-07-04 09:40] LABS: Basophils % (A) 0 %; Eosinophils # (A) 0.1 k/uL (0-0.7); Eosinophils % (A) 1 %; HCT 34.2 % (34.0-46.0); HGB 10.7 gm/dL (11.4-16.0); Lymphocytes # (A) 1.4 k/uL (1.0-4.8); Lymphocytes % (A) 9 %; MCH 28.5 pg (25.0-35.0); MCHC 31.3 g/dL (31.0-37.0); MCV 91.1 fL (80.0-100.0); Mean Platelet Volume 7.9; Monocytes # (A) 0.6 k/uL (0-1.0); Monocytes % (A) 4 %; Neutrophils # (A) 12.6 k/uL (1.3-7.7); Neutrophils % (A) 85 %; Platelet Count 338 k/uL (150-450); RBC 3.76 m/uL (3.80-5.40); RDW 13.1 % (11.5-15.5); WBC 14.8 k/uL (3.8-10.6)
[2023-07-04 10:00] LABS: African American GFR (CKD) >90 (>60 ml/min/1.73 sqM); Anion Gap 5 mmol/L; Blood Urea Nitrogen 17 mg/dL (7-17); Calcium 7.7 mg/dL (8.4-10.2); Carbon Dioxide 22 mmol/L (22-30); Chloride 103 mmol/L (98-107); Glucose 141 mg/dL (74-99); Magnesium 2.2 mg/dL (1.6-2.3); Non-African American GFR(CKD) 79 (>60 ml/min/1.73 sqM); Potassium 3.4 mmol/L (3.5-5.1); Sodium 130 mmol/L (137-145)
--- NOTE | 2023-07-04 12:24 | P.PN ---
Subjective Progress Note Date: 07/04/23 HISTORY OF PRESENTING ILLNESS 88-year-old female with past medical history of hypertension, hyperlipidemia, prior history of CAD, third-degree AV block s/p PPM History is very limited. Patient is alert and awake but denies any major medical complaints, he is not able to provide detailed past medical history or cardiac history, eagerness to go home Apparently patient was admitted to the hospital a month ago for dehydration and discharged tomorrow would after getting evaluated by PT and OT This time patient presented to hospital because of confusion and increased fatigue. Patient does report frequent falls at home prior to coming to the hospital. She is not able to provide details of her falls. She is not able to tell if it was related to lightheadedness or because of gait instability. She reports that she has never passed out in recent past EKG showed paced rhythm Chest x-ray shows mild pulm congestion with small left-sided pleural effusion Hemoglobin 12, sodium 136, BUN 14, creatinine 0.5, troponin 0.08, 0.18, 0.15. Urinalysis positive for esterase and nitrates 07/03 Patient is seen today in follow-up. She has been maintained on IV heparin which will be coming up in 48 hours this afternoon. Blood pressure 139/76, heart rate 70, pulse ox 92% on room air. Patient denies having any chest pain and denies any shortness of breath. Echocardiogram is pending. She does complain of feeling tired and fatigued. Patient states that she had some diarrhea this morning. PHYSICAL EXAMINATION Vital signs reviewed. Head: Normocephalic. Eyes: Sclerae nonicteric. Neck: Brisk carotid upstroke, no jugular venous distention. Lungs: Scattered rhonchi. Heart: Regular rate and rhythm, S1-S2, no S3, no murmur or rub. Abdomen: Soft nontender, positive bowel sounds. Extremities: No edema, intact distal pulses. Neuro: Alert, oritented, no focal deficits. Detailed neuro exam was not performe d. ASSESSMENT NSTEMI, likely type II from underlying sepsis Sepsis, possible UTI as a source Debility and frailty Stable gait PLAN Discontinue IV heparin Continue patient on aspirin, Lipitor, Cardizem CD Obtain echocardiogram Nurse practitioner note has been reviewed, I agree with documented findings and plan of care. Patient was seen and examined. Objective - Vital Signs Vital signs: Vital Signs Temp 97.9 F 07/04/23 04:14 Pulse 70 07/04/23 04:14 Resp 20 07/04/23 04:14 BP 139/76 07/04/23 04:14 Pulse Ox 92 L 07/04/23 04:14 FiO2 Intake & Output 07/03/23 07/04/23 07/04/23 18:59 06:59 18:59 Intake Total 368 234.499 Balance 368 234.499 Intake: IV 10 Invasive Line 2 10 Intake, IV Titration 234.499 Amount Heparin Sod,Pork in 0.45% 234.499 NaCl 25,000 unit In 0.45 % NaCl 1 250ml.bag @ 12 UNITS/KG/HR 6.532 mls/hr IV .Q24H [facility] Rx#: [id number] Oral 358 Other: Voiding Method Bedside Commode Bedside Commode Diaper Diaper # Voids 1 1 # Bowel Movements 1 - Labs CBC & Chem 7: 07/04/23 09:16 07/04/23 09:16 Labs: Microbiology - Last 24 Hours (Table) 07/01/23 22:00 Blood Culture - Preliminary Blood 07/01/23 21:45 Blood Culture - Preliminary Blood 07/02/23 18:17 Urine Culture - Final Urine,Voided
--- NOTE | 2023-07-04 13:05 | P.PN ---
Subjective Progress Note Date: 07/04/23 Hospital Course: 88-year-old female with history of hypertension, dyslipidemia, CAD, third-degree AV block status post pacemaker presenting with confusion. On initial presentation, temperature was 101.6, tachypneic, requiring 2 L nasal cannula, WBC 11, creatinine 0.55, troponin elevated to 0.084, urinalysis positive for nitrite and trace leukocyte esterase, respiratory viral panel negative. Chest x-ray showed focal pulmonary opacities in the left lung base and right upper lobe. Head CT showed no acute process. Pelvic x-ray negative for any fractures. EKG showed paced rhythm. Patient was started on IV antibiotics for likely bacterial pneumonia as well as possible urinary tract infection. Mental status improved. Troponin continued to trend up. No active chest pain. Cardiology was consulted, patient started on heparin drip. Respiratory function improved Subjective: Patient seen and examined at bedside. Complaining of some cough, nonproductive. Denies any other chest pain, abdominal pain, nausea, vomiting, urinary or bowel complaints. Off of oxygen Pertinent positives and negatives as discussed above, a complete review of systems was performed and all other systems are negative. Vitals Signs Reviewed. General: Nontoxic, no distress, appears at stated age, chronically ill-appearing Derm: Warm, dry Head: Atraumatic, normocephalic, symmetric Eyes: EOMI, no lid lag, anicteric sclera Mouth: No lip lesion, mucus membranes moist Cardiovascular: S1S2 reg, no murmur Lungs: Bibasilar rales, no accessory muscle use, Abdominal: Soft, nontender to palpation, no guarding, no appreciable organomegaly Ext: No gross muscle atrophy, no edema, no contractures Neuro: CN II-XI grossly intact, no focal neuro deficits Psych: Alert, oriented, appropriate affect Data Reviewed Today: Pertinent Labs: WBC 14.8, hemoglobin 10.7, APTT 56.2, potassium 3.4, magnesium 2.2, creatinine 0.65 urine Legionella negative. Imaging: EKG independently interpreted from this morning, shows ventricularly paced rhythm. Assessment and Plan: Active: Sepsis secondary to community-acquired pneumonia Suspected urinary tract infection Acute metabolic encephalopathy, resolved NSTEMI, likely type II in the setting of sepsis -Continue IV Zosyn 3.375 g every 8 hours -Speech therapy consulted for possible aspiration -Patient asymptomatic from urinary standpoint -Blood cultures no growth, Legionella negative, urine culture negative. -Continue normal saline at 75 cc an hour -Cardiology note reviewed, heparin drip discontinued -Echocardiogram pending -Continue telemetry monitoring -Continue on aspirin 81 mg, continue home atorvastatin 20 mg Mild normocytic anemia, in the setting of acute illness -No active bleeding Mild hyponatremia -Encourage oral intake Mild hypokalemia Hypomagnesemia, resolved -Given 20 mill equivalent oral potassium Chronic debility -PT/OT Chronic: History of CAD Dyslipidemia Hypertension GERD DVT ppx: Heparin SQ Code status: Full code Anticipated discharge place: Pending clinical course Anticipated discharge time: Pending clinical course Objective - Vital Signs Vital signs: Vital Signs Temp 98.2 F 07/04/23 12:00 Pulse 70 07/04/23 12:44 Resp 16 07/04/23 12:44 BP 129/69 07/04/23 12:00 Pulse Ox 93 L 07/04/23 12:00 FiO2 Intake & Output 07/03/23 07/04/23 07/04/23 18:59 06:59 18:59 Intake Total 368 234.499 236 Balance 368 234.499 236 Intake: IV 10 Invasive Line 2 10 Intake, IV Titration 234.499 Amount Heparin Sod,Pork in 0.45% 234.499 NaCl 25,000 unit In 0.45 % NaCl 1 250ml.bag @ 12 UNITS/KG/HR 6.532 mls/hr IV .Q24H [facility] Rx#: [id number] Oral 358 236 Other: Voiding Method Bedside Commode Bedside Commode Bedside Commode Diaper Diaper Diaper # Voids 1 1 # Bowel Movements 1 1 - Labs CBC & Chem 7: 07/04/23 09:16 07/04/23 09:16 Labs: Abnormal Lab Results - Last 24 Hours (Table) 07/04/23 07/04/23 07/04/23 Range/Units 09:16 09:16 09:16 WBC 14.8 H (3.8-10.6) k/uL RBC 3.76 L (3.80-5.40) m/uL Hgb 10.7 L (11.4-16.0) gm/dL Neutrophils # 12.6 H (1.3-7.7) k/uL APTT 56.2 H (22.0-30.0) sec Sodium 130 L (137-145) mmol/L Potassium 3.4 L (3.5-5.1) mmol/L Glucose 141 H (74-99) mg/dL Calcium 7.7 L (8.4-10.2) mg/dL Microbiology - Last 24 Hours (Table) 07/01/23 22:00 Blood Culture - Preliminary Blood 07/01/23 21:45 Blood Culture - Preliminary Blood 07/02/23 18:17 Urine Culture - Final Urine,Voided
[2023-07-04] MEDS: HEPARIN SODIUM,PORCINE 5,000 UNIT/ML 1 ML VIAL SQ SCH (14:16)
[2023-07-04] MEDS: POTASSIUM CHLORIDE ER 20 MEQ TAB.ER PO STA (14:16)
[2023-07-04 15:18] VITALS: BMI 18.8
[2023-07-05] MEDS: ISOSORBIDE MONONITRATE ER 30 MG TAB.ER.24H PO SCH (08:20)
[2023-07-05] MEDS ORDERED: lisinopriL 5 MG TAB PO SCH (09:00)
[2023-07-05 10:43] LABS: Basophils % (A) 0 %; Eosinophils # (A) 0.1 k/uL (0-0.7); Eosinophils % (A) 1 %; HCT 29.1 % (34.0-46.0); Lymphocytes # (A) 1.3 k/uL (1.0-4.8); Lymphocytes % (A) 13 %; MCH 28.4 pg (25.0-35.0); MCHC 31.5 g/dL (31.0-37.0); MCV 90.1 fL (80.0-100.0); Mean Platelet Volume 8.7; Monocytes # (A) 0.6 k/uL (0-1.0); Monocytes % (A) 6 %; Neutrophils # (A) 7.4 k/uL (1.3-7.7); Neutrophils % (A) 78 %; Platelet Count 361 k/uL (150-450); RBC 3.23 m/uL (3.80-5.40); RDW 13.3 % (11.5-15.5); WBC 9.5 k/uL (3.8-10.6)
[2023-07-05 10:44] LABS: HGB 9.2 gm/dL (11.4-16.0)
[2023-07-05 10:47] LABS: African American GFR (CKD) 90 (>60 ml/min/1.73 sqM); Anion Gap 3 mmol/L; Blood Urea Nitrogen 15 mg/dL (7-17); Calcium 7.8 mg/dL (8.4-10.2); Carbon Dioxide 25 mmol/L (22-30); Chloride 104 mmol/L (98-107); Glucose 123 mg/dL (74-99); Magnesium 1.9 mg/dL (1.6-2.3); Non-African American GFR(CKD) 78 (>60 ml/min/1.73 sqM); Potassium 3.8 mmol/L (3.5-5.1); Sodium 132 mmol/L (137-145)
--- NOTE | 2023-07-05 10:52 | P.PN ---
Subjective Progress Note Date: 07/05/23 HISTORY OF PRESENTING ILLNESS 88-year-old female with past medical history of hypertension, hyperlipidemia, prior history of CAD, third-degree AV block s/p PPM History is very limited. Patient is alert and awake but denies any major medical complaints, he is not able to provide detailed past medical history or cardiac history, eagerness to go home Apparently patient was admitted to the hospital a month ago for dehydration and discharged tomorrow would after getting evaluated by PT and OT This time patient presented to hospital because of confusion and increased fatigue. Patient does report frequent falls at home prior to coming to the hospital. She is not able to provide details of her falls. She is not able to tell if it was related to lightheadedness or because of gait instability. She reports that she has never passed out in recent past EKG showed paced rhythm Chest x-ray shows mild pulm congestion with small left-sided pleural effusion Hemoglobin 12, sodium 136, BUN 14, creatinine 0.5, troponin 0.08, 0.18, 0.15. Urinalysis positive for esterase and nitrates 07/03 Patient is seen today in follow-up. She has been maintained on IV heparin which will be coming up in 48 hours this afternoon. Blood pressure 139/76, heart rate 70, pulse ox 92% on room air. Patient denies having any chest pain and denies any shortness of breath. Echocardiogram is pending. She does complain of feeling tired and fatigued. Patient states that she had some diarrhea this morning. 07/04 Patient denies having any chest pain. IV heparin was discontinued yesterday. Blood pressure readings remain elevated 159/72, heart rate 74, pulse ox 93% on 2 L nasal cannula. Repeat blood work reveals hemoglobin 9.2, WBC normalized at 9.5. Sodium 132, potassium 3.8. Glucose 123. BUN 15 creatinine one 0.68. Echocardiogram has been obtained and report is pending. PHYSICAL EXAMINATION Vital signs reviewed. Head: Normocephalic. Eyes: Sclerae nonicteric. Neck: Brisk carotid upstroke, no jugular venous distention. Lungs: Scattered rhonchi. Heart: Regular rate and rhythm, S1-S2, no S3, no murmur or rub. Abdomen: Soft nontender, positive bowel sounds. Extremities: No edema, intact distal pulses. Neuro: Alert, oritented, no focal deficits. Detailed neuro exam was not performed. ASSESSMENT NSTEMI, likely type II from underlying sepsis Sepsis, possible UTI as a source Debility and frailty Stable gait PLAN Continue patient on aspirin, Lipitor, Cardizem CD Obtain echocardiogram report Start patient on Imdur 30 mg daily and lisinopril 2.5 mg daily Nurse practitioner note has been reviewed, I agree with documented findings and plan of care. Patient was seen and examined. Objective - Vital Signs Vital signs: Vital Signs Temp 97.7 F 07/05/23 08:03 Pulse 74 07/05/23 08:03 Resp 20 07/05/23 08:03 BP 159/72 07/05/23 08:03 Pulse Ox 93 L 07/05/23 08:03 FiO2 Intake & Output 07/04/23 07/05/23 07/05/23 18:59 06:59 18:59 Intake Total 236 Balance 236 Weight 54.431 kg Intake: Oral 236 Other: Voiding Method Bedside Commode Bedside Commode Diaper Diaper # Voids 1 # Bowel Movements 2 - Labs CBC & Chem 7: 07/05/23 09:13 07/05/23 09:13 Labs: Abnormal Lab Results - Last 24 Hours (Table) 07/04/23 07/04/23 07/04/23 Range/Units 09:16 09:16 09:16 WBC 14.8 H (3.8-10.6) k/uL RBC 3.76 L (3.80-5.40) m/uL Hgb 10.7 L (11.4-16.0) gm/dL Neutrophils # 12.6 H (1.3-7.7) k/uL APTT 56.2 H (22.0-30.0) sec Sodium 130 L (137-145) mmol/L Potassium 3.4 L (3.5-5.1) mmol/L Glucose 141 H (74-99) mg/dL Calcium 7.7 L (8.4-10.2) mg/dL Microbiology - Last 24 Hours (Table) 07/01/23 22:00 Blood Culture - Preliminary Blood 07/01/23 21:45 Blood Culture - Preliminary Blood
--- NOTE | 2023-07-05 11:57 | CA ---
Transthoracic Echo Report Name: Adali Sommer Age: 88 Gender: F : 1935 Exam Date: 07/04/2023 15:21 Exam Location: [facility] Ht (in): 67 Wt (lb): 120 Ordering Physician: Jose Monroe MD ([id number]) Attending/Referring Phys: [employer] Pamela Barrios RDCS Procedure CPT: Indications: nstemi Cardiac Hx: Technical Quality: Fair Contrast 1: Total Dose (mL): Contrast 2: Total Dose (mL): MEASUREMENTS (Male / Female) Normal Values 2D ECHO LV Diastolic Diameter PLAX 3.5 cm 4.2 - 5.9 / 3.9 - 5.3 cm LV Systolic Diameter PLAX 2.0 cm IVS Diastolic Thickness 1.3 cm 0.6 - 1.0 / 0.6 - 0.9 cm LVPW Diastolic Thickness 1.4 cm 0.6 - 1.0 / 0.6 - 0.9 cm LV Relative Wall Thickness 0.8 LA Systolic Diameter LX 3.3 cm 3.0 - 4.0 / 2.7 - 3.8 cm LV Diastolic Volume MOD BP 27.3 cm??? 67 - 155 / 56 - 104 cm??? LV Systolic Volume MOD BP 10.0 cm??? 22 - 58 / 19 - 49 cm??? LV Ejection Fraction MOD BP 63.3 % >= 55 % LV Cardiac Index MOD BP 758.0 cm???/min???m??? LV Diastolic Volume MOD 4C 31.8 cm??? LV Systolic Volume MOD 4C 8.9 cm??? LV Ejection Fraction MOD 4C 72.0 % LV Cardiac Index MOD 4C 1003.2 cm???/min???m??? LV Diastolic Length 4C 5.9 cm LV Systolic Length 4C 6.1 cm LV Diastolic Volume MOD 2C 21.2 cm??? LV Systolic Volume MOD 2C 9.6 cm??? LV Ejection Fraction MOD 2C 54.7 % LV Cardiac Index MOD 2C 509.0 cm???/min???m??? LV Diastolic Length 2C 5.3 cm LV Systolic Length 2C 5.1 cm LA Volume 52.9 cm??? 18 - 58 / 22 - 52 cm??? LA Volume Index 33.2 cm???/m??? 16 - 28 cm???/m??? M-MODE Aortic Root Diameter MM 3.4 cm LA Systolic Diameter MM 4.2 cm LA Ao Ratio MM 1.3 AV Cusp Separation MM 1.5 cm DOPPLER AV Peak Velocity 143.3 cm/s AV Peak Gradient 8.2 mmHg TR Peak Velocity 284.8 cm/s TR Peak Gradient 32.4 mmHg Right Ventricular Systolic Press 46.3 mmHg FINDINGS Left Ventricle Left ventricular ejection fraction is estimated at 55-60 %. Moderately increased septal wall thickness. Moderately increased posterior wall thickness. Right Ventricle Normal right ventricular size and function. Moderate pulmonary hypertension. Right Atrium Mild right atrial dilatation. Catheter/pacemaker wire in the right atrial cavity. Left Atrium Mildly increased left atrial volume. Mitral Valve Structurally normal mitral valve. Mild mitral regurgitation. Aortic Valve Trileaflet aortic valve. No aortic valve stenosis or regurgitation. Tricuspid Valve Structurally normal tricuspid valve. [id number] tricuspid regurgitation. Pulmonic Valve Structurally normal pulmonic valve. Trace pulmonic regurgitation. No pulmonic stenosis. Pericardium No pericardial or pleural effusion. Aorta Normal size aortic root and proximal ascending aorta. CONCLUSIONS Left ventricular ejection fraction 55-60% Moderately increased left ventricular wall thickness Mild mitral regurgitation Mild to moderate tricuspid regurgitation No pericardial effusion Previewed by: Dr. Howard Almaguer DO (Electronically Signed) Final Date: 05 Jul 2023 11:56
[2023-07-05 12:32] VITALS: PULSE 70; RESP 17; TEMP 97.4
--- NOTE | 2023-07-05 15:10 | P.DS ---
Providers Date of admission: 07/02/23 01:22 Expected date of discharge: 07/05/23 Attending physician: Lesvia Borden MD Consults: 07/02/23 10:08 Consult Physician Urgent Consulting Provider: Jose Monroe Consult Reason/Comments: elevated troponin Do you want consulting provider notified?: Yes, Notify in am Primary care physician: [facility] Hospital Course: Discharge Diagnosis: Sepsis secondary to community-acquired pneumonia Acute hypoxic respiratory failure Suspected urinary tract infection Acute metabolic encephalopathy NSTEMI, likely type II in the setting of sepsis Mild normocytic anemia, in the setting of acute illness Mild hyponatremia Mild hypokalemia Hypomagnesemia Chronic debility Hospital Course: 88-year-old female with history of hypertension, dyslipidemia, CAD, third-degree AV block status post pacemaker presenting with confusion. On initial presentation, temperature was 101.6, tachypneic, requiring 2 L nasal cannula, WBC 11, creatinine 0.55, troponin elevated to 0.084, urinalysis positive for nitrite and trace leukocyte esterase, respiratory viral panel negative. Chest x-ray showed focal pulmonary opacities in the left lung base and right upper lobe. Head CT showed no acute process. Pelvic x-ray negative for any fractures. EKG showed paced rhythm. Patient was started on IV antibiotics for likely community-acquired pneumonia as well as possible urinary tract infection. Mental status improved. Troponin continued to trend up. No active chest pain. Cardiology was consulted, patient started on heparin drip. This was discontinued after 48 hours. Respiratory function improved at the time of discharge. Urine culture was done after the antibiotics were administered, was negative for any growth. However, cannot completely rule out urinary tract infection. Patient to be discharged on oral antibiotics. Echocardiogram showed LVEF 55 to 60%, moderately increased LV wall thickness, mild mitral regurgitation, mild to moderate tricuspid regurgitation. Patient seen and examined at bedside. Vital signs reviewed and stable. General: Nontoxic, no distress, appears at stated age, chronically ill-appearing Derm: Warm, dry Head: Atraumatic, normocephalic, symmetric Eyes: EOMI, no lid lag, anicteric sclera Mouth: No lip lesion, mucus membranes moist Cardiovascular: S1S2 reg, no murmur Lungs: Bibasilar rales, no accessory muscle use, Abdominal: Soft, nontender to palpation, no guarding, no appreciable organomegaly Ext: No gross muscle atrophy, no edema, no contractures Neuro: CN II-XI grossly intact, no focal neuro deficits Psych: Alert, oriented, appropriate affect A total of 33 minutes of time were spent preparing this complex discharge summary. Patient was discharged on 07/05/2023 at 1509. Patient Condition at Discharge: Stable Plan - Discharge Summary Discharge Rx Participant: No New Discharge Prescriptions: New Cefdinir 300 mg PO Q12HR #2 cap Isosorbide Mononitrate ER [Imdur] 30 mg PO DAILY tab Aspirin 81 mg PO DAILY tab lisinopriL [Zestril] 2.5 mg PO DAILY tab Continue Calcium Carbonate 2,000 mg PO DAILY Pantoprazole Sodium 40 mg PO BID dilTIAZem HCL [dilTIAZem HCL 24Hr ER (LA)] 180 mg PO DAILY Atorvastatin [Lipitor] 20 mg PO HS Ammonium Lactate Cream [Lac-Hydrin 12% Cream] 1 applic TOPICAL DAILY Acetaminophen Tab [Tylenol] 650 mg PO Q6HR PRN tab PRN Reason: Mild Pain Or Fever > 100.5 Cholecalciferol [Vitamin D3 (25 Mcg = 1000 Iu)] 50 mcg PO DAILY FLUoxetine HCL [PROzac] 40 mg PO DAILY Discontinued Meclizine [Antivert] 12.5 mg PO BID PRN PRN Reason: DIZZINESS Lidocaine 5% Patch [Lidoderm 5% Patch] 1 patch TRANSDERM DAILY Discharge Medication List Ammonium Lactate Cream [Lac-Hydrin 12% Cream] 1 applic TOPICAL DAILY 09/27/16 [History] Atorvastatin [Lipitor] 20 mg PO HS 09/27/16 [History] Calcium Carbonate 2,000 mg PO DAILY 09/27/16 [History] Pantoprazole Sodium 40 mg PO BID 09/27/16 [History] dilTIAZem HCL [dilTIAZem HCL 24Hr ER (LA)] 180 mg PO DAILY 09/27/16 [History] Cholecalciferol [Vitamin D3 (25 Mcg = 1000 Iu)] 50 mcg PO DAILY 07/17/21 [History] FLUoxetine HCL [PROzac] 40 mg PO DAILY 05/31/23 [History] Acetaminophen Tab [Tylenol] 650 mg PO Q6HR PRN tab 06/03/23 [Rx] Aspirin 81 mg PO DAILY tab 07/05/23 [Rx] Cefdinir 300 mg PO Q12HR #2 cap 07/05/23 [Rx] Isosorbide Mononitrate ER [Imdur] 30 mg PO DAILY tab 07/05/23 [Rx] lisinopriL [Zestril] 2.5 mg PO DAILY tab 07/05/23 [Rx] Follow up Appointment(s)/Referral(s): Meet Worrell MD [STAFF PHYSICIAN] - 1 Week [facility]inic [Primary Care Provider] - 1-2 days Patient Instructions/Handouts: Heart Attack (DC), Sepsis (DC) Activity/Diet/Wound Care/Special Instructions: Please see PCP and cardiology. Discharge Disposition: TRANSFER TO SNF/ECF
[2023-07-05 16:15] VITALS: BP 96/51
== END 2023-07-05 17:37 | DRG 871 ==
LOC: EC 21:09 → 3SCARD 07-02 01:22
PROVIDERS: ADMIT Internal Medicine; ATTEND Internal Medicine
DX: A41.9 Sepsis, unspecified organism (principal); G93.41 Metabolic encephalopathy; I21.A1 Myocardial infarction type 2; J96.01 Acute respiratory failure with hypoxia; J15.9 Unspecified bacterial pneumonia; N39.0 Urinary tract infection, site not specified; J90 Pleural effusion, not elsewhere classified; E87.1 Hypo-osmolality and hyponatremia; Z66 Do not resuscitate; K21.9 Gastro-esophageal reflux disease without esophagitis; I25.10 Atherosclerotic heart disease of native coronary artery without angina pectoris; I07.1 Rheumatic tricuspid insufficiency; R19.7 Diarrhea, unspecified; I10 Essential (primary) hypertension; D64.9 Anemia, unspecified; E87.6 Hypokalemia; E83.42 Hypomagnesemia; R53.81 Other malaise; E78.5 Hyperlipidemia, unspecified; R29.6 Repeated falls; W19.XXXA Unspecified fall, initial encounter; Y92.019 Unspecified place in single-family (private) house as the place of occurrence of the external cause; Z95.0 Presence of cardiac pacemaker; Z85.841 Personal history of malignant neoplasm of brain; Z85.51 Personal history of malignant neoplasm of bladder; I25.2 Old myocardial infarction; Z91.041 Radiographic dye allergy status; Z79.899 Other long term (current) drug therapy
CPT/HCPCS: 36415; 51701; 70450; 71045; 72170; 80048; 80053; 81001; 82140; 82550; 83605; 83735; 84484; 85025; 85610; 85730; 87040; 87086; 87449; 87636; 93005; 93306; 94760; 96365; 96366; 96367; 96372; 99285

== ENCOUNTER → 2023-07-21 | Outpatient (CLI) | payer MEDICARE ==
--- NOTE | 2023-07-21 12:17 | FL ---
Exam Date: 07/21/2023 12:02 PM. Modified barium swallow for dysphagia. Consistencies administered: Various consistency of barium. Fluoro time: 1 minute 9 seconds No images were sent to PACS. Please see speech pathology report. DAP: Not recorded mGym2 Gycm2
== END | disposition home or self-care (01) ==
LOC: RADFLMAIN 11:13
PROVIDERS: ATTEND Family Medicine
DX: R13.19 Other dysphagia (principal)
CPT/HCPCS: 74230

== ENCOUNTER 2023-10-23 10:00 | Emergency (ER) | payer MEDICARE ==
[2023-10-23 10:08] VITALS: RESP 16; TEMP 97.5
--- NOTE | 2023-10-23 10:24 | ED ---
General Adult HPI - General Chief complaint: Fall Stated complaint: Fall Time Seen by Provider: 10/23/23 10:01 Source: patient, EMS, RN notes reviewed, old records reviewed Mode of arrival: EMS Limitations: no limitations - History of Present Illness Initial comments: This is an 88-year-old female who presents to the emergency department because she fell today and hit her head on the side of her end table. Patient did not lose consciousness. Patient denies a headache. Patient denies neck pain. Patient has numbness weakness. Patient denies being days. Patient denies any nausea vomiting. Patient is on blood thinners. Patient is not supposed to transfer herself but she does make attempts on her own occasionally - Related Data Home Medications Medication Instructions Recorded Confirmed Ammonium Lactate Cream [Lac-Hydrin 1 applic TOPICAL DAILY 09/27/16 07/02/23 12% Cream] Atorvastatin [Lipitor] 20 mg PO HS 09/27/16 07/02/23 Calcium Carbonate 2,000 mg PO DAILY 09/27/16 07/02/23 Pantoprazole Sodium 40 mg PO BID 09/27/16 07/02/23 dilTIAZem HCL [dilTIAZem HCL 24Hr 180 mg PO DAILY 09/27/16 07/02/23 ER (LA)] Cholecalciferol [Vitamin D3 (25 50 mcg PO DAILY 07/17/21 07/02/23 Mcg = 1000 Iu)] FLUoxetine HCL [PROzac] 40 mg PO DAILY 05/31/23 07/02/23 Previous Rx's Medication Instructions Recorded Acetaminophen Tab [Tylenol] 650 mg PO Q6HR PRN tab 06/03/23 Aspirin 81 mg PO DAILY tab 07/05/23 Cefdinir 300 mg PO Q12HR #2 cap 07/05/23 Isosorbide Mononitrate ER [Imdur] 30 mg PO DAILY tab 07/05/23 lisinopriL [Zestril] 2.5 mg PO DAILY tab 07/05/23 Allergies Allergy/AdvReac Type Severity Reaction Status Date / Time Fish Containing Products Allergy Unknown Verified 10/23/23 10:05 Iodine and Iodide Containing Allergy Unknown Verified 10/23/23 10:05 Produc Review of Systems ROS Statement: Those systems with pertinent positive or pertinent negative responses have been documented in the HPI. ROS Other: All systems not noted in ROS Statement are negative. Past Medical History Past Medical History: Cancer, Hyperlipidemia, Hypertension, Myocardial Infarction ([place]) Additional Past Medical History / Comment(s): brain CA, bladder CA, heart block Last Myocardial Infarction Date:: pt can't remember History of Any Multi-Drug Resistant Organisms: None Reported Past Surgical History: Back Surgery, Hysterectomy, Joint Replacement, Pacemaker Additional Past Surgical History / Comment(s): ablation Past Anesthesia/Blood Transfusion Reactions: No Reported Reaction Type of Cardiac Device: Unknown Device Placement Date:: 2007 Past Psychological History: No Psychological Hx Reported Smoking Status: Never smoker - Past Family History Mother Family Medical History: Myocardial Infarction ([place]) Father Family Medical History: Cancer General Exam - General Exam Comments Initial Comments: GENERAL: Patient is well-developed and well-nourished. Patient is nontoxic and well- hydrated and is in distress. ENT: Neck is soft and supple. No significant lymphadenopathy is noted. Oropharynx is clear. Moist mucous membranes. Neck has full range of motion without eliciting any pain. Patient has a hematoma on the right frontal area of her scalp EYES: The sclera were anicteric and conjunctiva were pink and moist. Extraocular movements were intact and pupils were equal round and reactive to light. Eyelids were unremarkable. PULMONARY: Unlabored respirations. Good breath sounds bilaterally. No audible rales rhonchi or wheezing was noted. CARDIOVASCULAR: There is a regular rate and rhythm without any murmurs gallops or rubs. ABDOMEN: Soft and nontender with normal bowel sounds. No palpable organomegaly was noted. There is no palpable pulsatile mass. SKIN: Skin is clear with no lesions or rashes and otherwise unremarkable. NEUROLOGIC: Patient is alert and oriented x3. Cranial nerves II through XII are grossly intact. Motor and sensory are also intact. Normal speech, volume and content. Symmetrical smile. MUSCULOSKELETAL: Normal extremities with adequate strength and full range of motion. No lower extremity swelling or edema. No calf tenderness. LYMPHATICS: No significant lymphadenopathy is noted PSYCHIATRIC: Normal psychiatric evaluation. Limitations: no limitations Course Vital Signs 10/23/23 10:06 Temperature 97.5 F L Pulse Rate 80 Respiratory 16 Rate Blood Pressure 175/93 O2 Sat by Pulse 97 Oximetry Medical Decision Making - Medical Decision Making Was pt. sent in by a medical professional or institution (, PA, VICE ADMIRAL, urgent care, hospital, or prison...) When possible be specific @ -No Did you speak to anyone other than the patient for history (EMS, parent, family, police, friend...)? What history was obtained from this source @ -No Did you review nursing and triage notes (agree or disagree)? Why? @ -I reviewed and agree with nursing and triage notes Were old charts reviewed (outside hosp., previous admission, EMS record, old EKG, old radiological studies, urgent care reports/EKG's, prison records)? Report findings @ -No old charts were reviewed Differential Diagnosis? @ -Cervical spine fracture, skull fracture, intracranial hemorrhage, subdural, epidural, subarachnoid, this is not an all-inclusive list EKG interpreted by me (3pts min.). @ -As above X-rays interpreted by me (1pt min.). @ -None done CT interpreted by me (1pt min.). @ -CT of the brain shows no acute normality. CT of the C-spine shows no acute abnormality. U/S interpreted by me (1pt. min.). @ -None done What testing was considered but not performed or refused? (CT, X-rays, U/S, labs)? Why? @ -None What meds were considered but not given or refused? Why? @ -None Did you discuss the management of the patient with other professionals (professionals i.e. , PA, VICE ADMIRAL, lab, RT, psych nurse, social media coordinator, criminal analyst, teacher, executive officer, lining caser)? Give summary @ -No Was smoking cessation discussed for >3mins.? @ -No Was critical care preformed (if so, how long)? @ -No Were there social determinants of health that impacted care today? How? (Homelessness, low income, unemployed, alcoholism, drug addiction, transportation, low edu. Level, literacy, decrease access to med. care, usp, rehab)? @ -No Was there de-escalation of care discussed even if they declined (Discuss DNR or withdrawal of care, Hospice)? DNR status @ -No What co-morbidities impacted this encounter? (DM, HTN, Smoking, COPD, CAD, Cancer, CVA, ARF, Chemo, Hep., AIDS, mental health diagnosis, sleep apnea, morbid obesity)? @ -None Was patient admitted / discharged? Hospital course, mention meds given and route, prescriptions, significant lab abnormalities, going to OR and other pertinent info. @ -Patient was at her neurologic baseline she had no complaints she does have a small hematoma to the scalp patient will be discharged back to the [facility] for further observation Undiagnosed new problem with uncertain prognosis? @ -No Drug Therapy requiring intensive monitoring for toxicity (Heparin, Nitro, I nsulin, Cardizem)? @ -No Were any procedures done? @ -No Diagnosis/symptom? @ -Hematoma scalp Acute, or Chronic, or Acute on Chronic? @ -Acute Uncomplicated (without systemic symptoms) or Complicated (systemic symptoms)? @ -Uncomplicated Side effects of treatment? @ -No Exacerbation, Progression, or Severe Exacerbation? @ -No Poses a threat to life or bodily function? How? (Chest pain, [place], [place], pneumonia, PE, COPD, DKA, ARF, appy, cholecystitis, CVA, Diverticulitis, Homicidal, Suicidal, threat to staff... and all critical care pts) @ -No Disposition Clinical Impression: Fall, Hematoma of scalp Disposition: HOME SELF-CARE Condition: Good Instructions (If sedation given, give patient instructions): Fall Prevention for Older Adults (ED), Hematoma (ED), Head Injury (ED) Is patient prescribed a controlled substance at d/c from ED?: No Referrals: [facility] [Primary Care Provider] - 1-2 days Time of Disposition: 11:55
--- NOTE | 2023-10-23 11:44 | CT ---
EXAMINATION TYPE: CT brain amy wo con DATE OF EXAM: 10/23/2023 COMPARISON: 11/25/2021 HISTORY: Fall, head injury, hx brain ca CT DLP: 1373.4 mGycm Automated exposure control for dose reduction was used. TECHNIQUE: CT scan of the head and cervical spine are performed without contrast. Findings: Head CT: The ventricles, basal cisterns and sulci over the convexities are markedly enlarged consistent with m arked generalized atrophy. There is marked decreased density in the periventricular white matter consistent with marked chronic ischemic white matter demyelination. There is small remote infarct involving the right occipital lobe. There is no acute intra or extra-axial hemorrhage. Posterior fossa including the brainstem, fourth ventricle and cerebellar pontine angles are grossly n ormal. There are moderate to marked chronic inflammatory changes in the paranasal sinuses. There is a remote fracture of the nasal bone. Intraorbital contents are normal and symmetric. Mastoid air cells are we ll aerated. There is soft tissue swelling over the left frontal bone but no underlying calvarial fracture CT cervical spine: Craniovertebral junction relationships and prevertebral soft tissues are normal. The cervical vertebral segments are normal in height and alignment and there is no fracture subluxati on. There is stable moderate degenerative disease at the C5-6 and C6-7 levels. The bony cervical canal is widely patent and there is no bony encroachment of the neural foramina. The paraspinal soft tissues unremarkable. IMPRESSION: 1. Head CT: No acute bleed or mass effect. Soft tissue swelling over the left frontal bone but the ca lvarium is intact. There are remote nasal bone fractures. There is a remote small right occipital lob e infarct. There is moderate to marked chronic pansinusitis. 2. CT cervical spine: No acute trauma. Stable moderate degenerative disc disease in the lower cervica l spine
[2023-10-23] MEDS: ACETAMINOPHEN TAB 325 MG TAB PO STA (13:01)
--- NOTE | 2023-10-23 13:19 | XR ---
Left tibia and fibula. HISTORY: Fall. COMPARISON: None TECHNIQUE: 3 views of the left tibia and fibula were obtained. FINDINGS: There is mild diffuse osteopenia. There is no acute fracture or dislocation. There is no focal intraosseous abnormality. IMPRESSION: 1. Mild osteopenia. 2. No acute trauma.
[2023-10-23 15:32] VITALS: BP 125/79; PULSE 68
== END 2023-10-23 15:36 | disposition home or self-care (01) ==
LOC: EC 10:00
CPT/HCPCS: 70450; 72125; 99284

== ENCOUNTER 2023-11-28 14:53 | Emergency (ER) | payer MEDICARE, OTHER ==
[2023-11-28 15:03] VITALS: TEMP 98.1
--- NOTE | 2023-11-28 15:27 | ED ---
Head Injury HPI - General Chief complaint: Head Injury Stated complaint: Fall Time Seen by Provider: 11/28/23 15:00 Source: patient, EMS, RN notes reviewed Mode of arrival: EMS Limitations: altered mental status - History of Present Illness Initial comments: This is an 88-year-old female who presents to the emergency department for a head injury. Patient lives at [facility] on the [address] and fell forward out of her chair and hit the right side of her head on the heating register. Patient does have some dementia at baseline and states that she may have hit her head on the floor. Not taking any blood thinners. Denies any loss of consciousness. [facility] sent the patient in for a CT scan of the head. Denies any pain or sustaining any additional injuries. MD Complaint: head injury - Related Data Home Medications Medication Instructions Recorded Confirmed Ammonium Lactate Cream [Lac-Hydrin 1 applic TOPICAL DAILY 09/27/16 11/28/23 12% Cream] Calcium Carbonate 2,000 mg PO DAILY 09/27/16 11/28/23 Pantoprazole Sodium 40 mg PO DAILY 09/27/16 11/28/23 Cholecalciferol [Vitamin D3 (25 50 mcg PO DAILY 07/17/21 11/28/23 Mcg = 1000 Iu)] ALPRAZolam [Xanax] 0.25 mg PO BID PRN 11/28/23 11/28/23 Acetaminophen-Codeine 300-30mg 1 tab PO Q6H PRN 11/28/23 11/28/23 [Tylenol w/codeine #3] Artificial Tears-Hypromellose 1 drops BOTH EYES AC-BID PRN 11/28/23 11/28/23 [Artificial Tear Drops] Atorvastatin [Lipitor] 20 mg PO HS 11/28/23 11/28/23 Cyanocobalamin [Vitamin B-12] 500 mcg PO DAILY 11/28/23 11/28/23 Diltiazem Cd [Cardizem CD] 180 mg PO DAILY 11/28/23 11/28/23 FLUoxetine HCL [PROzac] 30 mg PO DAILY 11/28/23 11/28/23 Ipratropium-Albuterol Nebulize 3 ml INHALATION RT-Q6H PRN 11/28/23 11/28/23 [Duoneb 0.5 mg-3 mg/3 ml Soln] Lactose-Reduced Food [Ensure Plus] 237 ml PO DAILY 11/28/23 11/28/23 Methyl Salicylate/Menth/Camph 1 patch TOPICAL DAILY 11/28/23 11/28/23 [Salonpas 3.1%-6.0%-10.0% Patch] Midodrine HCl [ProAmantine] 2.5 mg PO AC-TID@07,11,16 11/28/23 11/28/23 cycloSPORINE 0.05% OPHTH SOLN 1 applicator BOTH EYES BID 11/28/23 11/28/23 [Restasis] Previous Rx's Medication Instructions Recorded Acetaminophen Tab [Tylenol] 650 mg PO Q6HR PRN tab 06/03/23 Aspirin 81 mg PO DAILY tab 07/05/23 Isosorbide Mononitrate ER [Imdur] 30 mg PO DAILY tab 07/05/23 Allergies/Adverse reactions: Allergies Allergy/AdvReac Type Severity Reaction Status Date / Time Fish Containing Products Allergy Unknown Verified 11/28/23 16:33 Iodine and Iodide Containing Allergy Unknown Verified 11/28/23 16:33 Produc Review of Systems ROS Statement: Those systems with pertinent positive or pertinent negative responses have been documented in the HPI. ROS Other: All systems not noted in ROS Statement are negative. Past Medical History Past Medical History: Cancer, Hyperlipidemia, Hypertension, Myocardial Infarction ([place]) Additional Past Medical History / Comment(s): brain CA, bladder CA, heart block Last Myocardial Infarction Date:: pt can't remember History of Any Multi-Drug Resistant Organisms: None Reported Past Surgical History: Back Surgery, Hysterectomy, Joint Replacement, Pacemaker Additional Past Surgical History / Comment(s): ablation Past Anesthesia/Blood Transfusion Reactions: No Reported Reaction Type of Cardiac Device: Unknown Device Placement Date:: 2007 Past Psychological History: No Psychological Hx Reported Smoking Status: Never smoker Past Alcohol Use History: None Reported Past Drug Use History: None Reported - Past Family History Mother Family Medical History: Myocardial Infarction ([place]) Father Family Medical History: Cancer General Exam Limitations: altered mental status General appearance: alert, in no apparent distress Head exam: Present: other (Hematoma to the right side of the forehead) Eye exam: Present: normal appearance, PERRL, EOMI. Absent: scleral icterus, conjunctival injection, periorbital swelling Respiratory exam: Present: normal lung sounds bilaterally. Absent: respiratory distress, wheezes, rales, rhonchi, stridor Cardiovascular Exam: Present: regular rate, normal rhythm, normal heart sounds. Absent: systolic murmur, diastolic murmur, rubs, gallop, clicks Neurological exam: Present: alert, oriented X3, CN II-XII intact Psychiatric exam: Present: normal affect, normal mood Skin exam: Present: warm, dry, intact, normal color. Absent: rash Course Vital Signs 11/28/23 11/28/23 14:59 17:21 Temperature 98.1 F Pulse Rate 60 63 Respiratory 20 18 Rate Blood Pressure 135/62 146/70 O2 Sat by Pulse 97 98 Oximetry Medical Decision Making - Medical Decision Making This is an 88 year old female who presents to the emergency department for a head injury. Was pt. sent in by a medical professional or institution? @ -No Did you speak to anyone other than the patient for history? @ -No Did you review nursing and triage notes? @ -Yes, and I agree, it is accurate with regards to the patient's symptoms. Were old charts reviewed? @ -No Differential Diagnosis? @ -Differential Diagnosis Head Injury: Contusion, hematoma, intracranial hemorrhage, skull fracture, whiplash, concussion, this is not meant to be an all-inclusive list. EKG interpreted by me (3pts min.)? @ -Not obtained X-rays interpreted by me (1pt min.)? @ -Not obtained CT interpreted by me (1pt min.)? @ -Computed tomography scan of the brain and c-spine obtained. My interpretation identifies no evidence of an acute intracranial hemorrhage, skull fracture, or cervical spine fracture. U/S interpreted by me (1pt. min.)? @ -Not obtained What testing was considered but not performed? (CT, X-rays, U/S, labs)? Why? @ -None What meds were considered but not given? Why? @ None Did you discuss the management of the patient with other professionals? @ -No Did you reconcile home meds? @ -No Was smoking cessation discussed for >3mins.? @ -No Was critical care preformed (if so, how long)? @ -No Were there social determinants of health that impacted care today? How? (Home lessness, low income, unemployed, alcoholism, drug addiction, transportation, low edu. Level, literacy, decrease access to med. care, detention, rehab)? @ -No Was there de-escalation of care discussed even if they declined? (Discuss DNR or withdrawal of care, Hospice)? @ -No What co-morbidities impacted this encounter? (DM, HTN, Smoking, COPD, CAD, Ca ncer, CVA, Hep., AIDS, mental health diagnosis, sleep apnea, morbid obesity)? @ -Dementia Was patient admitted / discharged? @ -Discharged. CT scan of the brain and C-spine obtained revealing no acute process. Patient had no pain or complaints otherwise and denies sustaining any additional injuries. Patient transferred back to [facility] via EMS in stable condition. Case discussed with ED attending Dr. Tariq. Return precautions reviewed in depth, the patient is instructed to return to the emergency department with any new, worsening, or concerning symptoms. Patient verbalized understanding. Undiagnosed new problem with uncertain prognosis? @ -None Drug Therapy requiring intensive monitoring for toxicity (Heparin, Nitro, Insulin, Cardizem)? @ -None Were any procedures done? @ -None Diagnosis/symptom? @ -Head injury Acute, or Chronic, or Acute on Chronic? @ -Acute Uncomplicated (without systemic symptoms) or Complicated (systemic symptoms)? @ -Uncomplicated Side effects of treatment? @ -None Exacerbation, Progression, or Severe Exacerbation] @ -Not applicable Poses a threat to life or bodily function? @ -No - Radiology Data Radiology results: report reviewed, image reviewed Disposition Clinical Impression: Closed head injury Disposition: HOME SELF-CARE Condition: Fair Instructions (If sedation given, give patient instructions): Head Injury (ED) Additional Instructions: Return to the emergency department with any new, worsening, or concerning symptoms. Follow up with your primary care provider in 1-2 days. Is patient prescribed a controlled substance at d/c from ED?: No Referrals: Karo King MD [Primary Care Provider] - 1-2 days Time of Disposition: 16:50
--- NOTE | 2023-11-28 16:42 | CT ---
EXAMINATION TYPE: CT brain amy wo con DATE OF EXAM: 11/28/2023 COMPARISON: 10/23/2023 HISTORY: HEAD INJURY CT DLP: 1263.1 mGycm Automated exposure control for dose reduction was used. TECHNIQUE: CT scan of the head and cervical spine are performed without contrast. Findings: Head CT: The ventricles, basal cisterns and sulci over convexities are markedly enlarged consistent with marke d atrophy. There is marked decreased density in the periventricular white white consistent with marked chronic i schemic white matter demyelination. There is a remote right occipital lobe infarct. There is no acute intra or extra-axial hemorrhage Posterior fossa including the brainstem, fourth ventricle and cerebellar pontine angles are grossly n ormal. The intraorbital contents appear normal and symmetric. There is marked chronic pansinusitis. The mast oid air cells are well aerated. There is mild soft tissue swelling over the right frontal bone but the calvarium is intact. CT cervical spine: Craniovertebral junction relationships and prevertebral soft tissues are normal. The cervical vertebral segments are normal in height and alignment and there is no fracture subluxati on. There is mild degenerative disc disease at C5-6 and C6-7 levels. There is mild diffuse arthropathy of the facets and uncovertebral joints. The bony cervical canal is widely patent and there is no bony e ncroachment of the neural foramina. The paraspinal soft tissues unremarkable. IMPRESSION: 1. Head CT: No acute bleed or mass effect. Marked atrophy and chronic ischemic white matter demyelina tion. Remote right occipital lobe infarct 2. CT cervical spine: No acute trauma. Degenerative changes as described above. [facility], Workstation: [id number] 11/28/2023 4:39 PM
[2023-11-28 17:22] VITALS: BP 146/70; PULSE 63; RESP 18
== END 2023-11-28 20:07 | disposition home or self-care (01) ==
LOC: EC 14:53
CPT/HCPCS: 70450; 72125; 99284